=== PATIENT | male | born 1935 | race Caucasian/White ===

== ENCOUNTER → 2016-05-25 | Outpatient (CLI) | payer MEDICARE, BC ==
[2015-06-13 11:16] VITALS: BP 127/62
[~2016-05-25] MED LIST: ALBU2.5V13 NEB; AMLO10TA2 PO; AMLO1TAB13 PO; ASPI-482 PO; ASPI81TA9 PO; BYSTOLIC20 MG PO; CHOL10002 PO; CHOL20003 PO; CYAN10005 PO; EZET1TAB5 PO; FERR325T72 PO; FLUT16SP NS; FLUT1DIS3 INH; FURO-68 PO; GABA600T2 PO; LOSA100T6 PO; MULT-658 PO; MULT1TAB97 PO; NABU500T PO; NIAC1TBM PO; NITR0.4T SL; NITR1PAT9 TD; OMEG1CAP16 PO; OMEG1CAP43 PO; PANT40TA5 PO; SUCR1TAB29 PO
--- NOTE | 2016-05-25 15:18 | EKG ---
[facility] [address] [place] [address] Test Date: 2016-05-25 Test Time: 15:23:13 Pat Name: STEPHANY MCNEILL Department: Room: Gender: M Engineer Internship: ENRRIQUE : 1935 Requested By: SHAN JENKINS Order Number: [id number] Reading MD: Ra Domingo Measurements Intervals [place] Rate: 47 P: 90 NM: 174 QRS: -14 QRSD: 118 T: 6 QT: 508 QTc: 454 Interpretive Statements SINUS BRADYCARDIA RBBB NON-SPECIFIC ST/T CHANGES Electronically Signed On 05-26-2016 15:43:28 RUN LEAD by Ra Domingo
[2016-05-25 15:23] LABS: BASO # 0.1 x10^3/uL (0.0-0.2); BASO % 1 % (0-3); EOS % 3 % (0-3); HEMATOCRIT 42.3 % (39.0-53.0); LYMPH # 1.6 x10^3/uL (1.0-4.8); LYMPH % 26 % (24-48); MEAN CORPUSCULAR HEMOGLOBIN 30 pg (25-35); MEAN CORPUSCULAR HGB CONC 33 g/dL (31-37); MEAN CORPUSCULAR VOLUME 90 fL (79-100); MONO % 9 % (0-9); NEUT % 61 % (31-73); PLATELET COUNT 141 x10^3/uL (140-400); RED BLOOD COUNT 4.71 x10^6/uL (4.30-5.70); RED CELL DISTRIBUTION WIDTH 12.6 % (11.5-14.5)
[2016-05-25 15:45] LABS: ALBUMIN 3.6 g/dL (3.4-5.0); ALBUMIN/GLOBULIN RATIO 1.1 (1.0-1.7); CALCIUM 9.1 mg/dL (8.5-10.1); CREATININE 1.6 mg/dL (0.7-1.3); GFR 41.9; POTASSIUM 3.9 mmol/L (3.5-5.1); TOTAL BILIRUBIN 0.6 mg/dL (0.2-1.0); TOTAL PROTEIN 6.8 g/dL (6.4-8.2)
== END | disposition home or self-care (01) ==
LOC: SURGPAT 14:14
PROVIDERS: ATTEND Neurological Surgery
DX: I45.19 Other right bundle-branch block (principal)
CPT/HCPCS: 36415; 80053; 85027; 87641; 93005

== ENCOUNTER → 2016-10-16 | Outpatient (CLI) | payer MEDICARE, BC ==
[2016-05-28 13:56] VITALS: BP 120/55
[~2016-10-16] MED LIST changes: -ALBU2.5V13 NEB; +ALBU2.5V14 NEB; +BUPIVACAINE MPF 0.25% 10 ML VIAL. ONE; +HYDR-2762 PO; +methylPREDNISolone ACETATE 40 MG/ML VIAL. ONE
--- NOTE | 2016-10-16 23:43 | PAIN ---
DATE OF SERVICE: 10/16/2016 DIAGNOSES: 1. Lumbar spondylosis with post-lumbar laminectomy syndrome. 2. Myofascial pain. HISTORY OF PRESENT ILLNESS: The patient is a 81-year-old male who returns for followup status post previous lumbar facet injections as well as radiofrequency ablation; this was in 01/2016. The patient eventually had surgery for decompressive laminectomy at L4 and L5 levels with Dr. Lei Sheldon. The patient reports he did very well with this and back pain and most of the leg pain is gone. He reports that there is significant amount of pain now in the right side and points to the area just lateral to his posterior-superior iliac spine in the superior medial aspect of the gluteus on the right side and also similar in the same area on the left side, but less intense. The patient reports it awakens him from sleep occasionally, but not every night. He usually sleeps fairly well. It is better when he is sitting down or lying down and worse with changing positions only; going from sitting to standing position or vice versa is when he feels the pain most significantly and most significantly on the right side. The patient reports it is an 8 on a scale of 10 at all times unless he is lying down. The patient reports that it is much better. The patient reports no new motor or sensory deficits, no new bowel or bladder incontinence or other complaints and occasional radiation into the left lower extremity, but the pain is significantly exacerbated on the right side worse than the left and again with changing positions, most specifically with leaning backwards, but the pain is not in the spine itself, it is to the lateral aspect of the iliac posterior spine and into the gluteus. PHYSICAL EXAMINATION: VITAL SIGNS: Today, the patient's blood pressure is 126/74, pulse 47, respirations 20, temperature is 97.8 degrees Fahrenheit, height is 5 feet 7 inches, weight is 182 pounds. GENERAL: The patient is awake, alert, oriented, appropriate, very pleasant demeanor. HEENT: Shows normocephalic and atraumatic. Extraocular movements are intact and symmetrical. The patient is wearing eyeglasses. Oral cavity shows mucous membranes are moist and pink. Dentition is intact. NECK: Shows anterior throat supple without palpable lymphadenopathy noted. Swallow reflex is symmetrical. CHEST: Shows normal on inspection. Breath sounds are clear to auscultation bilaterally. HEART: Shows S1 and S2 clear. No murmurs auscultated. ABDOMEN: Soft, nontender, nondistended. No palpable organomegaly is noted. No rebound or guarding demonstrated. BACK: Shows spine grossly in the midline, well-healed surgical scarring is noted in the lumbar distribution, some minor flattening of lumbar paraspinous musculature, is symmetrical on palpation and inspection. No significant tenderness. The patient shows good rotational motion both laterally greater than 10 degrees right and left as well as extension greater than 10 degrees, forward flexion of 45 degrees without pain in the spine itself. With palpation, it shows significant tenderness in the lateral aspect just past the posterior superior iliac spine bilaterally, worse on the right than the left with significant very severe tenderness with palpation, but without significant radiation on either side. Very firm rope-like musculature in the superior medial gluteus and this is where the patient demonstrates with one finger pointing to the pain when he is changing positions and moving. EXTREMITIES: Lower extremities showed deep tendon reflexes 1+ in the patellar and tendo calcaneus tendons. Motor exam is strong with 5/5 dorsiflexion, extension, quadriceps and hamstring flexion. Options were discussed with the patient. The patient's old chart was reviewed as his current medication regimen and updated. Current review of systems is updated today as well, and we will proceed with trigger point injections of the gluteus musculature bilaterally as identified. Risks were again discussed including but not limited to bleeding, infection, possibility of intravascular injection sequelae, spread of local anesthetic and numbness, side effects of steroid medication as well as poor results regarding pain control. The patient understands and wishes to proceed. The patient will return to the clinic in approximately 2 weeks for followup, was counseled on his return appointment, activity level and side effects to be aware of. DIAGNOSES: 1. Myofascial pain. 2. Lumbar degenerative disk disease with spondylosis and post-lumbar laminectomy syndrome. PROCEDURE: Trigger point injection of bilateral superior medial gluteus using local anesthetic under sterile prep and drape. MEDICATIONS INJECTED: A total of 40 mg of Depo-Medrol; a total of 10 mL of 0.25% bupivacaine, 5 mL to right side and 5 mL to left side, with negative aspiration prior to injection on each side. CONDITION AT DISCHARGE: Stable. The patient tolerated the procedure well, had no complications. ARBEN BUNCH MD DR: Kaylyn JOB#: [id number] / [id number]
== END | disposition home or self-care (01) ==
LOC: PNCL 07:39
PROVIDERS: ATTEND Anesthesiology
DX: M79.1 Myalgia (principal); M51.36 Other intervertebral disc degeneration, lumbar region; M47.816 Spondylosis without myelopathy or radiculopathy, lumbar region; M96.1 Postlaminectomy syndrome, not elsewhere classified; I25.10 Atherosclerotic heart disease of native coronary artery without angina pectoris; E78.00 Pure hypercholesterolemia, unspecified; I10 Essential (primary) hypertension; J44.9 Chronic obstructive pulmonary disease, unspecified; M19.90 Unspecified osteoarthritis, unspecified site; I73.9 Peripheral vascular disease, unspecified; Z98.41 Cataract extraction status, right eye
CPT/HCPCS: 20552; J1030; J3490

== ENCOUNTER → 2016-12-31 | Outpatient (CLI) | payer MEDICARE, BC ==
[2016-05-28 13:56] VITALS: BP 120/55
[~2016-12-31] MED LIST changes: +ASPI-612 PO; -ASPI81TA9 PO; -CHOL20003 PO; +CHOL20009 PO; +EZET1TAB35 PO; -EZET1TAB5 PO; -OMEG1CAP16 PO; +OMEG1CAP27 PO; -SUCR1TAB29 PO; +SUCR1TAB35 PO
--- NOTE | 2016-12-31 15:29 | PAIN ---
DATE OF SERVICE: 12/31/2016 PROGRESS NOTE FOR PAIN CLINIC DIAGNOSES: 1. Lumbar spondylosis with post-lumbar laminectomy syndrome. 2. Myofascial pain. HISTORY OF PRESENT ILLNESS: The patient is a 81-year-old male who returns for followup status post trigger point injections on 10/16/2016. The patient reports he did very well for about a month. The pain was near 100% improved. After that time, the pain began to return in his low back, bilateral posterior gluteus and posterior hips only with walking, standing, changing positions or twisting of the spine. The patient reports the pain is at an 8 on a scale of 10 at its worst and it is at least at 5 and it is 5 today. The patient reports it is aching, dull, shooting, constant becoming more severe. The patient did have a lumbar laminectomy in 05/2016 and the pain was much reduced after that time, but after a few months, the pain began to return. He did very well after trigger point injections in 10/2016, but the pain is now returning again in the similar areas in the low back. The patient reports no new motor or sensory deficits, no new bowel or bladder incontinence. He is sleeping through the night, feels much better when he is off his feet, sitting or lying down, much worse with standing and walking. PHYSICAL EXAMINATION: VITAL SIGNS: The patient's blood pressure is 116/58, pulse 51, respirations 18, temperature 98.0 degrees Fahrenheit. Height is 5 feet 7 inches, weighs 182 pounds. GENERAL: The patient is awake, alert, oriented, appropriate, very pleasant demeanor. HEENT: Head shows normocephalic, atraumatic. Extraocular movements are intact and symmetrical. Oral cavity, mucous membranes are moist and pink. Dentition is intact. NECK: Shows anterior throat supple. Swallow reflex is symmetrical. CHEST: Normal on inspection. Breath sounds clear to auscultation bilaterally. HEART: Shows S1 and S2 clear. ABDOMEN: Soft, nontender, nondistended. No palpable organomegaly with no rebound or guarding demonstrated. BACK: Shows spine grossly in the midline. Well healed surgical scars noted in the lumbar distribution. Lumbar paraspinous muscle shows some moderate tenderness with palpation in the middle and upper aspects, in the lower aspects there is very severe tenderness with very firm rope-like musculature bilaterally, more tender on the right than the left in the paraspinous musculature. This is also true in to the superior medial gluteus, again worse on the right side than the left with very firm rope-like musculature, very tender and consistent with trigger point areas of musculature in the bilateral areas of the gluteus as on previous exam. No specific radiation is demonstrated. The patient shows good rotational motion of lumbar spine without significant increase in pain. EXTREMITIES: Lower extremities show deep tendon reflexes 1+ in the patellar and tendo calcaneus tendons. Motor exam is strong with 5/5 dorsiflexion, extension, quadriceps and hamstring flexion. Options were discussed with the patient and the patient's old chart was reviewed as his current medication regimen updated. Current review of systems updated today as well. We will proceed with trigger point injections of the bilateral lumbar paraspinous musculature as well as bilateral gluteus musculature. Risks were discussed including but not limited to bleeding, infection, possibility of intravascular injection sequelae, spread of local anesthetic and numbness, side effects of steroid medication and poor results regarding pain control. The patient understands and wishes to proceed. The patient will return to clinic in approximately 2 weeks for followup. He was counseled to return appointment, activity level and side effects to be aware of. DIAGNOSIS: Myofascial pain. PROCEDURE: Trigger point injections, bilateral lumbar paraspinous musculature and bilateral gluteus musculature using local anesthetic under sterile prep and drape. MEDICATIONS INJECTED: A 40 mg of Depo-Medrol plus 7 mL of 0.25% bupivacaine with negative aspiration at each injection. CONDITION AT DISCHARGE: Stable. The patient tolerated procedure well, had no complications. ARBEN BUNCH MD DR: DOLLY/lauren JOB#: [id number] / [id number]
== END | disposition home or self-care (01) ==
LOC: PNCL 10:25
PROVIDERS: ATTEND Anesthesiology
DX: M79.1 Myalgia (principal); M47.816 Spondylosis without myelopathy or radiculopathy, lumbar region; M96.1 Postlaminectomy syndrome, not elsewhere classified; I25.10 Atherosclerotic heart disease of native coronary artery without angina pectoris; E78.00 Pure hypercholesterolemia, unspecified; I10 Essential (primary) hypertension; J44.9 Chronic obstructive pulmonary disease, unspecified; M19.90 Unspecified osteoarthritis, unspecified site; F17.200 Nicotine dependence, unspecified, uncomplicated; I73.9 Peripheral vascular disease, unspecified; Z98.41 Cataract extraction status, right eye; Z86.69 Personal history of other diseases of the nervous system and sense organs; Z88.8 Allergy status to other drugs, medicaments and biological substances
CPT/HCPCS: 20553; J1030; J3490

== ENCOUNTER → 2017-03-09 | Outpatient (CLI) | payer MEDICARE, BC ==
[2017-02-09 11:04] VITALS: BP 142/47
[~2017-03-09] MED LIST changes: +CARV12.5 PO; +CRESTOR20 MG PO; +FERR-26 PO
--- NOTE | 2017-03-09 12:15 | PAIN ---
DATE OF SERVICE: 03/09/2017 DIAGNOSES: 1. Lumbar spondylosis with post-lumbar laminectomy syndrome. 2. Myofascial pain. HISTORY OF PRESENT ILLNESS: The patient is a 81-year-old male who returns for followup status post trigger point injections, last seen on 12/31/2016. The patient did very well with these with about 80-90% improvement after the last visit. The patient reports he is having increased pain now in the low back and into his right hip as well as the mid upper back on the right side greater than the left, but across the low back bilaterally. The patient reports it is aching, sharp and painful and rates as 9 on a scale of 10 at all times at worst, least and average. The patient reports it is worse with walking, standing, change in positions, better with lying down, but it does awaken him from sleep if he lays on his right side. No radiation to the lower extremities. No difficulty with any loss of function with the lower extremities. No bowel or bladder incontinence. PHYSICAL EXAMINATION: VITAL SIGNS: Today, the patient's blood pressure is 130/62, pulse 54, respirations are 18, temperature 97.8 degrees Fahrenheit, height is 5 feet 7 inches, weight is 173 pounds. GENERAL: The patient is awake, alert, oriented, appropriate, very pleasant demeanor. HEENT: Head shows normocephalic, atraumatic. The patient wears eyeglasses. Extraocular movements are intact and symmetrical. Oral cavity, mucous membranes are moist and pink. Dentition is intact. NECK: Shows anterior throat supple without palpable lymphadenopathy noted. Swallow reflex is symmetrical. CHEST: Shows normal on inspection. Breath sounds clear to auscultation bilaterally. HEART: Shows S1 and S2 clear. ABDOMEN: Soft, nontender, nondistended. No palpable organomegaly is noted. No rebound or guarding demonstrated. BACK: Shows spine grossly in the midline. Lumbar paraspinous muscle shows some moderate tenderness with palpation in the thoracic paraspinous musculature on the right and very firm rope-like musculature detected on the right side only. Left side is supple and nontender. Very firm, tender musculature consistent with trigger point musculature on the right side. This is true into the lumbar paraspinous musculature as well on the right, but not the left. A very firm, very tender rope-like musculature, very easily palpable and very tender with palpation, but without radiation in the right paraspinous musculature in the upper lumbar distribution. In the lower lumbar distribution, the patient has tenderness on both sides, right and left with very firm rope-like musculature as well in the lower lumbar distribution bilaterally only. The patient also has some significant tenderness and the most tender point over the right lateral and superior gluteus is a very firm rope-like musculature, which has a significant consistency, a very firm tenderness and is very tender with some radiation into the posterior thigh with deep palpation. EXTREMITIES: The patient's lower extremities showed deep tendon reflexes at 1+ in the patellar and tendo calcaneus tendons. Motor exam is strong with 5/5 dorsiflexion, extension, quadriceps and hamstrings and are equal. Options were discussed with the patient. The patient's old chart was reviewed as his current medication regimen updated. Current review of systems updated today as well. We will proceed with trigger point injections of the aforementioned musculature. Risks were again discussed including, but not limited to bleeding, infection, possibility of intravascular injection sequelae, spread of local anesthetic and numbness, side effects of steroid medication and poor results regarding pain control. The patient understands and wishes to proceed. The patient will return to clinic in approximately 2 weeks for followup, was counseled on return appointment, activity level and side effects to be aware of. DIAGNOSIS: Myofascial pain. PROCEDURE: Trigger point injections of bilateral lumbar inferior paraspinous musculature, right superior lumbar musculature, right thoracic paraspinous musculature and right gluteus musculature using a sterile prep and drape under local anesthetic. MEDICATIONS INJECTED: A total of 40 mg of Depo-Medrol plus total of 6 mL of 0.25% bupivacaine after negative aspiration at each injection. CONDITION AT DISCHARGE: Stable. The patient tolerated procedure well, had no complications. ARBEN BUNCH MD DR: DOLLY/lauren JOB#: [id number] / [id number]
== END | disposition home or self-care (01) ==
LOC: PNCL 10:09
PROVIDERS: ATTEND Anesthesiology
DX: M79.1 Myalgia (principal); M47.816 Spondylosis without myelopathy or radiculopathy, lumbar region; M96.1 Postlaminectomy syndrome, not elsewhere classified; I11.0 Hypertensive heart disease with heart failure; I50.9 Heart failure, unspecified; I25.10 Atherosclerotic heart disease of native coronary artery without angina pectoris; I73.9 Peripheral vascular disease, unspecified; E78.00 Pure hypercholesterolemia, unspecified; J44.9 Chronic obstructive pulmonary disease, unspecified; F17.200 Nicotine dependence, unspecified, uncomplicated; Z88.8 Allergy status to other drugs, medicaments and biological substances; Z98.41 Cataract extraction status, right eye; Z86.69 Personal history of other diseases of the nervous system and sense organs; Z86.39 Personal history of other endocrine, nutritional and metabolic disease
CPT/HCPCS: 20553; J1030; J3490

== ENCOUNTER → 2017-03-23 | Outpatient (CLI) | payer MEDICARE, BC ==
[2017-02-09 11:04] VITALS: BP 142/47
[~2017-03-23] MED LIST changes: +ALLO300T PO; -BUPIVACAINE MPF 0.25% 10 ML VIAL. ONE; +GADOBUTROL 7.5 MMOL/7.5 ML VIAL IV ONE; -methylPREDNISolone ACETATE 40 MG/ML VIAL. ONE
--- NOTE | 2017-03-23 14:33 | KCIC ---
EXAM: Lumbar spine MRI without and with contrast. HISTORY: Lower back pain and left lower extremity radiculopathy. TECHNIQUE: Multiplanar, multisequence magnetic resonance imaging of the lumbar spine was performed prior to and following the administration of 7 cc Gadavist intravenous contrast. COMPARISON: None. FINDINGS: There is minimal retrolisthesis of L5 on S1. There is straightening of lumbar lordosis. There is degenerative endplate remodeling with osteophytosis and Schmorl's node formation at all levels. There is disc desiccation at all levels. The conus terminates at L1. There are small renal cortical cysts. There are postoperative changes at L4-L5, described in detail below. At L1-L2, there is anterior predominant endplate remodeling. There is no stenosis. At L2-L3, there is a disc bulge and endplate remodeling. There is mild facet arthropathy. There is hypertrophy of the ligament of flavum. There is mild central canal stenosis. At L3-L4, there is a disc bulge and endplate line. There is mild facet arthropathy. There is hypertrophy of the ligamentum flavum. There is mild central canal stenosis. At L4-L5, there are partial laminectomy changes. There is enhancing scar/granulation tissue within the laminectomy decompression space and bilateral lateral recesses. There is a posterior central to right paracentral disc protrusion with right paracentral superior extrusion extending 12 mm superior to the disc space. There is also a peripheral enhancing 13 x 11 x 4 mm extruded or sequestered disc fragment along the left paracentral aspect of L4. These findings are superimposed on a diffuse disc bulge and endplate osteophytosis. There is moderate facet arthropathy. There is mild bilateral foraminal stenosis. There is severe central canal stenosis despite partial laminectomy changes at this level. At L5-S1, there is a disc bulge and endplate remodeling. There is mild bilateral facet arthropathy. There is mild central canal stenosis. IMPRESSION: 1. L4-L5: Posterior central to right paracentral disc protrusion with superior extrusion and left paracentral superior disc extrusion or sequestered disc fragment superimposed on a disc bulge, endplate osteophytosis and facet arthropathy, resulting in mild bilateral foraminal and severe central canal stenosis. There are partial laminectomy changes with associated suspected scar/granulation tissue within the laminectomy decompression space and lateral recesses at this level. 2. Degenerative change at the remainder of the lumbar levels, described in detail above. Electronically signed by: Karlie Smith MD (03/23/2017 2:29 PM) [id number]
== END | disposition home or self-care (01) ==
LOC: KCIC MRI 13:19
PROVIDERS: ATTEND Neurological Surgery
DX: M48.07 Spinal stenosis, lumbosacral region (principal); M48.061 Spinal stenosis, lumbar region without neurogenic claudication; M54.10 Radiculopathy, site unspecified; N28.1 Cyst of kidney, acquired; I10 Essential (primary) hypertension; J44.9 Chronic obstructive pulmonary disease, unspecified; Z79.01 Long term (current) use of anticoagulants
CPT/HCPCS: 72158; A9585

== ENCOUNTER → 2017-03-30 | Outpatient (CLI) | payer MEDICARE, BC ==
[2017-02-09 11:04] VITALS: BP 142/47
[~2017-03-30] MED LIST changes: +DOCU-109 PO; -GADOBUTROL 7.5 MMOL/7.5 ML VIAL IV ONE; +METH750T2 PO
[2017-03-30 14:58] LABS: BASO # 0.1 x10^3/uL (0.0-0.2); BASO % 1 % (0-3); EOS % 3 % (0-3); HEMATOCRIT 42.6 % (39.0-53.0); HEMOGLOBIN 14.3 g/dL (13.0-17.5); LYMPH # 1.9 x10^3/uL (1.0-4.8); LYMPH % 22 % (24-48); MEAN CORPUSCULAR HEMOGLOBIN 30 pg (25-35); MEAN CORPUSCULAR HGB CONC 34 g/dL (31-37); MEAN CORPUSCULAR VOLUME 88 fL (79-100); MONO % 7 % (0-9); NEUT % 67 % (31-73); PLATELET COUNT 146 x10^3/uL (140-400); RED BLOOD COUNT 4.82 x10^6/uL (4.30-5.70); RED CELL DISTRIBUTION WIDTH 14.9 % (11.5-14.5); WHITE BLOOD COUNT 8.4 x10^3/uL (4.0-11.0)
[2017-03-30 15:28] LABS: ALBUMIN 3.6 g/dL (3.4-5.0); ALBUMIN/GLOBULIN RATIO 1.1 (1.0-1.7); CALCIUM 9.4 mg/dL (8.5-10.1); CREATININE 1.5 mg/dL (0.7-1.3); GFR 45.1; POTASSIUM 3.6 mmol/L (3.5-5.1); TOTAL BILIRUBIN 0.8 mg/dL (0.2-1.0); TOTAL PROTEIN 6.9 g/dL (6.4-8.2)
--- NOTE | 2017-03-30 17:21 | RAD ---
Chest, 2 views, 03/30/2017: History: Preop evaluation for lumbar surgery Comparison is made to a study from 02/07/2017. The heart size and pulmonary vascularity are normal. A coronary artery stent is projected over the anterior aspect of the heart. There is calcific plaquing of the aorta. No pulmonary infiltrates are seen. There is no evidence of pleural fluid. Moderate spurring is present in the spine. A surgical plate and screws is evident in the lower cervical region. IMPRESSION: No acute cardiopulmonary abnormality is detected.
== END | disposition home or self-care (01) ==
LOC: SURGPAT 14:18
PROVIDERS: ATTEND Neurological Surgery
DX: Z01.818 Encounter for other preprocedural examination (principal); M51.26 Other intervertebral disc displacement, lumbar region; Z95.5 Presence of coronary angioplasty implant and graft
CPT/HCPCS: 36415; 71020; 80053; 85025; 87641

== ENCOUNTER 2017-04-01 06:48 | Observation (INO) | payer MEDICARE, BC ==
--- NOTE | 2017-03-31 15:06 | PREOP HP ---
DATE OF SERVICE: 04/01/2017 HISTORY OF PRESENT ILLNESS: The patient is a pleasant 81-year-old man who is having difficulty with low back pain along with pain which radiates into his left leg. That pain tends to radiate into the left anterior lateral thigh and to the knee. The problem started about one month ago and has been slowly worsening. He rates his pain as a 10/10. He says he is extremely sore in the mornings. He says that he fell this morning after his leg gave out. He is taking oxycodone for pain. He did undergo lumbar surgery at L4-L5 in 05/2016 and did very well until about a month ago. PAST MEDICAL HISTORY: Arthritis, hypertension, ulcer. PAST SURGICAL HISTORY: Cardiac stent 2009, lumbar laminectomy, L4-L5, 05/2016. FAMILY HISTORY: Hypertension. SOCIAL HISTORY: Retired. . Quit smoking greater than 10 years ago. Drinks alcohol one to two times per month. ALLERGIES: No known drug allergies. CURRENT MEDICATIONS: Amlodipine, gabapentin, fish oil, Centrum, vitamin D, vitamin B12, carvedilol, rosuvastatin, furosemide, allopurinol. REVIEW OF SYSTEMS: A 12-point review of systems was obtained and is noncontributory except for that mentioned above. NEUROSURGERY EXAMINATION: GENERAL APPEARANCE: Alert, pleasant, no acute distress. HEAD: Normocephalic and atraumatic. SKIN: Warm and dry. BACK: Lower lumbar spine tender to palpation, lumbar incision well healed. EXTREMITIES: No clubbing, cyanosis, or edema. NEUROLOGIC: Alert and oriented x 3. Strength 5/5 in bilateral lower extremities except 4/5 left hip flexor and 4+/5 left quadriceps. Sensory intact to light touch in bilateral lower extremities except for decreased in left anterior thigh and anterior leg to light touch. Reflexes trace and symmetric in lower extremities, negative straight leg raising, unsteady antalgic gait favoring his left leg. IMAGING: Reviewed. I reviewed his lumbar MRI scan. On that study at L4-L5 there are postoperative changes. On the right side, there is a right paracentral disk protrusion with superior extrusion. On the left side, there is an enhancing left sequestered disk fragment, which is extruded superiorly on the left behind the mid and upper body of L4. There is severe central canal stenosis associated with disk herniations. PLAN: The patient has severe lumbar spinal stenosis associated with large disk herniations. The disk herniation on the left side is not as large as the problem on the right, but is associated with significant symptomatology and leg weakness. He should undergo lumbar laminectomy and diskectomy. I did discuss this with the patient and his . They understand. They would like for me to go ahead. We will make the arrangements. SHAN JENKINS MD DR: YASH/lauren JOB#: [id number] / [id number]
[2017-04-01] VITALS (10 sets, daily range): BP systolic 114–132; BP diastolic 56–76
[~2017-04-01] VITALS: Ht 170.2 cm; Wt 78.0 kg
[~2017-04-01 06:48] MED LIST changes: +BACITRACIN 50,000 UNIT in IV NORMAL SALINE 1000ML BAG 1,000 ML IRR ONE; -DOCU-109 PO; -METH750T2 PO
[2017-04-01] MEDS ORDERED: MORPHINE SULFATE 2 MG/ML DISP.SYRIN. IV PRN (07:00)
[2017-04-01] MEDS ORDERED: ONDANSETRON PF 4 MG/2 ML VIAL. IV PRN ×2 (07:00→14:45)
[2017-04-01] MEDS ORDERED: fentaNYL PF VIAL 100 MCG/2 ML VIAL IV PRN ×3 (07:00→14:45)
[2017-04-01] MEDS ORDERED: PROCHLORPERAZINE 10 MG/2 ML VIAL. IV PRN (07:00)
[2017-04-01] MEDS ORDERED: LIDOCAINE 1% PF 2 ML VIAL. ID PRN (07:00)
[2017-04-01] MEDS ORDERED: HYDROmorphone 2 MG/ML VIAL IV PRN (07:00)
[2017-04-01] MEDS ORDERED: GELATIN SPONGE SIZE 100. ONE (07:28)
[2017-04-01] MEDS ORDERED: KETOROLAC 60 MG/2 ML INJ FOR OR. ONE (07:28)
[2017-04-01] MEDS ORDERED: BUPIVAC MPF-EPI 0.5%-1:200000 30 ML VIAL. ONE (07:28)
[2017-04-01] MEDS ORDERED: THROMBIN TOPICAL 20,000 UNIT SPRAY.SYRN KIT TP ONE (07:29)
[2017-04-01] MEDS: IV RINGERS,LACTATED 1000ML 1,000 ML IV SCH ×2 (07:30→15:10)
[2017-04-01] MEDS ORDERED: PROPOFOL 20 ML IV ONE (08:03)
[2017-04-01] MEDS ORDERED: DEXAMETHASONE SOD PHOS 20 MG/5 ML VIAL. ONE (08:03)
[2017-04-01] MEDS ORDERED: LIDOCAINE 2% PF Vial for OR 5 ML VIAL. ONE (08:03)
[2017-04-01] MEDS ORDERED: ONDANSETRON PF 4 MG/2 ML VIAL. ONE (08:03)
[2017-04-01] MEDS ORDERED: ROCURONIUM 50 MG/5 ML VIAL. ONE (08:04)
[2017-04-01] MEDS ORDERED: PHENYLEPHRINE 10 MG/ML VIAL. ONE (08:04)
[2017-04-01] MEDS ORDERED: fentaNYL PF VIAL 100 MCG/2 ML VIAL ONE (08:04)
[2017-04-01] MEDS ORDERED: REMIFENTANIL 2 MG VIAL. IV ONE (08:04)
[2017-04-01] MEDS ORDERED: DESFLURANE 61 TO 120 MINUTES IH ONE (10:12)
[2017-04-01] MEDS ORDERED: PROPOFOL 100 ML IV ONE (10:36)
[2017-04-01] MEDS ORDERED: GLYCOPYRROLATE 1 MG/5 ML VIAL. ONE (10:36)
[2017-04-01] MEDS ORDERED: NEOSTIGMINE METHYLSULFATE 5 MG/5 ML SYRINGE. ONE (10:37)
[2017-04-01] MEDS ORDERED: DESFLURANE > 120 MINUTES IH ONE (11:23)
[2017-04-01] MEDS ORDERED: PROPOFOL 50 ML IV ONE (12:12)
[2017-04-01] MEDS ORDERED: REMIFENTANIL 1 MG VIAL. IV ONE (12:47)
[2017-04-01] MEDS ORDERED: 0.9 % SODIUM CHLORIDE 50 ML VIAL. IJ ONE (12:47)
[2017-04-01] MEDS ORDERED: NITROGLYCERIN SUBLINGUAL 0.4 MG BOTTLE OF 25. SL PRN (14:30)
[2017-04-01] MEDS: POTASSIUM CL 20MEQ D5-0.45NACL 1,000 ML IV SCH (14:32)
[2017-04-01] MEDS ORDERED: 0.9 % SODIUM CHLORIDE 10 ML DISP.SYRIN. IV PRN (14:45)
[2017-04-01] MEDS ORDERED: MAGNESIUM HYDROXIDE 2,400 MG/30 ML ORAL.SUSP. PO PRN (14:45)
[2017-04-01] MEDS ORDERED: HYDROcodone/APAP 7.5/325MG 1 TAB TABLET PO PRN (14:45)
[2017-04-01] MEDS ORDERED: diphenhydrAMINE HCL 25 MG CAPSULE PO PRN (14:45)
[2017-04-01] MEDS ORDERED: MAG HYDROX/ALUMINUM HYD/SIMETH 30 ML ORAL.SUSP PO PRN (14:45)
[2017-04-01] MEDS ORDERED: diphenhydrAMINE 50 MG/ML VIAL IV PRN (14:45)
[2017-04-01] MEDS ORDERED: CALCIUM CARBONATE 500 MG TAB.CHEW PO PRN (14:45)
[2017-04-01] MEDS ORDERED: ACETAMINOPHEN 325 MG TABLET. PO PRN (14:45)
[2017-04-01] MEDS: ALLOPURINOL 300 MG TABLET. PO SCH (15:00)
[2017-04-01] MEDS: fentaNYL PF VIAL 100 MCG/2 ML VIAL IV PRN ×2 (15:12→15:29)
[2017-04-01] MEDS: CARVEDILOL 12.5 MG TABLET. PO SCH (19:36)
[2017-04-01] MEDS ORDERED: ATORVASTATIN CALCIUM 40 MG TABLET. PO SCH (21:00)
[2017-04-01] MEDS ORDERED: ASPIRIN ENTERIC COATED 81 MG TABLET.DR. PO SCH (21:00)
[2017-04-01] MEDS: GABAPENTIN 300 MG CAPSULE. PO SCH (21:44)
[2017-04-01] MEDS: DOCUSATE SODIUM 100 MG CAPSULE. PO SCH (21:45)
[2017-04-01] MEDS: METHOCARBAMOL 750 MG TABLET PO SCH (21:45)
[2017-04-01] MEDS: amLODIPine BESYLATE 10 MG TABLET PO SCH (21:46)
[2017-04-01] MEDS: HYDROcodone/APAP 7.5/325MG 1 TAB TABLET PO PRN (21:47)
[2017-04-02] MEDS: POTASSIUM CL 20MEQ D5-0.45NACL 1,000 ML IV SCH (03:52)
[2017-04-02] MEDS: HYDROcodone/APAP 7.5/325MG 1 TAB TABLET PO PRN (06:17)
[2017-04-02 06:20] VITALS: BP 110/60
[2017-04-02] MEDS: DOCUSATE SODIUM 100 MG CAPSULE. PO SCH (08:17)
[2017-04-02] MEDS: GABAPENTIN 300 MG CAPSULE. PO SCH (08:18)
[2017-04-02] MEDS: METHOCARBAMOL 750 MG TABLET PO SCH (08:18)
[2017-04-02] MEDS: ALLOPURINOL 300 MG TABLET. PO SCH (08:18)
[2017-04-02] MEDS: amLODIPine BESYLATE 10 MG TABLET PO SCH (08:21)
[2017-04-02] MEDS: CARVEDILOL 12.5 MG TABLET. PO SCH (08:23)
[2017-04-02] MEDS ORDERED: CYANOCOBALAMIN (VITAMIN B-12) 1,000 MCG TABLET. PO SCH (09:00)
[2017-04-02] MEDS ORDERED: FUROSEMIDE 40 MG TABLET. PO SCH (09:00)
[2017-04-02] MEDS ORDERED: OMEGA-3 FATTY ACIDS/FISH OIL 1,000 MG CAPSULE. PO SCH (09:00)
[2017-04-02] MEDS ORDERED: CHOLECALCIFEROL (VITAMIN D3) 1,000 UNIT TABLET PO SCH (09:00)
[2017-04-02 11:00] VITALS: BP 120/49
--- NOTE | 2017-04-02 11:27 | DISCH ---
DISCHARGE INSTRUCTIONS Condition on Discharge Condition on Discharge: Stable Activity After Discharge Activity Instructions for Disc: Activity as tolerated, Avoid exertion Other activity instructions: no driving for a week Bathing Instructions: Shower-keep dressing dry Lifting Instructions after Dis: No heavy lifting, No pulling or pushing, Do not lift >10 pounds Diet after Discharge Additional Diet Restrictions: resume home diet Wound Incision Care Wound/Incision Care: Ice to area for comfort Other wound/incision instructi: may remove dressing in 48 hrs if dry then may shower- no soaking Contacting the after DC Call your doctor for: Concerns you may have Follow-Up Follow up with: Dr. Jenkins's nurse in 2 weeks [phone] SHAN JENKINS MD Apr 02, 2017 11:27
[2017-04-02] MEDS ORDERED: METH750T2 PO (11:30)
[2017-04-02] MEDS ORDERED: HYDR-2762 PO (11:30)
[2017-04-02] MEDS ORDERED: DOCU-109 PO (11:30)
[2017-04-02 14:00] VITALS: BP 116/56
--- NOTE | 2017-04-02 18:17 | PATHOLOGY ---
PATHOLOGY REPORT * * * * * * * * FINAL DIAGNOSIS: Segments of fibrocartilaginous tissue and bone, lumbar decompression and disc: - Degenerative changes of fibrocartilaginous tissue. COMMENT: There is no evidence of an acute inflammatory process or malignancy. (JPM:preet; 04/02/2017) REPORT ELECTRONICALLY SIGNED BY: Delroy Quiroga M.D. DATE/TIME: 04/02/2017 18:17 * * * * * * * * GROSS PATHOLOGY: Received in formalin labeled "Rodriguez Teran, lumbar decompression and disc," are multiple segments of benavides-white rubbery and gritty tissue measuring 6.7 x 5.9 x 1.3 cm in aggregate dimensions, containing small fragments of bone. The tissue is submitted representatively in cassette A1. (TSD; 04/01/2017) INITIAL CPT CODE(S): A; 84171 Professional services performed [place] [facility] [place] [address] Technical services performed by [facility] at [address] [place] [address]. SPECIMEN(S) RECEIVED: A.Lumbar decompression and disc CLINICAL HISTORY: Severe stenosis, lumbar herniated disc PATIENT: RODRIGUEZ TERAN /AGE: 12 1935 (Age: 81) PATIENT #: [id number] ALT CASE #: SPECIMEN COLLECTION DATE: 04/01/2017 SPECIMEN RECEIVED DATE: 04/01/2017 [facility] - [address] [place] [address] - PHONE: [phone] * * * END OF REPORT * * *
--- NOTE | 2017-04-05 18:31 | OP ---
DATE OF SURGERY: 04/01/17 PREOPERATIVE DIAGNOSES: 1. Previously operated spine x 2, L4-L5. 2. Herniated lumbar disc, right L4-L5 and herniated lumbar disc, left L4-L5 with severe left lumbar radiculopathy. POSTOPERATIVE DIAGNOSES: 1. Previously operated spine x 2, L4-L5. 2. Herniated lumbar disc, right L4-L5 and herniated lumbar disc, left L4-L5 with severe left lumbar radiculopathy. OPERATION PERFORMED: Bilateral laminectomy, L4-L5 with dissection through scar, identifying the L4 roots and removal of herniated disc material, left L4-L5 and right L4-L5. SURGEON: Lei Jenkins M.D. TECHNICAL ARTIST: JAZMINE Sosa assisted with the surgery, assisted with the exposure, the microdecompression and discectomy as well as the closure. OPERATIVE INDICATIONS: The patient is a very pleasant 81-year-old who a number of years ago I performed surgery upon for a recurrent herniated disc and he did very well. He then presented with severe left leg pain along with weakness of his left quadriceps and on imaging studies, was found to have a very large right-sided herniated disc at L4-L5 which had migrated superiorly. A portion of this appeared to have crossed the midline and compressed the left L4 root at the region of the pedicle. Because of his weakness and severe pain, I recommended lumbar surgery. I discussed with him the fact that it has been a very difficult case based on the 2 previous surgeries, a large amount of bone removal, which had been performed in the past and the dense scarring that he had as related to this. He understood the surgery, the risks, technique and he wished for me to go ahead. DESCRIPTION OF PROCEDURE: Under general endotracheal anesthesia, the patient was positioned prone on the Suman table with lumbar regions prepped and draped in the standard fashion. TAWANDA hose and AV impulse boots were applied for DVT prophylaxis. A microscope was draped. Fluoroscopy was draped and brought into field. Monitoring was established. Ancef 2 grams was given less than 1 hour prior to the initiation of the surgery. Using fluoroscopic guidance, an incision was made reopening his previous incision and carrying the opening slightly superiorly and inferiorly over the L4-L5 interspace. He had a partial laminectomy in the past with removal of portions of the spinous process and I worked down through the scar and identified the residual spinous processes and reflected the paraspinal muscles and placed self-retaining retractors. I began to remove scar and exposed the edges of his previous laminotomies. However, they were very extensive and his foraminotomy inferiorly at L4-L5 was also extensive. I then worked superiorly on the right side and I exposed the residual lamina at the upper portion of the body of L4 and drilled through this to find dura and then worked laterally down to the pedicle and around the pedicle again dissecting scar away and I exposed the exiting L4 root. Then beginning at the axilla of the root working inferiorly, I began to develop a dissected path towards the L4-L5 disc and I was able to visualize then herniated disc material which had herniated superiorly. I began to remove this disc material and this markedly decompressed the entire region. After I completed my discectomy at L4-L5 on the right, then I went to the left side in a similar fashion. I drilled down along the residual lamina of L4 and then worked laterally to the pedicle, around the pedicle and visualized again the L4 root. This was at an earlier takeoff and as around to the pedicle, there was a large herniated disc, which was wedged into its axilla. I incised this region, I performed a discectomy and began to remove multiple disc fragments and as I worked, the L4 root became very well decompressed. I explored carefully. I felt that I had an excellent discectomy. The roots were very free. I irrigated copiously. I removed the retractors and obtained hemostasis in the muscle and I closed the wound in layers with absorbable suture. Skin was closed with a 4-0 subcuticular stitch. I felt the surgery went very well and the patient was taken to the recovery room with marked improvement in his radicular pain. I was quite pleased with the surgery. LEI JENKINS MD DR: YASH/lauren JOB#: [id number] / [id number] DENNIS
== END 2017-04-02 14:30 | disposition home or self-care (01) ==
LOC: SURG 06:48 → 4 SOUTHEST 14:30
PROVIDERS: ADMIT Neurological Surgery; ATTEND Neurological Surgery
DX: M48.061 Spinal stenosis, lumbar region without neurogenic claudication (principal); M51.16 Intervertebral disc disorders with radiculopathy, lumbar region; M19.90 Unspecified osteoarthritis, unspecified site; I10 Essential (primary) hypertension; Z82.49 Family history of ischemic heart disease and other diseases of the circulatory system; Z87.891 Personal history of nicotine dependence; F10.10 Alcohol abuse, uncomplicated; Z95.5 Presence of coronary angioplasty implant and graft
CPT/HCPCS: 63030; 76000; 88304; 97110; 97116; 97162; G0378; G0379; G8978; G8979; G8980; J0690; J1100; J1885; J2405; J2704; J2710; J3010; J3490; J7030; J7120; J2001

== ENCOUNTER → 2017-06-14 | Outpatient (CLI) | payer MEDICARE, BC ==
[~2017-06-14] MED LIST changes: -ALBU2.5V14 NEB; -ALLO300T PO; -AMLO10TA2 PO; -AMLO1TAB13 PO; -ASPI-482 PO; -ASPI-612 PO; -BACITRACIN 50,000 UNIT in IV NORMAL SALINE 1000ML BAG 1,000 ML IRR ONE; +BUPIVACAINE MPF 0.25% 10 ML VIAL.; -BYSTOLIC20 MG PO; -CARV12.5 PO; -CHOL10002 PO; -CHOL20009 PO; -CRESTOR20 MG PO; -CYAN10005 PO; -EZET1TAB35 PO; -FERR-26 PO; -FERR325T72 PO; -FLUT16SP NS; -FLUT1DIS3 INH; -FURO-68 PO; -GABA600T2 PO; -HYDR-2762 PO; -LOSA100T6 PO; -MULT-658 PO; -MULT1TAB97 PO; -NABU500T PO; -NIAC1TBM PO; -NITR0.4T SL; -NITR1PAT9 TD; -OMEG1CAP27 PO; -OMEG1CAP43 PO; -PANT40TA5 PO; -SUCR1TAB35 PO; +methylPREDNISolone ACETATE 40 MG/ML VIAL.
== END | disposition home or self-care (01) ==
LOC: PNCL 12:55
DX: M79.1 Myalgia (principal); E78.00 Pure hypercholesterolemia, unspecified; I11.0 Hypertensive heart disease with heart failure; I50.9 Heart failure, unspecified; J44.9 Chronic obstructive pulmonary disease, unspecified; Z87.39 Personal history of other diseases of the musculoskeletal system and connective tissue; Z86.69 Personal history of other diseases of the nervous system and sense organs; Z98.41 Cataract extraction status, right eye; Z88.6 Allergy status to analgesic agent; Z88.8 Allergy status to other drugs, medicaments and biological substances
CPT/HCPCS: 20553; J1030; J3490

== ENCOUNTER → 2017-06-29 | Outpatient (CLI) | payer MEDICARE, BC | END | disposition home or self-care (01) | LOC: PNCL 10:19 | DX: M79.1 Myalgia (principal); M47.816 Spondylosis without myelopathy or radiculopathy, lumbar region; M96.1 Postlaminectomy syndrome, not elsewhere classified; I11.0 Hypertensive heart disease with heart failure; I50.9 Heart failure, unspecified; I25.10 Atherosclerotic heart disease of native coronary artery without angina pectoris; E78.00 Pure hypercholesterolemia, unspecified; J44.9 Chronic obstructive pulmonary disease, unspecified; F17.200 Nicotine dependence, unspecified, uncomplicated; Z88.6 Allergy status to analgesic agent; Z87.39 Personal history of other diseases of the musculoskeletal system and connective tissue; Z98.41 Cataract extraction status, right eye; Z86.69 Personal history of other diseases of the nervous system and sense organs; Z88.8 Allergy status to other drugs, medicaments and biological substances | CPT/HCPCS: 20553; J1030; J3490 ==

== ENCOUNTER → 2017-07-05 | Outpatient (CLI) | payer MEDICARE, BC ==
[2017-07-05] MEDS: GADOBUTROL 7.5 MMOL/7.5 ML VIAL IV ×2 (15:31)
[2017-07-05 15:34] LABS: ISTAT CREATININE 1.8 mg/dL (0.7-1.3)
== END | disposition home or self-care (01) ==
LOC: KCIC MRI 14:46
DX: M54.16 Radiculopathy, lumbar region (principal); M48.061 Spinal stenosis, lumbar region without neurogenic claudication; Z98.890 Other specified postprocedural states
CPT/HCPCS: 72158; 82565; A9585

== ENCOUNTER → 2017-07-15 | Outpatient (CLI) | payer MEDICARE, BC ==
[2017-07-15 13:25] LABS: ADD MAN DIFF? NO
[2017-07-15 13:28] LABS: BASO % 1 % (0-3); EOS # 0.3 x10^3/uL (0.0-0.7); EOS % 4 % (0-3); HEMATOCRIT 42.3 % (39.0-53.0); HEMOGLOBIN 14.2 g/dL (13.0-17.5); LYMPH # 1.8 x10^3/uL (1.0-4.8); LYMPH % 29 % (24-48); MEAN CORPUSCULAR HEMOGLOBIN 29 pg (25-35); MEAN CORPUSCULAR HGB CONC 34 g/dL (31-37); MEAN CORPUSCULAR VOLUME 86 fL (79-100); MONO # 0.6 x10^3/uL (0.0-1.1); MONO % 10 % (0-9); NEUT # 3.6 x10^3uL (1.8-7.7); NEUT % 57 % (31-73); PLATELET COUNT 154 x10^3/uL (140-400); RED BLOOD COUNT 4.89 x10^6/uL (4.30-5.70); RED CELL DISTRIBUTION WIDTH 14.5 % (11.5-14.5); WHITE BLOOD COUNT 6.2 x10^3/uL (4.0-11.0)
[2017-07-15 13:44] LABS: ALBUMIN 3.5 g/dL (3.4-5.0); ALK PHOS 86 U/L (46-116); ALT (SGPT) 21 U/L (16-63); ANION GAP 10 (6-14); AST (SGOT) 16 U/L (15-37); BLOOD UREA NITROGEN 18 mg/dL (8-26); BUN/CREATININE RATIO 9 (6-20); CALCIUM 9.5 mg/dL (8.5-10.1); CARBON DIOXIDE 31 mmol/L (21-32); CHLORIDE 100 mmol/L (98-107); GFR 32.3; GLUCOSE 148 mg/dL (70-99); SODIUM 141 mmol/L (136-145); TOTAL BILIRUBIN 0.5 mg/dL (0.2-1.0); TOTAL PROTEIN 6.9 g/dL (6.4-8.2)
[2017-07-15 13:47] LABS: POTASSIUM 2.9 mmol/L (3.5-5.1)
[2017-07-15 20:14] LABS: MRSA BY PCR Negative (Negative)
== END | disposition home or self-care (01) ==
LOC: SURGPAT 12:16
DX: Z01.818 Encounter for other preprocedural examination (principal); M51.16 Intervertebral disc disorders with radiculopathy, lumbar region
CPT/HCPCS: 36415; 80053; 85025; 87641

== ENCOUNTER → 2018-01-10 | Outpatient (CLI) | payer MEDICARE, BC ==
[2017-07-23 11:32] VITALS: BP 126/65
[~2018-01-10] MED LIST changes: +ALBU2.5V14 NEB; +ALLO300T PO; +AMLO10TA2 PO; +AMLO1TAB13 PO; +ASPI-482 PO; +ASPI-612 PO; -BUPIVACAINE MPF 0.25% 10 ML VIAL.; +BYSTOLIC20 MG PO; +CARV12.5 PO; +CHOL10002 PO; +CHOL20009 PO; +CRESTOR20 MG PO; +CYAN10005 PO; +DOCU-109 PO; +EZET1TAB35 PO; +FERR325T14 PO; +FERR325T72 PO; +FLUT16SP NS; +FLUT1DIS3 INH; +FURO-68 PO; +GABA600T2 PO; +HYDR-2762 PO; +LOSA100T6 PO; +METH750T2 PO; +MULT-658 PO; +MULT1TAB97 PO; +NABU500T PO; +NIAC1TBM PO; +NITR0.4T SL; +NITR1PAT9 TD; +OMEG1CAP27 PO; +OMEG1CAP43 PO; +OXYC1TAB7 PO; +PANT40TA5 PO; +SUCR1TAB35 PO; -methylPREDNISolone ACETATE 40 MG/ML VIAL.
--- NOTE | 2018-01-10 14:29 | KCIC ---
MRI Lumbar Spine without contrast History: Back pain, neuropathy, previous surgeries Technique: Multiplanar, multi sequential noncontrast MR imaging was performed of the lumbar spine. Contrast: None Comparison: 07/05/2017 Findings: There is motion degradation. Vertebral body stature is unchanged, again multilevel Schmorl's nodes. There is again prominent L4-5 endplate edema, overall increased most notable of L5. There is also extent of edema into the bilateral L5 pedicles overall increased in interval. There is no significant new fluid in the L4-5 intervertebral disc space. Conus terminates at L1. AP alignment is similar. There is mild to moderate narrowing L4-5 intervertebral disc space somewhat greater the interval, other mild degenerative disc disease at other levels of the lumbar spine. L1-L2: Neural foramina and spinal canal are adequate. L2-L3: There is again minimal bulge and moderate to severe buckling of the ligamentum flavum as well as mild to moderate facet hypertrophic change. There is mild narrowing of the far lateral recesses bilaterally. Neural foramina are overall adequate. L3-L4: There is minimal disc osteophyte complex. There is mild facet hypertrophic change and buckling of the ligamentum flavum. There is minimal narrowing of the far left lateral recess from posteriorly. Neural foramina are overall adequate. L4-L5: There again has been posterior decompression. There is facet hypertrophic change. There is again extradural signal abnormality anteriorly, posterior to the L4 vertebral body which is internally hyperintense on the T2 and STIR sequence. This has overall decreased in size in interval, residual about 1.4 cm CC by 0.6 cm AP by 1.3 cm transverse. There is a lesser degree of indentation upon the ventral thecal sac in the right lateral recess. However there is residual [id number] narrowing of the thecal sac including of the lateral recesses. There is disc osteophyte complex and bulge contributing to fairly severe left and moderate right neural foramina compromise. L5-S1: There is again minimal bulge/protrusion. There is mild buckling of the ligamentum flavum and facet degenerative change. There is minimal narrowing of the far left lateral recess from posteriorly as seen previously. Disc osteophyte complex in combination with facet degenerative change contributes to moderate neural foramina compromise bilaterally somewhat greater on the left. Impression: 1. There is residual, increased L4-5 endplate edema, nonspecific findings which may be reactive/degenerative in etiology given the persistence over long period of time without new significant fluid in the intervertebral disc space, presuming no suspicion for underlying infection. Previously seen anterior extradural signal abnormality posterior to the L4 vertebral body is less prominent with decreased right lateral recess stenosis although residual mild to moderate spinal stenosis at L4-5, other mild lateral recess stenosis as described. 2. There is multilevel lumbar neural foramina compromise as described with more significant narrowing on the left at L4-5 and moderate narrowing on the right at L4-5 and bilaterally at L5-S1. 3. There is multilevel lumbar degenerative disc disease greatest at L4-5. Electronically signed by: Guru Florez MD (01/10/2018 2:26 PM) [id number]
== END | disposition home or self-care (01) ==
LOC: KCIC MRI 13:28
PROVIDERS: ATTEND Internal Medicine Cardiovascular Disease
DX: M51.36 Other intervertebral disc degeneration, lumbar region (principal); M48.07 Spinal stenosis, lumbosacral region; M48.061 Spinal stenosis, lumbar region without neurogenic claudication; M25.78 Osteophyte, vertebrae; M51.46 Schmorl's nodes, lumbar region; M51.27 Other intervertebral disc displacement, lumbosacral region; I13.0 Hypertensive heart and chronic kidney disease with heart failure and stage 1 through stage 4 chronic kidney disease, or unspecified chronic kidney disease; I50.33 Acute on chronic diastolic (congestive) heart failure; N18.3 Chronic kidney disease, stage 3 (moderate); I25.10 Atherosclerotic heart disease of native coronary artery without angina pectoris; R60.0 Localized edema; Z86.718 Personal history of other venous thrombosis and embolism; Z86.79 Personal history of other diseases of the circulatory system; Z87.891 Personal history of nicotine dependence; Z86.39 Personal history of other endocrine, nutritional and metabolic disease; Z87.39 Personal history of other diseases of the musculoskeletal system and connective tissue; Z86.69 Personal history of other diseases of the nervous system and sense organs; Z90.49 Acquired absence of other specified parts of digestive tract; Z68.30 Body mass index [BMI] 30.0-30.9, adult; Z82.49 Family history of ischemic heart disease and other diseases of the circulatory system
CPT/HCPCS: 72148

== ENCOUNTER → 2018-02-02 | Outpatient (CLI) | payer MEDICARE, BC ==
[2017-07-23 11:32] VITALS: BP 126/65
[~2018-02-02] MED LIST changes: -AMLO10TA2 PO; +AMLO10TA6 PO; +IOHEXOL 180 MG/ML 10 ML VIAL. ONE; +LIDOCAINE 2% PF 2ML VIAL. ONE; -LOSA100T6 PO; +LOSA100T7 PO; +methylPREDNISolone ACETATE 40 MG/ML VIAL. ONE; +methylPREDNISolone ACETATE 80 MG/ML VIAL. ONE
--- NOTE | 2018-02-02 10:39 | PAIN ---
DATE OF SERVICE: 02/02/2018 PROGRESS NOTE FOR PAIN CLINIC DIAGNOSES: 1. 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 2. Myofascial pain. HISTORY OF PRESENT ILLNESS: The patient is an 82-year-old male who returns for followup, last seen on 06/29/2017. The patient has since had surgery in his lumbar spine for removal of herniation disk and a reoperation in July of this year, 07/22/2017. The patient did very well initially but has some significant pain still in the low back and radiating into the bilateral lower extremity, slightly more on the right than the left but mostly in the low back. The patient has seen his neurosurgeon who is recommending any further surgery and would like to try some conservative measures as well. The patient reports his pain is a 9 on a scale of 10 at its worst, 9 on average, 5 at its least and is a 9 today in the low back aching, dull, shooting into the right leg, mostly in the lateral anterior thigh, posterior gluteus, posterior thigh but again only intermittently, mostly in the low back. The patient reports it awakens him from sleep but only very rarely. He was initially doing better with walking and changing in positions, now having difficulty with walking and changing positions or getting around. The patient reports no loss of motor function but significant fatigability specially with the right leg and he reports "can't do any activities." PHYSICAL EXAMINATION: VITAL SIGNS: Today, the patient's blood pressure 119/55, pulse is 48, respirations are 18, temperature is 98.3 degrees Fahrenheit, height is 5 feet 7 inches and weight is 161 pounds. GENERAL: The patient is awake, alert, oriented, appropriate and very pleasant demeanor. HEENT: Head is normocephalic and atraumatic. Extraocular movements are intact and symmetrical. Oral cavity: Mucous membranes moist and pink. Dentition is intact. NECK: Shows anterior throat supple without palpable lymphadenopathy noted. Swallow reflex symmetrical. CHEST: Shows normal with inspection. Breath sounds clear to auscultation bilaterally. HEART: Shows S1 and S2 clear. No murmurs auscultated. ABDOMEN: Soft, nontender and nondistended. No palpable organomegaly is noted. No rebound or guarding demonstrated. BACK: Shows spine grossly in the midline. Normal appearing thoracic kyphosis and lumbar lordotic curvature flattening with well-healed surgical scarring noted in the lumbar distribution. EXTREMITIES: The patient's lower extremities show deep tendon reflexes at 1+ in the patellar and tendo-calcaneus tendons. Motor exam is strong with 5/5 dorsiflexion and extension and equal bilaterally. Peripheral pulses are 1+ posterior tibia. No peripheral edema is noted. The patient's straight leg raising noted to be negative for reproduction of any radicular symptoms bilaterally. The patient is able to stand, has difficulty walking, favoring his right lower extremity using a cane in his left hand. Options were discussed with the patient. The patient's old chart was reviewed as well as his current medication regimen updated. Current review of systems updated today as well and we will proceed with lumbar epidural steroid injections today at the L4-L5 level using fluoroscopy. Risks were again discussed including, but not limited to bleeding, infection, possibility of epidural hematoma and subsequent neurological compromise, dural puncture, headaches, spinal cord and/or nerve damage, side effects of steroid medication and poor results regarding pain control. The patient understands and wished to proceed. The patient will return to the clinic in approximately 2 weeks for followup, was counseled as to return appointment, activity level and side effects to be aware of. DIAGNOSES: Lumbar radiculopathy with post-lumbar laminectomy syndrome and lumbar spondylosis. PROCEDURE: Lumbar epidural steroid injection, translaminar approach, L4-L5 level using C-arm fluoroscopic guidance under sterile prep and drape using local anesthetic. MEDICATIONS INJECTED: A total of 120 mg Depo-Medrol plus 10 mL of preservative-free normal saline and 2 mL of Isovue for contrast. CONDITION AT DISCHARGE: Stable. The patient tolerated the procedure well and had no complications. ARBEN BUNCH MD DR: DOLLY/lauren JOB#: [id number] / [id number]
== END | disposition home or self-care (01) ==
LOC: PNCL 07:38
PROVIDERS: ATTEND Anesthesiology
DX: M47.26 Other spondylosis with radiculopathy, lumbar region (principal); M96.1 Postlaminectomy syndrome, not elsewhere classified; Z88.5 Allergy status to narcotic agent; M79.1 Myalgia
CPT/HCPCS: 62323; J1030; J1040; J2001; Q9965

== ENCOUNTER → 2018-02-17 | Outpatient (CLI) | payer MEDICARE, BC ==
[2017-07-23 11:32] VITALS: BP 126/65
--- NOTE | 2018-02-18 00:23 | PAIN ---
DATE OF SERVICE: 02/17/2018 PROGRESS NOTE FOR PAIN CLINIC DIAGNOSES: Lumbar radiculopathy with post-lumbar laminectomy syndrome and lumbar spondylosis. HISTORY OF PRESENT ILLNESS: The patient is an 82-year-old male who returns for followup status post lumbar epidural steroid injection x 1. The patient reports good results about 75%-80% improvement for about 3 weeks and pain being returning now over the past few days in the low back, more on the right than the left and into the lower extremity, mostly in the lateral aspect of the thigh and anterior thigh. The patient reports it as a 9 on a scale of 10 at its worst, 8 on average and 8 at its least and is an 8 today; worse with standing and walking; better with sitting or lying down or leaning forward. It does not awaken him from sleep at night. The patient reports it is aching and sharp, shooting and again sometimes dull and radiating; worse with extension of the spine; better with forward flexion and better with sitting or lying down and worse with walking. No new motor or sensory deficits. No bowel or bladder incontinence or other complaints. PHYSICAL EXAMINATION: VITAL SIGNS: The patient's blood pressure 121/92, pulse 84, respirations 18, temperature 98.1 degrees Fahrenheit, height is 5 feet 7 inches and weight is 162 pounds. GENERAL: The patient is awake, alert, oriented, appropriate and very pleasant demeanor. HEENT: Head shows normocephalic and atraumatic. Extraocular movements are intact and symmetrical. Oral cavity, mucous membranes are moist and pink. Dentition is intact. NECK: Shows anterior throat supple without palpable lymphadenopathy noted. Swallow reflex symmetrical. CHEST: Shows normal on inspection. Breath sounds clear to auscultation bilaterally. HEART: Shows S1 and S2 clear. No murmurs auscultated. ABDOMEN: Soft, nontender and nondistended. No palpable organomegaly is noted. No rebound or guarding demonstrated. BACK: Shows spine grossly in the midline. Normal-appearing thoracic kyphosis. Some flattening of the lumbar lordotic curvature with well-healed surgical scarring noted. Lumbar paraspinous muscle shows symmetrical on inspection, on palpation shows some moderate tenderness but only diffusely in the low lumbar distribution, again without radiation. No tenderness over the sacrum or sacroiliac regions. The patient has good rotational motion of the lumbar spine, both laterally greater than 10 degrees right and left as well as extension greater than 10 degrees, forward flexion 45 degrees without pain with extension at 10 degrees and significant pain across the low back, worse on the right than the left. EXTREMITIES: Lower extremities show deep tendon reflexes at 1+ in the patellar and tendo-calcaneus tendons. Motor exam is strong with 5/5 dorsiflexion, extension, quadriceps and hamstring flexion. Peripheral pulses are 1+ posterior tibia. No peripheral edema is noted bilaterally. Options were discussed with the patient. The patient's old chart was reviewed as well as his current medication regimen updated. Current review of systems updated today as well. We will proceed with a second in the series of the lumbar epidural steroid injection today with fluoroscopic guidance. Risks were again discussed including, but not limited to bleeding, infection, possibility of epidural hematoma, subsequent neurologic compromise, dural puncture, headaches, spinal cord and/or nerve damage, side effects of steroid medication and poor results regarding pain control. The patient understands and wished to proceed. The patient will return to the clinic in approximately 2 weeks for followup, was counseled as to return appointment, activity level and side effects to be aware of. DIAGNOSES: Lumbar radiculopathy with lumbar spondylosis and lumbar post-laminectomy syndrome. PROCEDURE: Lumbar epidural steroid injection, translaminar approach, L4-L5 level using C-arm fluoroscopic guidance under sterile prep and drape using local anesthetic. MEDICATION INJECTED: A total of 120 mg Depo-Medrol plus 10 mL of preservative-free normal saline and 2 mL of Isovue for contrast. CONDITION AT DISCHARGE: Stable. The patient tolerated the procedure well and had no complications. ARBEN BUNCH MD DR: DOLLY/lauren JOB#: [id number] / [id number]
== END | disposition home or self-care (01) ==
LOC: PNCL 08:41
PROVIDERS: ATTEND Anesthesiology
DX: M96.1 Postlaminectomy syndrome, not elsewhere classified (principal); M51.16 Intervertebral disc disorders with radiculopathy, lumbar region; M48.061 Spinal stenosis, lumbar region without neurogenic claudication; I25.10 Atherosclerotic heart disease of native coronary artery without angina pectoris; E66.9 Obesity, unspecified; I13.0 Hypertensive heart and chronic kidney disease with heart failure and stage 1 through stage 4 chronic kidney disease, or unspecified chronic kidney disease; N18.3 Chronic kidney disease, stage 3 (moderate); I50.40 Unspecified combined systolic (congestive) and diastolic (congestive) heart failure; Z87.891 Personal history of nicotine dependence; Z68.30 Body mass index [BMI] 30.0-30.9, adult; Z86.718 Personal history of other venous thrombosis and embolism; Z79.899 Other long term (current) drug therapy; Z88.5 Allergy status to narcotic agent; Z90.49 Acquired absence of other specified parts of digestive tract
CPT/HCPCS: 62323; J1030; J1040; J2001; Q9965

== ENCOUNTER → 2018-03-03 | Outpatient (CLI) | payer MEDICARE, BC ==
[2017-07-23 11:32] VITALS: BP 126/65
[~2018-03-03] MED LIST changes: +BUPIVACAINE MPF 0.25% 10 ML VIAL. ONE; -HYDR-2762 PO; +HYDR-2765 PO; +LIDOCAINE 1% PF 2 ML VIAL. ONE; -LIDOCAINE 2% PF 2ML VIAL. ONE; +LOSA100T14 PO; -LOSA100T7 PO; +NITR1PAT73 TD; -NITR1PAT9 TD
--- NOTE | 2018-03-03 22:16 | PAIN ---
DATE OF SERVICE: 03/03/2018 PROGRESS NOTE FOR PAIN CLINIC DIAGNOSES: Lumbar radiculopathy with lumbar post-laminectomy syndrome and lumbar and lumbosacral spondylosis. HISTORY OF PRESENT ILLNESS: The patient is an 82-year-old male who returns for followup status post lumbar epidural steroid injection x 2. The patient reports about 75% improvement for the first 2 weeks or so. The pains has been returning in the low back and bilateral lower extremities, rated the posterior gluteus, posterior thighs, slightly worse on the left than the right but present bilaterally and the last time was worse on the right side. The patient reports now the left side is more painful, radiated to the posterior gluteus, posterior lateral thigh, lateral anterior thigh; aching, dull, cramping in quality; rated at 8 on a scale of 10 at its worst, 8 on average and 5 at its least. The patient reports it is worse with walking, standing, change in positions. For the first 2 weeks, he was increasing his distance walking, able to do household activities with much greater ease and comfort, was traveling without as much discomfort. Now, the pain is returning. The patient reports no new motor or sensory deficits and no new bowel or bladder incontinence or other complaints. PHYSICAL EXAMINATION: VITAL SIGNS: The patient's blood pressure 124/61, pulse 53, respirations 18, temperature is 97.9 degrees Fahrenheit, height is 5 feet 7 inches and weighs 160 pounds. GENERAL: The patient is awake, alert, oriented, appropriate and very pleasant demeanor. HEENT: Head shows normocephalic and atraumatic. Extraocular movements are intact and symmetrical. Oral cavity, mucous membranes are moist and pink. Dentition is intact. NECK: Shows anterior throat supple without palpable lymphadenopathy noted. Swallow reflex symmetrical. CHEST: Shows normal on inspection. Breath sounds clear to auscultation bilaterally. HEART: Shows S1 and S2 clear. No murmurs auscultated. ABDOMEN: Soft, nontender and nondistended. No palpable organomegaly is noted. No rebound or guarding demonstrated. BACK: Shows spine grossly in the midline. Normal appearing thoracic kyphosis and lumbar lordotic curvature is slightly flattened, well-healed surgical scarring of the lumbar distribution. Lumbar paraspinous muscle shows symmetrical on inspection, on palpation shows some moderate tenderness diffusely throughout the upper, middle and lower distribution of paraspinous muscles but without radiation, without trigger points. The patient shows some good rotational motion of the lumbar spine, both laterally greater than 10 degrees right and left as well as extension greater than 10 degrees with some moderate tenderness and forward flexion at 45 degrees without significant tenderness. EXTREMITIES: Lower extremities show deep tendon reflexes 1+ in the patellar and tendo-calcaneus tendons. Motor exam is strong with 5/5 dorsiflexion, extension, quadriceps and hamstring flexion and symmetrical. Peripheral pulses are 1+ posterior tibia. No peripheral edema is noted bilaterally. Options were discussed with the patient. The patient's old chart was reviewed as well as his current medication regimen updated. Current review of systems updated today as well. We will proceed with a third in the series of lumbar epidural steroid injection today with fluoroscopic guidance. Risks were again discussed including, but not limited to bleeding, infection, possibility of epidural hematoma, subsequent neurological compromise, dural puncture, headaches, spinal cord and/or nerve damage, side effects of steroid medication and poor results regarding pain control. The patient understands and wished to proceed. The patient will return to the clinic in approximately 2 weeks for followup, was counseled as to return appointment, activity level and side effects to be aware of. DIAGNOSES: Lumbar radiculopathy with lumbar post-laminectomy syndrome and lumbar spondylosis. PROCEDURE: Lumbar epidural steroid injection, translaminar approach, L4-L5 level using C-arm fluoroscopic guidance under sterile prep and drape using local anesthetic. MEDICATION INJECTED: A total of 120 mg Depo-Medrol plus 10 mL of preservative-free normal saline and 2 mL of Isovue for contrast. CONDITION AT DISCHARGE: Stable. The patient tolerated the procedure well and had no complications. ARBEN BUNCH MD DR: DOLLY/lauren JOB#: [id number] / [id number]
== END | disposition home or self-care (01) ==
LOC: PNCL 09:34
PROVIDERS: ATTEND Anesthesiology
DX: M47.26 Other spondylosis with radiculopathy, lumbar region (principal); M54.5 Low back pain; M96.1 Postlaminectomy syndrome, not elsewhere classified; Z88.5 Allergy status to narcotic agent
CPT/HCPCS: 62323; J1030; J1040; J3490; Q9965

== ENCOUNTER → 2018-05-27 | Outpatient (CLI) | payer MEDICARE, BC ==
[2017-07-23 11:32] VITALS: BP 126/65
[~2018-05-27] MED LIST changes: -AMLO10TA6 PO; +AMLO10TA8 PO; -BUPIVACAINE MPF 0.25% 10 ML VIAL. ONE; +CYAN-25 PO; -CYAN10005 PO; +CYCL10TA2 PO; -GABA600T2 PO; +GABA600T7 PO; -IOHEXOL 180 MG/ML 10 ML VIAL. ONE; -LIDOCAINE 1% PF 2 ML VIAL. ONE; -PANT40TA5 PO; +PANT40TA77 PO; -methylPREDNISolone ACETATE 40 MG/ML VIAL. ONE; -methylPREDNISolone ACETATE 80 MG/ML VIAL. ONE
--- NOTE | 2018-05-27 15:29 | RAD ---
EXAM: Chest, 2 views. HISTORY: Viral infection. COMPARISON: 03/30/2017 FINDINGS: 2 views of the chest are obtained. There is no consolidation, pleural effusion or pneumothorax. There are chronic interstitial markings. There are symmetric circumscribed nodules overlying the lower lungs due to nipple shadows. The cardiac silhouette is prominent in size. There is cervical spinal fusion instrumentation. There are few calcified granulomas. IMPRESSION: No acute pulmonary finding. Electronically signed by: Karlie Smith MD (05/27/2018 3:25 PM) [place] [id number]
== END | disposition home or self-care (01) ==
LOC: RAD 12:24
PROVIDERS: ATTEND Family Medicine
DX: J84.10 Pulmonary fibrosis, unspecified (principal)
CPT/HCPCS: 71046

== ENCOUNTER → 2018-08-08 | Outpatient (CLI) | payer MEDICARE, BC ==
[2017-07-23 11:32] VITALS: BP 126/65
[~2018-08-08] MED LIST changes: -CYAN-25 PO; +CYAN10005 PO; +GADOBUTROL 7.5 MMOL/7.5 ML VIAL IV ONE; +IOHEXOL 240 MG/ML 50ML VIAL. PO ONE; +IOHEXOL 300 MG/ML 100ML VIAL. IV ONE; +PANT40TA5 PO; -PANT40TA77 PO
--- NOTE | 2018-08-08 14:07 | KCIC ---
EXAMINATION: Magnetic resonance imaging (MRI) of the lumbar spine with and without contrast 08/08/2018 1:15 PM HISTORY: Spondylosis with prior L4-L5 laminectomy. TECHNIQUE: Multiplanar multi-weighted MRI of the lumbar spine was performed with and without intravenous contrast using the standard lumbar spine protocol. Contrast information: 7.5 cc gadolinium-based contrast. COMPARISON: MRI lumbar spine July 05, 2017 FINDINGS: Alignment of the lumbar spine is normal. Vertebral body heights are maintained. Modic type I endplate degenerative changes are identified at L4-L5, increased since the prior examination from July 05, 2017. There is mild disc height loss at L4-L5. There is disc desiccation at all levels of the lumbar spine. Conus medullaris terminates at L1. Distal spinal cord signal intensity is normal in all sequences. Schmorl's nodes are identified involving the inferior endplate of L1, superior plate of L2 and superior endplate of L3. There is congenital narrowing of the spinal canal secondary to shortened pedicles. Laminectomy changes are identified at L4-L5. Abdominal aorta is normal in caliber. No suspicious intraperitoneal abnormality is identified. Visualized portions of the sacrum appear intact. L2-L3: There is a mild circumferential disc bulge. There is mild to moderate facet arthropathy. There is moderate bilateral neuroforaminal stenosis. 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 Findings are not significantly changed. L3-L4: There is a moderate circumferential disc bulge. There is mild facet arthropathy with ligamentum flavum infolding. There is mild bilateral neuroforaminal stenosis. Mild spinal canal stenosis. Findings are not significantly changed. L4-L5: There is an apparent right central disc protrusion which is replaced predominantly by enhancement postcontrast administration suggestive of epidural scar tissue. Previously seen disc extrusion is nearly completely resolved. There is decompression by laminectomy. No residual spinal canal stenosis. There is moderate bilateral neuroforaminal stenosis mostly secondary to epidural scar tissue. L5-S1: Disc is normal in configuration. There is moderate facet arthropathy with partial laminectomy changes. No residual spinal canal stenosis. IMPRESSION: Epidural scar tissue is identified within the ventral and right lateral epidural space at L4-L5. No evidence for recurrent disc herniation. Increased Modic type I degenerative changes at L4-L5. No residual spinal canal stenosis status post laminectomy at L4-L5. Mild degenerative changes of lumbar spine are present as described in detail above. 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 Electronically signed by: Latrice Hudson MD (08/08/2018 2:03 PM) [facility]
--- NOTE | 2018-08-08 14:40 | KCIC ---
EXAM: Abdomen and pelvis CT with intravenous contrast. HISTORY: Pain. TECHNIQUE: Computed tomographic images of the abdomen and pelvis were obtained following the administration of 100 cc Omnipaque 300 intravenous contrast. Multiplanar reformatting was performed. *One or more of the following individualized dose reduction techniques were utilized for this examination: 1. Automated exposure control. 2. Adjustment of the mA and/or kV according to patient size. 3. Use of iterative reconstruction technique. COMPARISON: Lumbar spine CT dated 07/22/2017. Note is made that a study performed 08/03/2010 is not available for comparison at the time of dictation. FINDINGS: Evaluation of the lower thorax demonstrates no infiltrate or pleural effusion. The heart is mildly enlarged to upper normal in size. There is a 9 mm cyst within the superior left hepatic lobe. There is no suspicious hepatic lesion. The gallbladder, pancreas, spleen and right adrenal gland are unremarkable. There is slight nodularity of the lateral limb of the left adrenal gland. There is renal cortical lobulation, developmental or due to scarring. No suspicious renal lesion is seen. There is no obstructive uropathy. 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 There is a tiny fat-containing right inguinal hernia. There is no appendicitis. There is no bowel obstruction. There is colonic diverticulosis without diverticulitis. There is no pathologically enlarged lymph node. There is aortic and aortic branch vessel atherosclerosis with partially calcified plaque. There is an aorto biiliac bypass. There are degenerative changes throughout the lumbar spine and both hips. This is most significant at L4-L5. There are laminectomy changes at this level. There are few benign bone islands. IMPRESSION: 1. Colonic diverticulosis without diverticulitis. 2. Mild urinary bladder wall thickening. This may be due to chronic outlet obstruction given slight deformation of the bladder base from the prostate. 3. Slight nodularity of the lateral limb of the left adrenal gland. This may be due to nodular thickening or an indeterminate 1.3 cm nodule. 4. Degenerative and postoperative changes involving the lumbar spine at L4-L5. 5. Aortobiiliac bypass. 6. Small hepatic cyst. Electronically signed by: Karlie Smith MD (08/08/2018 2:37 PM) [facility]
== END | disposition home or self-care (01) ==
LOC: KCIC MRI 12:57
PROVIDERS: ATTEND Family Medicine
DX: M47.26 Other spondylosis with radiculopathy, lumbar region (principal); M48.061 Spinal stenosis, lumbar region without neurogenic claudication; M51.16 Intervertebral disc disorders with radiculopathy, lumbar region; M12.88 Other specific arthropathies, not elsewhere classified, other specified site; K57.30 Diverticulosis of large intestine without perforation or abscess without bleeding; K76.89 Other specified diseases of liver; R00.2 Palpitations
CPT/HCPCS: 72158; 74177; A9585; Q9966; Q9967

== ENCOUNTER → 2018-08-15 | Outpatient (CLI) | payer MEDICARE, BC ==
[2017-07-23 11:32] VITALS: BP 126/65
[~2018-08-15] MED LIST changes: -GADOBUTROL 7.5 MMOL/7.5 ML VIAL IV ONE; -IOHEXOL 240 MG/ML 50ML VIAL. PO ONE; -IOHEXOL 300 MG/ML 100ML VIAL. IV ONE; +REGADENOSON 0.4 MG/5 ML DISP.SYRIN. IV ONE
--- NOTE | 2018-08-15 10:00 | RAD ---
MR#: [id number] Date of Study: 08/15/2018 Ordering Physician: LIA YARBROUGH, Referring Physician: LIA YARBROUGH, Tech: Mukul Walters MBA, RDMS, RVT, RDCS, RTR APPROVED REPORT Patient Location: OUT-PATIENT Laterality:Bilateral Indications Dizziness and Vertigo pad Doppler Spectral Velocity Analysis Right Left pCCA 72/9 cm/spCCA 86/14 cm/s mCCA 74/10 cm/smCCA 86/15 cm/s dCCA 65/11 cm/sdCCA 88/15 cm/s Bulb 90/8 cm/sBulb 95/ cm/s ECA 278/ cm/sECA 151/ cm/s pICA 200/34 cm/spICA 94/13 cm/s Caleb 186/23 cm/smICA 104/23 cm/s dICA 90/16 cm/sdICA 97/25 cm/s Vert. 67/ cm/sVert. 24/ cm/s Subcl. 140/ cm/sSubcl. 197/ cm/s ICA/CCA 2.70ICA/CCA 1.21 Findings Grayscale images the bilateral common carotid, external and internal carotid vessels reveals mild dif fuse intimal hyperplasia with 50% obstructive plaque noted on the right side. Less than 50% noted on the left side. Spectral waveforms and color Doppler of the proximal and mid internal carotid vessels demonstrate a 5 0-69% stenosis based on velocity criteria. The right vertebral velocities antegrade. ICA to CCA ratio s are elevated to 2.7 on the right side. On the left side the common carotid, internal and external carotid velocities are grossly within norm al limits suggestive 0 to less than 50% stenosis. Normal ICA to CCA ratio noted. The vertebral veloci ty is blunted but appears to be antegrade. Bilateral subclavian velocities are within normal limits without any high-grade obstructive lesions n oted. Critical Notification Critical Value: No Signed by : Lia Yarbrough, Electronically Approved : 08/15/2018 09:59:48
--- NOTE | 2018-08-15 11:34 | CARD ---
MR#: [id number] Date of Study: 08/15/2018 Ordering Physician: LIA YARBROUGH, Referring Physician: LAI YARBROUGH, Tech: Tosha Wang KATI APPROVED REPORT EXAM: Two-dimensional and M-mode echocardiogram with Doppler and color Doppler. INDICATION Cardiac Disease: CAD 2D DIMENSIONS RVDd2.2 (2.9-3.5cm)Left Atrium(2D)4.4 (1.6-4.0cm) IVSd1.0 (0.7-1.1cm)Aortic Root(2D)2.3 (2.0-3.7cm) LVDd4.9 (3.9-5.9cm)LVOT Diameter2.1 (1.8-2.4cm) PWd1.1 (0.7-1.1cm)LVDs3.1 (2.5-4.0cm) FS (%) 30.0 %SV77.5 ml LVEF(%)60.0 (>50%) Aortic Valve AoV Peak John.124.3cm/sAoV VTI29.9cm AO Peak GR.6.2mmHgLVOT Peak John.96.5cm/s AO Mean GR.3mmHgAVA (VMAX)2.58cm2 MARÍA (VTI)2.80cm2 Mitral Valve MV E Mbiiuadm36.7cm/sMV DECEL UGBT065ib MV A Zngnhmri50.9cm/sE/A Ratio1.2 Tricuspid Valve TR P. Toixiejw123dz/sRAP JCTTMLLK1iqFp TR Peak Gr.96vuDeSWBX25ufGh Pulmonary Vein S1 Pvkidlkg59.3cm/sD2 Cdmrfkvq72.5cm/s LEFT VENTRICLE The left ventricle is normal size. There is normal left ventricular wall thickness. The left ventricu lar systolic function is normal and the ejection fraction is within normal range. The Ejection Fracti on is 55-60%. There is normal LV segmental wall motion. Transmitral Doppler flow pattern is Grade II- pseudonormal filling dynamics. RIGHT VENTRICLE The right ventricle is normal size. The right ventricular systolic function is normal. ATRIA The left atrium is mildly dilated. The right atrium size is normal. The interatrial septum is intact with no evidence for an atrial septal defect or patent foramen ovale as noted on 2-D or Doppler imagi ng. AORTIC VALVE The aortic valve is normal in structure and function. Doppler and Color Flow revealed no significant aortic regurgitation. There is no significant aortic valvular stenosis. MITRAL VALVE The mitral valve is calcified but opens well. There is no evidence of mitral valve prolapse. There is no mitral valve stenosis. Doppler and Color-flow revealed trace mitral regurgitation. TRICUSPID VALVE The tricuspid valve is normal in structure and function. Doppler and Color Flow revealed trace tricus pid regurgitation. The PA pressure was estimated at 37 mmHg. There is no tricuspid valve stenosis. PULMONIC VALVE The pulmonic valve is not well visualized. Doppler and Color Flow revealed no pulmonic valvular regur gitation. There is no pulmonic valvular stenosis. GREAT VESSELS The aortic root is normal in size. The ascending aorta is not well seen. The IVC is normal in size an d collapses >50% with inspiration. PERICARDIAL EFFUSION There is no evidence of significant pericardial effusion. Critical Notification Critical Value: No <Conclusion> The left ventricular systolic function is normal and the ejection fraction is within normal range. Th e Ejection Fraction is 55-60%. There is normal LV segmental wall motion. Doppler and Color Flow revealed trace tricuspid regurgitation. The PA pressure was estimated at 37 mm Hg. Signed by : Lia Yarbrough, Electronically Approved : 08/15/2018 11:33:32
--- NOTE | 2018-08-15 12:36 | RAD ---
MR#: [id number] Date of Study: 08/15/2018 Ordering Physician: LIA YARBROUGH, Referring Physician: JABIER WRIGHT Tech: KRIS Jovel, ARRT (R) (N) APPROVED REPORT Test Type: Pharmacological Stress Nurse/Tech: Norma Alvarado RN Test Indications: CAD, Dizziness Cardiac History: Hypertension,history of a-fib Medications: See Electronic Medical Record Medical History: See Electronic Medical Record Resting ECG: SR Resting Heart Rate: 60 bpm Resting Blood Pressure: 118/53mmHg Pretest Chest Pain: No chest pain Nurse/Tech Notes Irregular rate and rhythm, lungs clear to auscultation. Consent: The procedure was explained to the patient in lay terms. Informed consent was witnessed. Jorge eout was entered into [employer]. History and Stress Test performed by RT Jaspal (Argenis) (N) Pharm. Details Pharmacologic stress testing was performed using 0.4mg per 5ml of regadenoson given intravenously ove r 7-10 seconds. Stress Symptoms No chest pain or symptoms. POST EXERCISE Reason for Termination: Infusion complete Target HR: No Max HR: 82 bpm Max Blood Pressure: 121/42mmHg Blood Pressure response to exercise: Normal blood pressure response during stress. Heart Rate response to exercise: WNL Chest Pain: No. Arrhythmia: Yes. occasional PVC ST Change: No. INTERPRETATION Stress EKG Conclusion: Baseline EKG showed sinus rhythm. No ischemic changes at peak stress. No arr hythmias. Imaging Protocol IMAGE PROTOCOL: Rest Tc-99m/stress Tc-99m 1 day Rest: Stress: Viability: Radiopharm.Tc99m EfcpullpvXg99u Sestamibi Wmkf26kIs 32mCi Img Date 08/15/2018 08/15/2018 Inj-Img Xaxm93ltn. 60min. Rest Admin Site:IV - Left HandAdministrator:RT Jaspal (Argenis)(N) Stress Admin Site: IV - Left HandAdministrator: RT Mitchell Shay)(N) STRESS DATA End Diast. Vol.105.0mlLVEDV index BSA55.0ml End Syst. Vol.30.0mlLVESV index BSA15.0ml Myocardial Zoiv237.0gEject. Lfpopupt90.0% Stress Scores Regional WT0.00Summed WT1.00 Regional WM0.00Summed WM0.00 Study quality was good. Left Ventricular size was Normal at Rest and Stress. Lung uptake was . Left Ventricular ejection fraction is 74%. The rest and stress images show normal perfusion, normal contraction and thickening. LV Perf. Quant 17 Seg. SSS0.00 17 Seg. SRS7.00 17 Seg. SDS0.00 Stress Defect Extent (% LAD)0.00Rest Defect Extent (% LAD)21.30Rev. Defect Extent (% LAD)0.00 Stress Defect Extent (% LCX) 0.00Rest Defect Extent (% LCX)10.00Rev. Defect Extent (% LCX)0.00 Stress Defect Extent (% RCA)0.00Rest Defect Extent (% RCA)8.90Rev. Defect Extent (% RCA)0.00 Stress Defect Extent (% JEANA)0.00Rest Defect Extent (% JEANA)17.20Rev. Defect Extent (% JEANA)0.00 Conclusion 1. Regadenoson cardioisotope stress test did not show any evidence of ischemia or infarct. 2. Normal left ventricular systolic function with ejection fraction calculated at 74%. 3. Low risk for cardiac events. Signed by : Werner Osman, Electronically Approved : 08/15/2018 12:35:08
== END | disposition home or self-care (01) ==
LOC: NM 07:34
PROVIDERS: ATTEND Internal Medicine Cardiovascular Disease
DX: I65.23 Occlusion and stenosis of bilateral carotid arteries (principal); I25.10 Atherosclerotic heart disease of native coronary artery without angina pectoris; I73.9 Peripheral vascular disease, unspecified; R42 Dizziness and giddiness; I10 Essential (primary) hypertension; I48.91 Unspecified atrial fibrillation
CPT/HCPCS: 78452; 93017; 93306; 93880; 96374; A9500; J2785

== ENCOUNTER → 2018-09-20 | Outpatient (CLI) | payer MEDICARE, BC ==
[2017-07-23 11:32] VITALS: BP 126/65
[~2018-09-20] MED LIST changes: +BUPIVACAINE MPF 0.25% 10 ML VIAL. ONE; +IOHEXOL 180 MG/ML 10 ML VIAL. ONE; -REGADENOSON 0.4 MG/5 ML DISP.SYRIN. IV ONE; +methylPREDNISolone ACETATE 40 MG/ML VIAL. ONE; +methylPREDNISolone ACETATE 80 MG/ML VIAL. ONE
--- NOTE | 2018-09-21 00:42 | PAIN ---
DATE OF SERVICE: 09/20/2018 PROGRESS NOTE FOR PAIN CLINIC DIAGNOSES: Lumbar radiculopathy with lumbar post-laminectomy syndrome and lumbar and lumbosacral spondylosis. HISTORY OF PRESENT ILLNESS: The patient is an 83-year-old male who returns for followup status post lumbar epidural steroid injection as well as bilateral facet joint injections, last seen 02/2018. The patient did very well, with about 75% improvement after the last lumbar epidural steroid injection. The patient reports the pain began to return, more on the left side than the right, in the low back and into the lower extremities. It now is fairly localized in his back. The patient reports he had seen his neurosurgeon. A new MRI scan was performed, which he has the results with him today, showing epidural scar tissue in the ventral and right lateral epidural space at L4-L5, with no evidence for recurrent disk herniation, no residual spinal canal stenosis, status post laminectomy at L4-L5 and mild degenerative changes of the lumbar spine present as well. The patient reports his surgeon is not recommending any further surgery. There has been increase in his pain for about the past 2-3 weeks. The patient reports the pain is stabbing, aching and sharp across the low back, becoming more constant, worse with standing, sitting or changing positions from seated to a standing position. The patient reports the pain is an 8 on a scale of 10 at its worst, average and at its least and is an 8 currently. The patient reports no new motor or sensory deficits. It has not been awakening him from sleep at night. Originally, he had been walking better, doing activities around the home and travelling easier, but over the past 2-3 weeks, it is becoming much more noticeable and painful in the low back and has stabbing quality as well. PHYSICAL EXAMINATION: VITAL SIGNS: The patient's blood pressure is 117/61, pulse 50, respirations 18 and temperature is 97.8 degrees Fahrenheit. Height is 5 feet 7 inches and weight is 180 pounds. GENERAL: The patient is awake, alert, oriented, appropriate, very pleasant demeanor. HEENT EXAMINATION: Shows normocephalic, atraumatic. Extraocular movements are intact and symmetrical. Oral cavity, mucous membranes are moist and pink. Dentition is intact. NECK: Shows anterior throat supple, without palpable lymphadenopathy noted. Swallow reflex is symmetrical. CHEST: Shows normal on inspection. Breath sounds are clear to auscultation bilaterally. HEART: Shows S1, S2 clear. No murmurs auscultated. ABDOMEN: Soft, nontender and nondistended. No palpable organomegaly is noted. No rebound or guarding demonstrated. BACK: Shows spine grossly in the midline. Normal-appearing thoracic kyphosis and lumbar lordotic curvature. Lumbar paraspinous muscle shows flattening with a well-healed surgical scar. Paraspinous muscles are moderately tender with palpation throughout the upper, middle and lower distribution of the paraspinous muscles. The patient has increased pain with left and lateral rotation, mostly to the left, greater than 10 degrees, but with extension as well as significant pain on the left side, but also significant on the right as well. EXTREMITIES: The patient's lower extremities show deep tendon reflexes 1+ in the patellar and tendo calcaneus tendons. Motor exam is strong with 5/5 dorsiflexion, extension, quadriceps and hamstring flexion and equal. Peripheral pulses are 1+ posterior tibia. No peripheral edema is noted bilaterally. Options were discussed with the patient. The patient's old chart was reviewed as was his current medication regimen updated. Current review of systems was updated today as well. We will proceed with bilateral L4-L5 and L5-S1 facet joint injections today with fluoroscopic guidance. Risks were again discussed including, but not limited to bleeding, infection, possibility of epidural hematoma and subsequent neurological compromise, dural puncture, headaches, spinal cord and/or nerve damage, side effects of steroid medication and poor results regarding pain control. The patient understands and wishes to proceed. The patient will return to the clinic in approximately 2 weeks for followup. He was counseled on his return appointment, activity level and side effects to be aware of. DIAGNOSIS: Lumbar and lumbosacral spondylosis. PROCEDURE: Bilateral L4-L5 and L5-S1 facet joint injections using C-arm fluoroscopic guidance under sterile prep and drape using local anesthetic. MEDICATION INJECTED: A total of 120 mg Depo-Medrol plus 4 mL of 0.25% bupivacaine and 2 mL total of contrast. CONDITION AT DISCHARGE: Stable. The patient tolerated the procedure well, had no complications. ARBEN BUNCH MD DR: DOLLY/lauren JOB#: [id number] / [id number]
== END | disposition home or self-care (01) ==
LOC: PNCL 13:08
PROVIDERS: ATTEND Anesthesiology
DX: M47.817 Spondylosis without myelopathy or radiculopathy, lumbosacral region (principal); M96.1 Postlaminectomy syndrome, not elsewhere classified; Z88.5 Allergy status to narcotic agent
CPT/HCPCS: 64493; 64494; J1030; J1040; J3490; Q9965

== ENCOUNTER → 2018-09-28 | Outpatient (CLI) | payer MEDICARE, BC ==
[2017-07-23 11:32] VITALS: BP 126/65
[~2018-09-28] MED LIST changes: -BUPIVACAINE MPF 0.25% 10 ML VIAL. ONE
--- NOTE | 2018-09-28 21:59 | PAIN ---
DATE OF SERVICE: 09/28/2018 PROGRESS NOTE FOR PAIN CLINIC DIAGNOSES: Lumbar radiculopathy with lumbar degenerative disk disease, lumbar post-laminectomy syndrome, spondylosis. HISTORY OF PRESENT ILLNESS: The patient is an 83-year-old male who returns to follow status post bilateral lumbar facet joint injections on 09/20/2018. The patient reports he did well for about 1 day, the pain was near 100% improved, but the pain returned very quickly by the next day where he could hardly straighten his back. The patient reports the pain is insignificant, has been very severe, has been radiating to the lower extremities, more on the right than the left. The patient reports it is worse with walking, standing and changing positions; better with sitting or lying down; does not awaken him from sleep very frequently, but occasionally will. The patient reports it is constant, aching, sharp across the low back into the bilateral lower extremities, again worse on the right side than the left, but present bilaterally. The patient reports it is 8 it is scale of 10 at its worst, average and at least over the past week and is 8 today. The patient reports no new motor or sensory deficits. No new bowel or bladder incontinence. PHYSICAL EXAMINATION: VITAL SIGNS: Blood pressure 119/59, pulse 54, respirations 18, temperature 98.1 degrees Fahrenheit. Height is 5 feet 7 inches, weighs 179 pounds. GENERAL: The patient is awake, alert, oriented, appropriate, very pleasant demeanor. HEENT: Head is normocephalic, atraumatic. Extraocular movements are intact and symmetrical. Oral cavity: Mucous membranes moist and pink. Dentition is intact. NECK: Anterior throat supple, without palpable lymphadenopathy noted. Swallow reflux is symmetrical. CHEST: Shows normal on inspection. Breath sounds are clear to auscultation bilaterally. HEART: S1, S2, clear. No murmurs auscultated. ABDOMEN: Soft, nontender, nondistended. No palpable organomegaly is noted. No rebound or guarding demonstrated. BACK: Shows spine grossly in the midline, flattening lumbar lordotic curvature. Lumbar paraspinous muscle shows symmetrical on inspection; with palpation has some moderate tenderness diffusely in the middle and lower distribution of paraspinous muscles, but good rotation with some moderate tenderness with extension, but not forward flexion. Right and left lateral rotation is performed without significant tenderness as well. EXTREMITIES: Lower extremity showed deep tendon reflexes 1+ in the patella and tendo-calcaneus tendons. Motor exam is strong with 5/5 dorsiflexion, extension, quadriceps and hamstring flexion. Peripheral pulses are 1+ posterior tibial. No peripheral edema is noted bilaterally. Options were discussed with the patient. The patient's old chart was reviewed as was his current medication regimen updated. Current review of systems updated today as well. We will proceed with lumbar epidural steroid injection today with fluoroscopic guidance. Risks were again discussed including, but not limited to bleeding, infection, possibility of epidural hematoma and subsequent neurological compromise, dural puncture, headaches, spinal cord and/or nerve damage, side effects of sterile medication, poor results regarding pain control. The patient understands and wished to proceed. The patient will return to the clinic in approximately 2 weeks for followup, was counseled as to return appointment, activity level and side effects to be aware of. DIAGNOSES: Lumbar radiculopathy with lumbar post-laminectomy syndrome and lumbar spondylosis. PROCEDURE: Lumbar epidural steroid injection, translaminar approach at L4-L5 level using C-arm fluoroscopic guidance under sterile prep and drape using local anesthetic. MEDICATION INJECTED: A total of 120 mg Depo-Medrol plus 10 mL of preservative-free normal saline and 2 mL of Isovue for contrast. CONDITION ON DISCHARGE: Stable. The patient tolerated the procedure well, had no complications. ARBEN BUNCH MD DR: DOLLY/lauren JOB#: [id number] / [id number]
== END | disposition home or self-care (01) ==
LOC: PNCL 07:56
PROVIDERS: ATTEND Anesthesiology
DX: M51.16 Intervertebral disc disorders with radiculopathy, lumbar region (principal); M96.1 Postlaminectomy syndrome, not elsewhere classified; M47.26 Other spondylosis with radiculopathy, lumbar region; Z88.5 Allergy status to narcotic agent
CPT/HCPCS: 62323; J1030; J1040; Q9965

== ENCOUNTER → 2018-11-09 | Outpatient (CLI) | payer MEDICARE, BC ==
[2017-07-23 11:32] VITALS: BP 126/65
--- NOTE | 2018-11-09 22:56 | PAIN ---
DATE OF SERVICE: 11/09/2018 DIAGNOSES: Lumbar radiculopathy with lumbar post-laminectomy syndrome and lumbar spondylosis. HISTORY OF PRESENT ILLNESS: The patient is a 83-year-old male who returns for followup status post lumbar epidural steroid injection x 1 on 09/28/2018. The patient did very well with this with about a 75% improvement initially, but the pain returned after about 1-2 weeks. The patient reports the pain returned, still significant with walking, standing, changing positions, bending, stooping, better with sitting or lying down, does not awaken him from sleep at night. The patient reports it is across the low back into the bilateral lower extremities, mostly in the lateral and anterior thighs, lateral anterior medial thighs, posterior gluteus, posterior thighs as well. The patient reports it is a 10 on a scale of 10 at all times, average, worst at least over the past week. It is aching, constant in the low back with shooting into the legs. The patient reports no new motor or sensory deficits, no new bowel or bladder incontinence. PHYSICAL EXAMINATION: VITAL SIGNS: The patient's blood pressure 90/61, pulse 53, respirations 18, temperature 97.4 degrees Fahrenheit. Height is 5 feet 7 inches, weighs 174 pounds. GENERAL: The patient is awake, alert, oriented, appropriate, very pleasant demeanor. HEENT: Head shows normocephalic, atraumatic. Extraocular movements are intact and symmetrical. NECK: Shows anterior throat supple without palpable lymphadenopathy noted. CHEST: Shows normal on inspection. Breath sounds are clear bilaterally. HEART: Shows S1, S2 clear. ABDOMEN: Obese, soft, nontender, nondistended. BACK: Shows spine grossly in the midline. Well-healed surgical scar in the lumbar distribution. Lumbar paraspinous muscle shows symmetrical on inspection and palpation, some moderate tenderness diffusely throughout the middle and lower distribution of paraspinous muscles without radiation. The patient has good rotational motion with some moderate tenderness with right and left lateral rotation as well as extension and forward flexion. EXTREMITIES: The patient's lower extremities show deep tendon reflexes at 1+ in the patellar and tendo calcaneus tendons are equal. Motor exam is approximately 5 on a scale of 5 with dorsiflexion, extension, quadriceps and hamstring flexion and symmetrical and equal as well. Peripheral pulses are 1+. No pretibial edema. No peripheral edema is noted. Options were discussed with the patient. The patient's old chart was reviewed as his current medication regimen updated. Current review of systems updated today as well. We will proceed with a second in the series of lumbar epidural steroid injection today with fluoroscopic guidance. Risks were again discussed including, but not limited to bleeding, infection, possibility of epidural hematoma, subsequent neurologic compromise, dural puncture, headaches, spinal cord and/or nerve damage, side effects of steroid medication and poor results regarding pain control. The patient understands and wished to proceed. The patient will return to clinic in approximately 2 weeks for followup, was counseled as to return appointment, activity level and side effects to be aware of. DIAGNOSIS: Lumbar radiculopathy with lumbar post-laminectomy syndrome and lumbar spondylosis. PROCEDURE: Lumbar epidural steroid injection, translaminar approach L4-L5 level using C-arm fluoroscopic guidance under sterile prep and drape using local anesthetic. MEDICATIONS INJECTED: A total of 120 mg Depo-Medrol plus 10 mL of preservative-free normal saline and 2 mL of Isovue for contrast. CONDITION AT DISCHARGE: Stable. The patient tolerated the procedure well, had no complications. ARBEN BUNCH MD DR: DOLLY/lauren JOB#: [id number] / [id number]
== END ==
LOC: PNCL 12:55
PROVIDERS: ATTEND Anesthesiology
DX: M54.16 Radiculopathy, lumbar region (principal); M96.1 Postlaminectomy syndrome, not elsewhere classified; M47.816 Spondylosis without myelopathy or radiculopathy, lumbar region; M54.5 Low back pain
CPT/HCPCS: 62323; J1030; J1040; Q9965

== ENCOUNTER → 2018-11-16 | Outpatient (CLI) | payer MEDICARE, BC ==
[2017-07-23 11:32] VITALS: BP 126/65
[~2018-11-16] MED LIST changes: -IOHEXOL 180 MG/ML 10 ML VIAL. ONE; +LIDOCAINE 1% PF 2 ML VIAL. ONE; -PANT40TA5 PO; +PANT40TA77 PO; -methylPREDNISolone ACETATE 40 MG/ML VIAL. ONE; -methylPREDNISolone ACETATE 80 MG/ML VIAL. ONE
--- NOTE | 2018-11-17 02:00 | PAIN ---
DATE OF SERVICE: 11/16/2018 PROGRESS NOTE FOR PAIN CLINIC DIAGNOSES: Lumbar radiculopathy with lumbar post-laminectomy syndrome and lumbar spondylosis. HISTORY OF PRESENT ILLNESS: The patient is 83-year-old male who returns for followup status post lumbar epidural steroid injection 1 week ago. We have scheduled for spinal cord stimulator temporary lead placement today and he has returned today wishing to proceed with that, but reports that the injection did help him temporarily and is good for about the first 5 or 6 days, the pain began to return in the low back, mainly in the left lower extremity, posterior gluteus, posterior thigh and posterior calf. The patient reports it is a 10 on scale of 10 at its worst in the past week, 8 on average, 7 at its least and is 8 today. The patient reports it is aching and dull, shooting and sometimes sharp. The patient reports no new motor or sensory deficits, no new bowel or bladder incontinence. He has been sleeping better at night after the epidural injection but again in the past this appointment help for about 1-2 weeks and the pain has returned. ARBEN BUNCH MD DR: DOLLY/lauren JOB#: [id number] / [id number]
--- NOTE | 2018-11-17 02:30 | PAIN ---
DATE OF SERVICE: 11/16/2018 PROGRESS NOTE FOR PAIN CLINIC DIAGNOSES: Lumbar radiculopathy with post-lumbar laminectomy syndrome and lumbar spondylosis. HISTORY OF PRESENT ILLNESS: This is an 83-year-old male who returns for followup status post lumbar epidural steroid injection 1 week ago. The patient reports he did quite well with this. It decreased his pain but it has been returning. It has been better for about 5 or 6 days but is now returning in the low back and left lower extremity, mostly in the posterior gluteus, posterior thigh and posterior calf. The patient was scheduled for a spinal cord stimulator temporary lead placement and would like to proceed with that. The patient did get some good results and relief with the pain from his lumbar epidural steroid injections but traditionally has had only about 1-2 weeks of relief from these recently. The patient describes the pain as aching and dull, shooting in the low back and left leg, rates it a 10 on a scale of 10 at its worst, 8 on average and a 7 at its least and is an 8 today. The patient reports no new motor or sensory deficits, no new bowel or bladder incontinence or other complaints at this time. PHYSICAL EXAMINATION: VITAL SIGNS: The patient's blood pressure is 119/57, pulse 56, respirations are 16, temperature 98.0 degrees Fahrenheit, height is 5 feet 7 inches and weight is 179 pounds. GENERAL: The patient is awake, alert, oriented, appropriate, very pleasant demeanor. HEENT: Head shows normocephalic, atraumatic. Extraocular movements are intact and symmetrical. Oral cavity shows mucous membranes moist and pink. Dentition intact. NECK: Shows anterior throat supple without palpable lymphadenopathy noted. Swallow reflex symmetrical. CHEST: Shows normal with inspection. Breath sounds clear to auscultation bilaterally. HEART: Shows S1, S2 clear. No murmurs auscultated. ABDOMEN: Soft, nontender and nondistended. BACK: Shows spine grossly in the midline. Slight exaggeration of thoracic kyphosis, some minor flattening of lumbar lordotic curvature with well-healed surgical scar noted in the lumbar distribution. Lumbar paraspinous muscle shows symmetrical on inspection, with palpation shows some moderate tenderness diffusely bilaterally, but only diffusely without radiation. The patient shows good rotational motion of the lumbar spine, both laterally as well as extension and flexion without significant increase in pain. EXTREMITIES: The patient's lower extremities show deep tendon reflexes plus 1+ in the patellar and tendo-calcaneus tendons are equal. Motor exam is approximately 5/5 in dorsiflexion, extension, quadriceps and hamstring flexion and symmetrical. Peripheral pulses are 1+ in posterior tibia. No peripheral edema is noted. Options were discussed with the patient. The patient's old chart was reviewed as his current medication regimen updated. Current review of systems updated today as well. We will proceed with spinal cord stimulator temporary lead placement x 2 today with fluoroscopic guidance. Risks were again discussed including, but not limited to bleeding, infection, possibility of epidural hematoma and subsequent neurologic compromise, dural puncture, headaches, spinal cord and/or nerve damage as well as poor results regarding pain control. The patient understands and wished to proceed. The patient will return to the clinic in approximately 1 week for removal of the stimulator leads and reassessment at that time. DIAGNOSES: Lumbar radiculopathy with post-lumbar laminectomy syndrome and lumbar spondylosis. PROCEDURE: Spinal cord stimulator temporary leads placement x 2. Under sterile prep and drape using local anesthetic and C-arm fluoroscopic guidance, after sterile prep and drape in usual fashion using C-arm fluoroscopic guidance, the T8 vertebral body was then marked externally with an external marker and tape and using C-arm fluoroscopic guidance to identify the 3-4 interspace, 1% lidocaine was used to anesthetize the area of the skin for each of the insertion site using a 14-gauge [employer] needle with stylet. His epidural space was entered without difficulty using preservative-free normal saline ydqu-[id number] technique with negative aspiration. Spinal cord stimulator leads were then threaded through the needle under direct fluoroscopic guidance to lie in the midline and posteriorly with lateral fluoroscopic view to confirm this with the first wire of the tip of the electrode superiorly at the superior endplate of T8 and the 2nd with superior endplate of T9 with the electrode to the superior tip. These were confirmed posterior in the epidural space with lateral fluoroscopic view and in the midline with AP view. [place] and stylets were removed and suture was used to secure the spinal cord stimulator leads and then sterile bandage was applied. The patient was transferred under his own power to the recovery area where Mr. Silver Ryan of [employer] carried out programming of the stimulator. The patient was discharged in good stable condition under his own power. No immediate complications identified. ARBEN BUNCH MD DR: DOLLY/lauren JOB#: [id number] / [id number]
== END ==
LOC: PNCL 12:40
PROVIDERS: ATTEND Anesthesiology
DX: M51.16 Intervertebral disc disorders with radiculopathy, lumbar region (principal); M47.816 Spondylosis without myelopathy or radiculopathy, lumbar region
CPT/HCPCS: 63650; C1897

== ENCOUNTER → 2018-11-23 | Outpatient (CLI) | payer MEDICARE, BC ==
[2017-07-23 11:32] VITALS: BP 126/65
[~2018-11-23] MED LIST changes: -LIDOCAINE 1% PF 2 ML VIAL. ONE
--- NOTE | 2018-11-23 20:05 | PAIN ---
DATE OF SERVICE: 11/23/2018 PROGRESS NOTE FOR PAIN CLINIC DIAGNOSES: Lumbar radiculopathy with lumbar post-laminectomy syndrome and lumbar spondylosis. HISTORY OF PRESENT ILLNESS: The patient is an 83-year-old male who returns for followup status post spinal cord stimulator, now temporary leads placement 1 week ago. The patient returns today reporting about 80% improvement with his low back and bilateral lower extremity pain. The patient is very pleased with his improvement. He has been increasing his activities and walking great distances around the park and in house, he has been increasing his activity at home, greater distance walking significantly, also doing household activities, sleeping better at night. The patient is very pleased with his progress. He reports his pain is a 4 on a scale of 10 in the past week at its worst, 4 on average, 3 at its least and is a 3 today. The patient reports it is aching in the low back and that is all. Again, he had increased his activity with much greater ease and comfort. The patient reports no new motor or sensory deficits, no new changes. PHYSICAL EXAMINATION: VITAL SIGNS: The patient's blood pressure 120/61, pulse is 53, respirations are 18, temperature 98.2 degrees Fahrenheit, height 5 feet 7 inches. GENERAL: The patient is awake, alert, oriented, appropriate, very pleasant demeanor. The patient is accompanied by his spouse. HEENT: Shows normocephalic, atraumatic. Extraocular movements are intact and symmetrical. The patient is wearing eyeglasses. NECK: Shows anterior throat supple. CHEST: Shows normal with inspection. Breath sounds are clear. HEART: Shows S1, S2 clear. BACK: Shows spine grossly in the midline. The patient's bandages were removed and showing a spinal cord stimulator leads, which are clean and dry, no erythema, no tenderness, no discharge. Under sterile prep and drape, the sutures were removed and the wires were removed with tips intact x 2. Again, site clean and dry. No erythema, no discharge, no significant tenderness. EXTREMITIES: The patient's lower extremities show deep tendon reflexes 1+ in the patellar and tendo-calcaneus tendons. Motor exam remain strong with 5/5 dorsiflexion and extension. PLAN: Options were discussed with the patient. The patient's old chart was reviewed as his current medication regimen updated. Current review of systems updated today as well. We will make arrangements for permanent spinal cord stimulator system placement. The patient did very well, again with about 80% improvement overall with the temporary leads and we will scheduled at upcoming. ARBEN BUNCH MD DR: DOLLY/lauren JOB#: [id number] / [id number]
== END | disposition home or self-care (01) ==
LOC: PNCL 11:51
PROVIDERS: ATTEND Anesthesiology
DX: M47.26 Other spondylosis with radiculopathy, lumbar region (principal); M96.1 Postlaminectomy syndrome, not elsewhere classified
CPT/HCPCS: G0463

== ENCOUNTER 2018-12-21 22:07 | Emergency (ER) | payer MEDICARE, BC ==
[~2018-12-21] VITALS: Ht 170.2 cm; Wt 77.1 kg
[~2018-12-21 22:07] MED LIST changes: +CYAN-25 PO; -CYAN10005 PO
--- NOTE | 2018-12-21 22:32 | PHYS DOC ---
Past Medical History Past Medical History: Asthma, Hypertension Additional Past Medical Histor: CPAP USE AT HOME, HEART DISEASE Past Surgical History: Other Additional Past Surgical Histo: STENT, BACK SURGERY, PLATE IN NECK, NERVE STIMULATOR Alcohol Use: None Drug Use: None Adult General Chief Complaint Chief Complaint: POST-OP PROBLEM HPI HPI Patient is a 83 year old male that presents with urinary retention and constipation. The patient states he had nerve stimulator placed yesterday and has not pooped or urinated since that time. The patient states he does not have feeling in the penis area. Patient rates pain as 7 out of 10 in severity and sharp in states is from the procedure. Has home pain medicine that he's been taking. Review of Systems Review of Systems Constitutional: Denies fever or chills [] Eyes: Denies change in visual acuity, redness, or eye pain [] HENT: Denies nasal congestion or sore throat [] Respiratory: Denies cough or shortness of breath [] Cardiovascular: No additional information not addressed in HPI [] GI: Denies abdominal pain, nausea, vomiting, bloody stools or diarrhea [] : Reports being unable to pee since last night. Musculoskeletal: Denies back pain or joint pain [] Integument: Denies rash or skin lesions [] Neurologic: Denies headache, focal weakness or sensory changes [] Endocrine: Denies polyuria or polydipsia [] Complete systems were reviewed and found to be within normal limits, except as documented in this note. Allergies Allergies Allergies Coded Allergies Type Severity Reaction Last Updated Verified No Known Drug Allergies 12/21/18 No Physical Exam Physical Exam Constitutional: Well developed, well nourished, no acute distress, non-toxic appearance. [] HENT: Normocephalic, atraumatic, bilateral external ears normal, oropharynx moist, no oral exudates, nose normal. [] Eyes: PERRLA, EOMI, conjunctiva normal, no discharge. [] Neck: Normal range of motion, no tenderness, supple, no stridor. [] Cardiovascular:Heart rate regular rhythm, no murmur [] Lungs & Thorax: Bilateral breath sounds clear to auscultation [] Abdomen: Bowel sounds normal, soft, no tenderness, no masses, no pulsatile masses. [] Skin: Warm, dry, no erythema, no rash. [] Back: No tenderness, no CVA tenderness. [] Extremities: No tenderness, no cyanosis, no clubbing, ROM intact, no edema. [] Neurologic: Alert and oriented X 3, normal motor function, normal sensory function, no focal deficits noted. [] Psychologic: Affect normal, judgement normal, mood normal. [] Rectal Exam: Rectal Tone was within normal limits. Current Patient Data Vital Signs Vital Signs Date Time Temp Pulse Resp B/P (MAP) Pulse Ox O2 Delivery O2 Flow Rate FiO2 12/21/18 22:15 98.6 62 18 132/60 (84) 95 Room Air 98.6 Lab Values Laboratory Tests Test 12/21/18 22:40 White Blood Count 6.9 x10^3/uL (4.0-11.0) Red Blood Count 3.93 x10^6/uL (4.30-5.70) L Hemoglobin 11.9 g/dL (13.0-17.5) L Hematocrit 34.7 % (39.0-53.0) L Mean Corpuscular Volume 88 fL (79-100) Mean Corpuscular Hemoglobin 30 pg (25-35) Mean Corpuscular Hemoglobin Concent 34 g/dL (31-37) Red Cell Distribution Width 15.0 % (11.5-14.5) H Platelet Count 153 x10^3/uL (140-400) Neutrophils (%) (Auto) 61 % (31-73) Lymphocytes (%) (Auto) 24 % (24-48) Monocytes (%) (Auto) 12 % (0-9) H Eosinophils (%) (Auto) 2 % (0-3) Basophils (%) (Auto) 1 % (0-3) Neutrophils # (Auto) 4.2 x10^3/uL (1.8-7.7) Lymphocytes # (Auto) 1.7 x10^3/uL (1.0-4.8) Monocytes # (Auto) 0.8 x10^3/uL (0.0-1.1) Eosinophils # (Auto) 0.1 x10^3/uL (0.0-0.7) Basophils # (Auto) 0.1 x10^3/uL (0.0-0.2) Sodium Level 138 mmol/L (136-145) Potassium Level 3.9 mmol/L (3.5-5.1) Chloride Level 102 mmol/L (98-107) Carbon Dioxide Level 24 mmol/L (21-32) Anion Gap 12 (6-14) Blood Urea Nitrogen 18 mg/dL (8-26) Creatinine 1.7 mg/dL (0.7-1.3) H Estimated GFR (Cockcroft-Gault) 38.9 BUN/Creatinine Ratio 11 (6-20) Glucose Level 133 mg/dL (70-99) H Calcium Level 8.9 mg/dL (8.5-10.1) Total Bilirubin 0.6 mg/dL (0.2-1.0) Aspartate Amino Transferase (AST) 27 U/L (15-37) Alanine Aminotransferase (ALT) 16 U/L (16-63) Alkaline Phosphatase 72 U/L (46-116) Total Protein 6.1 g/dL (6.4-8.2) L Albumin 3.1 g/dL (3.4-5.0) L Albumin/Globulin Ratio 1.0 (1.0-1.7) Laboratory Tests 12/21/18 22:40 Laboratory Tests 12/21/18 22:40 EKG EKG [] Radiology/Procedures Radiology/Procedures [] Course & Med Decision Making Course & Med Decision Making Pertinent Labs and Imaging studies reviewed. (See chart for details) Will get basic labs, and will get bladder scan. Bladder scan shows 361 of urine. Will have Freeman placed. Freeman placed with output of 1500. Labs are unremarkable. Creatinine is elevated at 1.7 but is at baseline. Will d/c home and have follow up with urology and the surgeon who placed neurostimulator. Dragon Disclaimer Dragon Disclaimer This electronic medical record was generated, in whole or in part, using a voice recognition dictation system. Departure Departure Impression: Primary Impression: Acute urinary retention Disposition: HOME, SELF-CARE Condition: STABLE Referrals: Pretty SULLIVAN MD (PCP) NAVA PEDROZA MD Patient Instructions: Urinary Retention, Acute, Male Additional Instructions: Thank you for visiting [facility]. We appreciate you trusting us with your care. If any additional problems come up don't hesitate to return to visit us. Please follow up with your primary care provider so they can plan additional care if needed and know about the problem that you had. If symptoms worsen come back to the Emergency Department. Any concerning symptoms that start such as chest pain, shortness of air, weakness or numbness on one side of the body, running high fevers or any other concerning symptoms return to the ER. Please leave leg bag in and see urology and your primary care. Please also talk to the surgeon who did your surgery and let him know what is going on. KATHIE VAZ APRN Dec 21, 2018 22:32
[2018-12-21 22:50] LABS: BASO # 0.1 x10^3/uL (0.0-0.2); BASO % 1 % (0-3); EOS # 0.1 x10^3/uL (0.0-0.7); EOS % 2 % (0-3); HEMATOCRIT 34.7 % (39.0-53.0); HEMOGLOBIN 11.9 g/dL (13.0-17.5); LYMPH # 1.7 x10^3/uL (1.0-4.8); LYMPH % 24 % (24-48); MEAN CORPUSCULAR HEMOGLOBIN 30 pg (25-35); MEAN CORPUSCULAR HGB CONC 34 g/dL (31-37); MEAN CORPUSCULAR VOLUME 88 fL (79-100); MONO # 0.8 x10^3/uL (0.0-1.1); MONO % 12 % (0-9); NEUT # 4.2 x10^3/uL (1.8-7.7); NEUT % 61 % (31-73); PLATELET COUNT 153 x10^3/uL (140-400); RED BLOOD COUNT 3.93 x10^6/uL (4.30-5.70); WHITE BLOOD COUNT 6.9 x10^3/uL (4.0-11.0)
[2018-12-21 22:58] LABS: CALCIUM 8.9 mg/dL (8.5-10.1); CREATININE 1.7 mg/dL (0.7-1.3); GFR 38.9; POTASSIUM 3.9 mmol/L (3.5-5.1)
[2018-12-21 23:05] LABS: ALBUMIN 3.1 g/dL (3.4-5.0); TOTAL BILIRUBIN 0.6 mg/dL (0.2-1.0); TOTAL PROTEIN 6.1 g/dL (6.4-8.2)
[2018-12-21 23:47] VITALS: BP 118/55
== END 2018-12-22 00:30 | disposition home or self-care (01) ==
LOC: ER 22:07
DX: R33.9 Retention of urine, unspecified (principal); K59.00 Constipation, unspecified; I11.9 Hypertensive heart disease without heart failure; J45.909 Unspecified asthma, uncomplicated; Z95.5 Presence of coronary angioplasty implant and graft
CPT/HCPCS: 36415; 51702; 80053; 85025; 99285-25

== ENCOUNTER → 2019-04-05 | Outpatient (CLI) | payer MEDICARE, BC ==
[~2019-04-05] MED LIST changes: +BUPIVACAINE MPF 0.25% 10 ML VIAL. ONE; -NITR0.4T SL; +NITR0.4T24 SL; +methylPREDNISolone ACETATE 40 MG/ML VIAL. ONE
--- NOTE | 2019-04-06 03:18 | PAIN ---
DATE OF SERVICE: 04/05/2019 PROGRESS NOTE FOR PAIN CLINIC DIAGNOSES: 1. Lumbar radiculopathy with lumbar spondylosis, post-lumbar laminectomy syndrome. 2. Myofascial pain. HISTORY OF PRESENT ILLNESS: The patient is an 83-year-old male who returns for followup status post spinal cord stimulator placement in November of this year. The patient reports he has been doing very well, but the pain has been increasing in his low back and his left leg. We had him meet with his [employer] data entry representative today, Silver Ryan, to reprogram the stimulator. Also, the patient has had some increased stiffness, especially in the mornings in the left low back since the stimulator was placed. The patient reports it is much worse in the morning. About 40-50 minutes after he gets up, it starts to ease up, but it is very tight and spastic throughout the day with pain radiating to the left leg, posterior gluteus, and lateral thigh. The patient reports it is 7 on a scale of 10 at its worst over the past week, 7 on average, 7 at its least and is a 7 today. The patient reports it is on and off in intensity, but aching and dull, more with activity and again especially in the morning. The patient reports once he is up and around, it gets better after 40-50 minutes, but is not. Keeping him up from sleep at night, is better with sitting or lying down during the day. The patient reports no new motor or sensory deficits, no new bowel or bladder incontinence or other complaints. Stimulator has been working well otherwise except for reprogramming with better coverage of his left lower extremity today. PHYSICAL EXAMINATION: VITAL SIGNS: The patient's blood pressure is 163/70, pulse 87, respirations are 18, temperature is 98.2 degrees Fahrenheit, height is 5 feet 7 inches, weight is 182 pounds. GENERAL: The patient is awake, alert, oriented, appropriate, very pleasant demeanor. The patient is accompanied by his spouse. HEENT: Shows normocephalic, atraumatic. Extraocular movements intact and symmetrical. Oral cavity: Mucous membranes are moist and pink. Dentition is intact. NECK: Shows anterior throat supple without palpable lymphadenopathy noted. Swallow reflex symmetrical. CHEST: Shows normal on inspection. Breath sounds clear to auscultation bilaterally. HEART: Shows S1, S2 clear. No murmurs auscultated. ABDOMEN: Soft, nontender, nondistended. BACK: Shows spine grossly in the midline, slight exaggeration of thoracic kyphosis and flattening of lumbar lordotic curvature with well-healed surgical scarring noted. Easily palpable battery stimulator generator on the left lower lumbar distribution around the area of the thoracic paraspinous musculature inferiorly on the left side only and in the upper, middle and lower distribution of paraspinous muscles in the lumbar distribution, very firm rope-like musculature, very tender without specific radiation consistent with trigger point areas of musculature, very firm, very tender, especially in the low lumbar distribution. This is also true into the superior medial and lateral aspect of the gluteus, very firm rope-like musculature as well, very tender with palpation with the patient withdrawing quickly from the examining hand. Again, no specific radiation is noted. Mild tenderness over the posterior superior iliac spine and sacroiliac region on the left side, but only mildly so. Right side is nontender throughout the paraspinous musculature in the thoracic, lumbar distribution as well as the gluteus and the sacroiliac region. EXTREMITIES: Lower extremities show deep tendon reflexes 1+ in the patellar and tendo-calcaneus tendons. Motor exam is strong with 5/5 dorsiflexion, extension, quadriceps and hamstring flexion equal and symmetrical. Options were discussed with the patient. The patient's old chart was reviewed as his current medication regimen updated. Current review of systems updated today as well and we will proceed with trigger point injections of the aforementioned musculature. Risks were again discussed including, but not limited to bleeding, infection, possibility of intravascular injection sequelae, spread of local anesthetic and numbness, side effects of steroid medication and poor results regarding pain control. The patient understands and wished to proceed. The patient will return to clinic in approximately 2 weeks for followup. He was counseled on return appointment, activity level and side effects to be aware of. DIAGNOSIS: Myofascial pain. PROCEDURE: Trigger point injections, left thoracic paraspinous musculature, left lumbar paraspinous musculature and left gluteus musculature under sterile prep and drape using local anesthetic. MEDICATION INJECTED: A total of 40 mg Depo-Medrol and 6 mL total of 0.25% bupivacaine after negative aspiration at each injection site. CONDITION AT DISCHARGE: Stable. The patient tolerated procedure well, had no complications. ARBEN BUNCH MD DR: DOLLY/lauren JOB#: [id number] / [id number]
== END ==
LOC: PNCL 10:04
PROVIDERS: ATTEND Anesthesiology
DX: M79.18 Myalgia, other site (principal); M51.16 Intervertebral disc disorders with radiculopathy, lumbar region
CPT/HCPCS: 20553; J1030; J3490

== ENCOUNTER → 2019-10-06 | Outpatient (CLI) | payer MEDICARE, BC ==
[2019-07-07 14:56] VITALS: BP 139/64
[~2019-10-06] MED LIST changes: +AMOX1TAB61 PO; +FLUT10.6 IH; +FLUT1DIS IH; +GUAI5SYR PO; +IPRA3AMP29 NEB; +IPRA4AER IH; +LACT1CAP19 PO; +POTA20TA4 PO
--- NOTE | 2019-10-06 10:40 | PAIN ---
DATE OF SERVICE: 10/06/2019 PROGRESS NOTE FOR PAIN CLINIC DIAGNOSES: 1. Lumbar radiculopathy with lumbar spondylosis and lumbar post-laminectomy syndrome. 2. Myofascial pain. HISTORY OF PRESENT ILLNESS: The patient is an 84-year-old male, who returns for followup status post spinal cord stimulator placement last November. The patient was seen in 03/2019 with reprogramming performed at that time with Adeline mohamud also, trigger point injections to the left mid back, low back and left gluteus. The patient reports he did very well for several weeks after the injection about 5 weeks, the pain was decreased by about 80%. The patient reports still some pain returning in the left side of low back with radiating pain in the left posterior gluteus, posterior thigh and calf, here today for reevaluation. The patient reports it is an 8 on a scale of 10 at its worst in the past week, 8 on an average, 5 at its least and is a 5 today. The patient reports it is aching and dull, shooting, cramping at times and stabbing around the area of the spinal cord stimulator battery placement on the left lumbar spine. The patient reports it is worse in the morning when he first gets up, but he is sleeping well at night, does not awaken him from sleep generally, but has over the past few weeks, but not more than every 8 hours. The patient reports after his injections in March, he is able to walk further, sit better and again the stimulator working fairly well, but with some increased pain in the left leg and that will be reprogrammed today with Adeline mohamud as well. PHYSICAL EXAMINATION: VITAL SIGNS: The patient's blood pressure 118/50, pulse 60, respirations 18, temperature 97.9 degrees Fahrenheit, height is 5 feet 7 inches, weighs is 170 pounds. GENERAL: The patient is awake, alert, oriented, appropriate, very pleasant demeanor. HEENT: Shows normocephalic, atraumatic. Extraocular movements are intact and symmetrical. Oral cavity: Mucous membranes are moist and pink. Dentition is intact. NECK: Shows anterior throat supple without palpable lymphadenopathy noted. Swallow reflex symmetrical. CHEST: Shows normal on inspection. Breath sounds are clear bilaterally. HEART: Shows S1, S2 clear. No murmurs auscultated. ABDOMEN: Soft, nontender and nondistended. No palpable organomegaly is noted. No rebound or guarding demonstrated. BACK: Shows spine grossly in midline, normal-appearing thoracic kyphosis and some minor flattening of lumbar lordotic curvature with well-healed surgical scarring noted. Lumbar paraspinous muscle shows symmetrical with inspection. Easily palpable spinal cord stimulator generators in the left low to mid lumbar spine, which is nontender with palpation. Thoracic paraspinous musculature, however, on the left as well as the lumbar paraspinous musculature is very firm, very rope-like musculature consistent with trigger point areas in the paraspinous musculature, very, very tender with palpation, but without specific radiation. This is true into the superior and even into the mediolateral aspect of the gluteus and gluteus on the left side, very firm rope-like musculature, very tender with palpation as well. Right side is nontender, but slightly firm, but without rope-like trigger point musculature. EXTREMITIES: The patient's lower extremities show deep tendon reflexes at 1+ in the patellar and tendo-calcaneus tendons. Motor exam is strong with 5/5 dorsiflexion, extension, quadriceps and hamstring flexion, equal. Peripheral pulses are 1+ posterior tibial. No peripheral edema is noted bilaterally. Options were discussed with the patient. The patient's old chart was reviewed as his current medication regimen updated. Current review of systems updated today as well. We will proceed with trigger point injections of the identified musculature. Risks were discussed including but not limited to bleeding, infection, possibility of intravascular injection sequelae, spread of local anesthetic and numbness, side effects of steroid medication and poor results regarding pain control. The patient understands and wished to proceed. The patient will return to clinic in approximately 4 weeks for followup or as necessary. The patient would like to call for his next appointment. Again, stimulator program will be carried out today with [employer] business office representative and we will have him follow up as scheduled. DIAGNOSIS: Myofascial pain. PROCEDURE: Trigger point injection, left sided thoracic paraspinous musculature, left lumbar paraspinous musculature and left gluteus musculature under sterile prep and drape using local anesthetic. MEDICATIONS INJECTED: A total of 40 mg of Depo-Medrol plus a total of 8 mL of 0.25% bupivacaine after negative aspiration at each injection site. CONDITION AT DISCHARGE: Stable. The patient tolerated the procedure well, had no complications. ARBEN BUNCH MD DR: DOLLY/lauren JOB#: [id number] / [id number]
== END ==
LOC: PNCL 08:09
PROVIDERS: ATTEND Anesthesiology
DX: M79.18 Myalgia, other site (principal); M54.16 Radiculopathy, lumbar region; M47.816 Spondylosis without myelopathy or radiculopathy, lumbar region; M96.1 Postlaminectomy syndrome, not elsewhere classified
CPT/HCPCS: 20553; J1030; J3490

== ENCOUNTER → 2019-11-08 | Outpatient (CLI) | payer MEDICARE, BC ==
[2019-07-07 14:56] VITALS: BP 139/64
[~2019-11-08] MED LIST changes: -BUPIVACAINE MPF 0.25% 10 ML VIAL. ONE; +BUPIVACAINE MPF 0.5% 30 ML VIAL. ONE
--- NOTE | 2019-11-08 15:31 | PAIN ---
DATE OF SERVICE: 11/08/2019 PROGRESS NOTE FOR PAIN CLINIC DIAGNOSES: Lumbar radiculopathy with lumbar spondylosis, lumbar post-laminectomy syndrome and myofascial pain. HISTORY OF PRESENT ILLNESS: The patient is an 84-year-old male who returns for followup status post trigger point injections and also has spinal cord stimulator implanted in 12/2018. The patient is doing fairly well with this, reports about 80% improvement after his trigger point injections for about 5 weeks; however, with the last set of injections with about 50% improved, that was on 10/05 of this year. The patient reports still significant pain in the low back on the left side into the left lower extremity, posterior gluteus, posterior thigh, lateral thigh and posterior calf. The patient reports it is becoming more noticeable with time and he has a spinal cord stimulator tax compliance representative here to readjust it today as well. The patient rates his pain as a 10 on a scale of 10 at its worst over the past week, 10 on average, 7 at its least and is a 10 today. The patient reports it is aching, dull in the low back on the left side near the spinal cord stimulator battery generator. The patient reports no new motor or sensory deficits, no new changes, no weakness, no bowel or bladder incontinence or other complaints. PHYSICAL EXAMINATION: VITAL SIGNS: The patient's blood pressure is 92/40, pulse 43, respirations 18, temperature 98.2 degrees Fahrenheit, height is 5 feet 7 inches and weight is 170 pounds. GENERAL: The patient is awake, alert, oriented, appropriate, very pleasant demeanor. HEENT: Shows normocephalic, atraumatic. Extraocular movements are intact and symmetrical. Oral cavity shows mucous membranes moist and pink. Dentition is intact. NECK: Shows anterior throat supple without palpable lymphadenopathy noted. Swallow reflex symmetrical. CHEST: Shows normal on inspection. Breath sounds are clear without rales, rhonchi or wheezes auscultated. HEART: Shows S1, S2 clear. No murmurs auscultated. ABDOMEN: Soft, obese, nontender, nondistended. BACK: Shows spine grossly in the midline. Normal appearing thoracic kyphosis and minor flattening of lumbar lordotic curvature. Well-healed surgical scarring noted. Easily palpable spinal cord stimulator generator in the left low lumbar paraspinous musculature, which is mobile, but nontender itself, with palpation of the paraspinous muscles shows a very firm rope-like musculature in the lower thoracic paraspinous musculature on the left, but not the right consistent with trigger point areas of musculature as in the bilateral lumbar paraspinous musculature and into the left gluteus musculature just inferior to the implanted stimulator battery generator as well as into the superior medial gluteus just inferior to this, also lumbar paraspinous musculature is very firm, very tender bilaterally. In the middle and lower distribution of paraspinous muscles, very firm rope-like musculature consistent with trigger point areas of muscle. EXTREMITIES: The patient's lower extremities show deep tendon reflexes at 1+ in the patella and tendo-calcaneus tendons. Motor exam is strong with 5/5 dorsiflexion, extension, quadriceps and hamstring flexion symmetrical. Peripheral pulses are 1+ posterior tibia. No peripheral edema is noted bilaterally. Options were discussed with the patient. The patient's old chart was reviewed as his current medication regimen updated. Current review of systems updated today as well. We will proceed with trigger point injections of the identified musculature in the thoracic, lumbar paraspinous musculature and the left gluteus. Risks were discussed including but not limited to bleeding, infection, possibility of intravascular injection sequelae, spread of local anesthetic and numbness, side effects of steroid medication and poor results regarding pain control. The patient understands and wished to proceed. The patient will return to clinic in approximately 4 weeks for followup. He was counseled on return appointment, activity level and side effects to be aware of. DIAGNOSIS: Myofascial pain. PROCEDURE: Trigger point injection, left thoracic paraspinous musculature, bilateral lumbar paraspinous musculature and left gluteus musculature under sterile prep and drape using local anesthetic. MEDICATION INJECTED: A total of 40 mg Depo-Medrol plus a total of 8 mL of 0.5% bupivacaine after negative aspiration at each injection site. CONDITION AT DISCHARGE: Stable. The patient tolerated the procedure well, had no complications. ARBEN BUNCH MD DR: DOLLY/lauren JOB#: [id number] / [id number]
== END ==
LOC: PNCL 12:58
PROVIDERS: ATTEND Anesthesiology
DX: M79.18 Myalgia, other site (principal); M47.816 Spondylosis without myelopathy or radiculopathy, lumbar region; M96.1 Postlaminectomy syndrome, not elsewhere classified
CPT/HCPCS: 20553; J1030; J3490

== ENCOUNTER → 2020-05-30 | Outpatient (CLI) | payer MEDICARE, BC ==
[2020-03-20 14:36] VITALS: BP 135/62
[~2020-05-30] MED LIST changes: +AMLO-187 PO; -AMLO10TA8 PO; -ASPI-612 PO; +ASPI-886 PO; +BUPIVACAINE MPF 0.25% 10 ML VIAL. ONE; -BUPIVACAINE MPF 0.5% 30 ML VIAL. ONE; +METH-562 PO; -METH750T2 PO; -NABU500T PO; +NABU500T11 PO; +PRED-220 PO; +PRED20TA PO
--- NOTE | 2020-05-30 11:29 | PDOC ---
Progress Note - Pain Clinic Date of Service: DOS: DATE: 05/30/20 TIME: 11:21 Diagnosis: Dx: Lumbar radiculopathy with lumbar spondylosis and lumbar postlaminectomy syndrome Myofascial pain History or Present Illness: HPI: 85-year-old male returns follow-up status post spinal cord stimulator placement and trigger point injections most recently seen 08/08/2019. Patient ports he did very well after the injections with pain returning now over the past month or so in the low back and left lower extremity posterior gluteus and thigh especially in the low back itself in the mid back to the low back on the left side only and just above and below the area of the stimulator generator placement as well as into the gluteus laterally on the left side into the superior lateral aspect of the hamstring muscles on the left. Patient reports is worse with walking and standing change positions gently better with sitting or laying down does not awaken her from sleep at night patient reports is a 9 on scale 10 is worse over the past week 7 on average 5 its least is a 5 today. Describes pain as aching and stabbing and shooting and tight in the left low back and hip and thigh. Patient reports no loss of motor function with significant difficulty and pain with walking standing specially changing positions standing up from a seated position. Reports no motor or sensory deficits no bowel or bladder incontinence. Patient ports his stimulator is working well and is recently had reprogrammed with the [facility] representatives. Physical Exam: VS: Blood pressure is 114/59 pulse 50 respirations 18 temperature 98.1 F height is 5 feet 7 inches weight is 173 pounds PE: PHYSICAL EXAMINATION: GENERAL: The patient is awake, alert, oriented, appropriate, very pleasant demeanor HEENT: Shows normocephalic, atraumatic. Extraocular movements are intact and symmetrical. Oral cavity: Mucous membranes moist and pink. NECK: Shows anterior throat supple without palpable lymphadenopathy noted. Swallow reflex symmetrical. CHEST: Shows normal on inspection. Breath sounds are clear bilaterally, no rales or rhonchi. HEART: Shows S1, S2 clear. No murmurs are auscultated. ABDOMEN: Soft, nontender, nondistended, obese. No palpable organomegaly is noted. BACK: Shows spine grossly in the midline. Normal-appearing cervical lordotic curvature. There is slightly increased thoracic kyphosis, some minor flattening of the lumbar lordotic curvature. Lumbar paraspinous muscles show symmetrical on inspection, on palpation shows some moderate tenderness diffusely throughout the upper, middle and lower distribution of the paraspinous muscles on the left with significant firm ropelike musculature consistent with areas of trigger point musculature in the thoracic paraspinous posterior lumbar paraspinous muscles are only on the left above and below the patient's well-healed surgical scar and easily palpable left-sided stimulator generator. Patient shows significant tenderness in the lateral gluteus as well as in the superior lateral aspect of the hip extensors, but without radiation of pain. The patient has good rotational motion of the lumbar spine, both laterally as well as extension and flexion without significant difficulty. No tenderness over the spinous processes, sacrum or sacroiliac regions. EXTREMITIES: Lower extremities show deep tendon reflexes 1+ in the patellar and tendo calcaneus tendons. Motor exam is 5 on a scale of 5 with right dorsiflexion, extension, quadriceps and hamstring flexion and 5/5 on the left. Peripheral pulses are 1+ posterior tibial. No peripheral edema is noted bilaterally. Lower extremities are warm and dry to touch, equal in color and appearance. SKIN: Shows warm and dry, good turgor. No edema. No sores, rashes or bruising throughout. Procedure: Procedure: Options were discussed with the patient. Patient's old chart was reviewed his his current medication regimen updated current review of systems updated today as well. We will proceed with trigger point injections of the identified musculature in the left thoracic paraspinous muscles or left lumbar paraspinous posterior and left gluteus musculature. Risks discussed including but not limited to bleeding infection possibility of intravascular injection sequelae spread to local anesthetic and numbness side effects steroid medication exposure fluoroscopy and portals regarding pain control. Patient understands wished to proceed. Patient return to clinic in approximately 3 weeks for follow-up was counseled as to return appointment activity level and side effects to be aware of. Medication Injected: Med Injected: Under sterile prep and drape patient in the right lateral decubitus position patient's mid back low back and left posterior gluteus and thigh were sterilely prepped and draped in usual fashion and trigger point areas of musculature were identified in the thoracic paraspinous posterior lumbar paraspinous posterior gluteus musculature and injected using a 25-gauge needle 1/2 inch with 1 cc of injectate at each trigger point after negative aspiration. Total of 10 cc 0.25% bupivacaine and total of 40 mg Depo-Medrol. Patient tolerated the procedure well and had no complications. Condition at Discharge: Condition at Discharge: Condition at discharge stable, patient tolerated the procedure well and had no complications. ARBEN BUNCH MD May 30, 2020 11:28
== END | disposition home or self-care (01) ==
LOC: PNCL 10:22
PROVIDERS: ATTEND Anesthesiology
DX: M47.26 Other spondylosis with radiculopathy, lumbar region (principal); M96.1 Postlaminectomy syndrome, not elsewhere classified; M79.10 Myalgia, unspecified site; I11.0 Hypertensive heart disease with heart failure; I50.9 Heart failure, unspecified; E78.00 Pure hypercholesterolemia, unspecified; I25.10 Atherosclerotic heart disease of native coronary artery without angina pectoris; J44.9 Chronic obstructive pulmonary disease, unspecified; M19.90 Unspecified osteoarthritis, unspecified site; M10.9 Gout, unspecified; G47.30 Sleep apnea, unspecified; M79.18 Myalgia, other site; Z87.891 Personal history of nicotine dependence; Z79.82 Long term (current) use of aspirin; Z79.899 Other long term (current) drug therapy; Z98.890 Other specified postprocedural states; Z82.49 Family history of ischemic heart disease and other diseases of the circulatory system; Z83.3 Family history of diabetes mellitus; Z80.3 Family history of malignant neoplasm of breast
CPT/HCPCS: 20552; J1030; J3490; 20553

== ENCOUNTER → 2020-08-12 | Outpatient (CLI) | payer MEDICARE, BC ==
[2020-03-20 14:36] VITALS: BP 135/62
[~2020-08-12] MED LIST changes: -NABU500T11 PO; +NABU500T7 PO
--- NOTE | 2020-08-12 12:29 | PDOC ---
Progress Note - Pain Clinic Date of Service: DOS: DATE: 08/12/20 TIME: 12:24 Diagnosis: Dx: Lumbar radiculopathy with lumbar spondylosis and lumbar postlaminectomy syndrome Myofascial pain History or Present Illness: HPI: 85-year-old male returns to follow-up status post bladder stimulator placement and trigger point injections most recently seen May 30 2020. Patient reports he did very well with increased pain after the injections by about 80%. Patient reports the pain is increasing now in the low back but also traveling into his left lower extremity posterior gluteus posterior thigh posterior calf on the left leg. Patient has increased pain with walking standing changing positions and admitted can awaken him from sleep at night as well on the left side in the low back. Patient reports pain radiates up into the mid back as well especially when he is turning and twisting or bending or standing. Patient describes as aching sometimes sharp sometimes dull alternating, in the mid and low back left lower extremity. Patient describes the pain is 8 on scale 10 is worst 8 on average 8 its least is an 8 today. Patient reports no new motor or sensory deficits no new bowel or bladder incontinence. Patient has been keeping his stimulator charged and charges it daily. Physical Exam: VS: Blood pressure 107/48 pulse 48 respirations 17 temperature 97.5 F height is 5 foot 7 inches weight is 182 pounds PE: PHYSICAL EXAMINATION: GENERAL: The patient is awake, alert, oriented, appropriate, very pleasant demeanor HEENT: Shows normocephalic, atraumatic. Extraocular movements are intact and symmetrical. Oral cavity: Mucous membranes moist and pink. NECK: Shows anterior throat supple without palpable lymphadenopathy noted. Sw allow reflex symmetrical. CHEST: Shows normal on inspection. Breath sounds are clear bilaterally, distant but no rales or rhonchi. HEART: Shows S1, S2 clear. No murmurs auscultated. ABDOMEN: Soft, nontender, nondistended, obese with well-healed surgical scarring. No palpable organomegaly is noted. No rebound or guarding demonstrated. BACK: Shows spine grossly in the midline. Normal-appearing cervical lordotic curvature. There is slightly increased thoracic kyphosis, some minor flattening of the lumbar lordotic curvature. Well-healed surgical scarring is noted. Patient has easily palpable spinal cord stimulator generator in the left paraspinous region. Lumbar paraspinous muscles show symmetrical on inspection, on palpation shows some moderate tenderness diffusely throughout the upper, middle and lower distribution of the paraspinous muscles bilaterally and also into the lower thoracic paraspinous musculature, firm and tender, with very firm ropelike musculature in the lower thoracic as well as the lumbar paraspinous muscles are near the spinal cord stimulator generator, without radiation of pain. No tenderness over the spinous processes, sacrum or sacroiliac regions. EXTREMITIES: Lower extremities show deep tendon reflexes 1+ in the patellar and tendo calcaneus tendons. Motor exam is 5 on a scale of 5 with right dorsiflexion, extension, quadriceps and hamstring flexion and 5/5 on the left. Peripheral pulses are 1+ posterior tibial. No peripheral edema is noted bilaterally. Lower extremities are warm and dry to touch, equal in color and appearance. SKIN: Shows warm and dry, good turgor. No edema. No sores, rashes or bruising throughout. Procedure: Procedure: Options were discussed with the patient. Patient will chart reviews his current medication regimen updated current review of systems updated today as well. We will proceed with trigger point injections of the aforementioned musculature in the thoracic paraspinous posture as well as the lumbar paraspinous musculature and the left gluteus musculature. Risks discussed including but not limited to bleeding, infection, spread of local anesthetic and numbness, side effects steroid medication and poor results regarding pain control. Patient understands wished to proceed. Patient return to clinic in approximately 4 weeks for follow-up. Patient also will meet with spinal cord stimulator rep from [facility] for reprogramming today. Medication Injected: Med Injected: Under sterile prep and drape patient sitting position patient's thoracic and lumbar spine and left gluteus was identified and sterilely prepped in usual fashion. Trigger point identified in the thoracic paraspinous musculature on the left lumbar paraspinous posture on the left as well as the left gluteus and injected using 25-gauge 1/2 inch needle after negative aspiration each injection site total of 8 cc 0.25% Vivacaine and total of 40 mg Depo-Medrol. Patient tolerated procedure well and had no complications. Condition at Discharge: Condition at Discharge: Condition at discharge stable, placed tolerated procedure well and had no complications. ARBEN BUNCH MD Aug 12, 2020 12:29
--- NOTE | 2020-08-12 12:30 | PDOC4 ---
PROCEDURE Procedure Patient was consented for trigger point injections right-sided thoracic para spinous posterior right-sided lumbar paraspinous muscle right-sided gluteus musculature. Risk were discussed including but not limited to bleeding infection possibility of intravascular injection sequelae spread of local anesthetic numbness side effects steroid medication and poor results regarding pain control. Patient understands wished to proceed. Under sterile prep and drape patient sitting position patient's thoracic and lumbar spine and left gluteus was identified and sterilely prepped in usual [facility] ion. Trigger point identified in the thoracic paraspinous musculature on the left lumbar paraspinous posture on the left as well as the left gluteus and injected using 25-gauge 1/2 inch needle after negative aspiration each injection site total of 8 cc 0.25% Vivacaine and total of 40 mg Depo-Medrol. Patient tolerated procedure well and had no complications. ARBEN BUNCH MD Aug 12, 2020 12:30
== END | disposition home or self-care (01) ==
LOC: PNCL 11:25
PROVIDERS: ATTEND Anesthesiology
DX: M47.26 Other spondylosis with radiculopathy, lumbar region (principal); M96.1 Postlaminectomy syndrome, not elsewhere classified; M79.18 Myalgia, other site; I11.0 Hypertensive heart disease with heart failure; I50.9 Heart failure, unspecified; E78.00 Pure hypercholesterolemia, unspecified; E03.9 Hypothyroidism, unspecified; M19.90 Unspecified osteoarthritis, unspecified site; J44.9 Chronic obstructive pulmonary disease, unspecified; I25.10 Atherosclerotic heart disease of native coronary artery without angina pectoris; M10.9 Gout, unspecified; Z87.891 Personal history of nicotine dependence; Z79.82 Long term (current) use of aspirin; Z79.899 Other long term (current) drug therapy; Z98.890 Other specified postprocedural states; Z82.49 Family history of ischemic heart disease and other diseases of the circulatory system; Z83.3 Family history of diabetes mellitus
CPT/HCPCS: 20553; J1030; J3490; 77002

== ENCOUNTER → 2020-09-30 | Outpatient (CLI) | payer MEDICARE, BC ==
[2020-03-20 14:36] VITALS: BP 135/62
[~2020-09-30] MED LIST changes: +NABU500T11 PO; -NABU500T7 PO
--- NOTE | 2020-09-30 11:01 | PDOC ---
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 Patient reports he did very well with the trigger point injections with only lasting about 3 to 4 weeks. Patient reports during that time however has been 80% improvement in the low back pain. Patient reports now getting some pain to the left lower extremity posterior gluteus posterior lateral thigh and lateral anterior thigh patient reports it is worse in the morning but the back pain is more significant and again returning after about 3 weeks from his injections patient reports pain to 8 on scale 10 is worse with the past week 8 on average 5 its least is a 5 today patient reported aching on and off in intensity worse with activity walking especially worse in the morning. Patient reports is better with laying down does not generally awaken him from sleep at night. Patient reports no new motor or sensory deficits he did have stimulator reprogrammed after his last visit with some improvement in pain control but still pain in the back and left leg as noted. Physical Exam: VS: Blood pressure is 119/51 pulse 46 respirations 20 temperature 97.3 F height is 5 feet 7 inches weight is 187 pounds PE: PHYSICAL EXAMINATION: GENERAL: The patient is awake, alert, oriented, appropriate, very pleasant demeanor HEENT: Shows normocephalic, atraumatic. Extraocular movements are intact and symmetrical. NECK: Shows anterior throat supple without palpable lymphadenopathy noted. Swallow reflex symmetrical. CHEST: Shows normal on inspection. Breath sounds are clear bilaterally, distant but no rales or rhonchi. HEART: Shows S1, S2 clear. No murmurs auscultated. ABDOMEN: Soft, nontender, nondistended, obese. No palpable organomegaly is noted. No rebound or guarding demonstrated. BACK: Shows spine grossly in the midline. Normal-appearing cervical lordotic curvature. There is slightly increased thoracic kyphosis, some flattening of the lumbar lordotic curvature. Well-healed surgical scarring is noted as well as easily palpable spinal cord stimulator generator left of midline lumbar distribution. Lumbar paraspinous muscles show symmetrical on inspection, on palpation shows some moderate tenderness diffusely throughout the upper, middle and lower distribution of the paraspinous muscles with very firm ropelike musculature in the inferior aspect of the thoracic paraspinous muscles on the left very firm consistent with trigger point areas, also of the lumbar pa raspinous posterior on the left superior middle and inferior aspect very firm ropelike musculature consistent with trigger point areas of musculature also into the left superior gluteus with very firm ropelike musculature as well without radiation. The patient has good rotational motion of the lumbar spine, both laterally as well as extension and flexion without significant difficulty. No tenderness over the spinous processes, sacrum or sacroiliac regions. EXTREMITIES: Lower extremities show deep tendon reflexes 1+ in the patellar and tendo calcaneus tendons. Motor exam is 5 on a scale of 5 with right dorsiflexion, extension, quadriceps and hamstring flexion and 5/5 on the left. Peripheral pulses are 1+ posterior tibial. No peripheral edema is noted sundar aterally. Lower extremities are warm and dry to touch, equal in color and appearance. SKIN: Shows warm and dry, good turgor. No edema. No sores, rashes or bruising throughout. Procedure: Procedure: Options were discussed with the patient. Patient's old chart was reviewed his current medication regimen updated current review of systems updated today as well. We will proceed with trigger point injections of the identified musculature in the thoracic paraspinous muscular lumbar paraspinous posterior and gluteus musculature. Risks are discussed including but not limited to bleeding infection possibility of intravascular injection sequelae spread local anesthetic numbness side effects steroid medication portals regarding pain control. Patient understands wished to proceed. Patient will return to clinic in approximately 3 weeks for follow-up, was counseled as to return appointment activity level and side effects to be aware of. Medication Injected: Med Injected: Patient sitting position under sterile prep and drape trigger point muscles were identified in the left thoracic paraspinous posterior left lumbar paraspinous posterior and left gluteus musculature injected with 25-gauge needle after n egative aspiration each injection site total of 10 cc of 0.25% Vivacaine and total of 40 mg Depo-Medrol. Patient tolerated procedure well and had no complications. Condition at Discharge: Condition at Discharge: Condition at discharge stable, patient already procedure well and had no complications. ARBEN BUNCH MD September 30, 2020 11:01
--- NOTE | 2020-09-30 11:02 | PDOC4 ---
PROCEDURE Procedure Patient was consented for trigger point injections. Risk were discussed inc luding but not limited to bleeding infection possibility of intravascular injection sequelae spread local anesthetic numbness side effects steroid medication, and portals rating pain control. Patient understands wished to proceed. Patient sitting position under sterile prep and drape trigger point muscles were identified in the left thoracic paraspinous posterior left lumbar paraspinous posterior and left gluteus musculature injected with 25-gauge needle after negative aspiration each injection site total of 10 cc of 0.25% Vivacaine and total of 40 mg Depo-Medrol. Patient tolerated procedure well and had no complications. ARBEN BUNCH MD September 30, 2020 11:02
== END | disposition home or self-care (01) ==
LOC: PNCL 10:05
PROVIDERS: ATTEND Anesthesiology
DX: M96.1 Postlaminectomy syndrome, not elsewhere classified (principal); M47.26 Other spondylosis with radiculopathy, lumbar region; I25.10 Atherosclerotic heart disease of native coronary artery without angina pectoris; I11.0 Hypertensive heart disease with heart failure; I50.9 Heart failure, unspecified; E78.00 Pure hypercholesterolemia, unspecified; G47.30 Sleep apnea, unspecified; E66.9 Obesity, unspecified; M19.90 Unspecified osteoarthritis, unspecified site; M10.9 Gout, unspecified; J44.9 Chronic obstructive pulmonary disease, unspecified; Z87.891 Personal history of nicotine dependence; Z79.82 Long term (current) use of aspirin; Z79.899 Other long term (current) drug therapy; Z98.890 Other specified postprocedural states; Z88.8 Allergy status to other drugs, medicaments and biological substances
CPT/HCPCS: 20553; J1030; J3490

== ENCOUNTER → 2020-10-21 | Outpatient (CLI) | payer MEDICARE, BC ==
[2020-03-20 14:36] VITALS: BP 135/62
[~2020-10-21] MED LIST changes: -BUPIVACAINE MPF 0.25% 10 ML VIAL. ONE; +BUPIVACAINE MPF 0.25% 30 ML VIAL. ONE
--- NOTE | 2020-10-21 13:49 | PDOC ---
Progress Note - Pain Clinic Date of Service: DOS: DATE: 10/21/20 TIME: 13:44 Diagnosis: Dx: Lumbar radiculopathy with lumbar spondylosis and lumbar postlaminectomy syndrome Myofascial pain History or Present Illness: HPI: 85-year-old male returns for follow-up status post trigger point injections last seen the 2020. Patient reports he did very well about 80% improvement but only lasting about 3 weeks or so. Patient reports that the pain returned after that time during the time but is feeling better he is increase his activity is walking with greater ease and distance doing household activities greater ease and traveling with greater ease patient reports that the pain returns in the low back left side near the spinal cord stimulator generator pocket. Patient reports occasional radiation to the left lower extremity but he is having that addressed with 3 calibration of the spinal cord stimulator later today. Patient reports his pain is an 8 on scale 10 is worst average in 5 its least is an 8 today patient was aching and dull in the low back itself with occasional radiation to the left lower extremity but only occasionally. Patient reports the radiation was gone after the trigger point injections on September 30. Physical Exam: VS: Blood pressure is 122/57 pulse 56 respirations 16 temperature 98.0 F height is 5 feet 7 inches weight 184 pounds PE: PHYSICAL EXAMINATION: GENERAL: The patient is awake, alert, oriented, appropriate, very pleasant in demeanor. HEENT: Shows normocephalic, atraumatic. Extraocular movements are intact and symmetrical. Oral cavity: Mucous membranes moist and pink. Dentition is intact. NECK: Shows anterior throat supple without palpable lymphadenopathy noted. CHEST: Shows normal on inspection. Breath sounds are clear bilaterally. HEART: Shows S1, S2 clear. No murmurs auscultated. ABDOMEN: Soft, nontender, nondistended. No palpable organomegaly is noted. No rebound or guarding demonstrated. BACK: Shows spine grossly in the midline. Normal-appearing cervical lordotic curvature. There is slightly increased thoracic kyphosis, some minor flattening of the lumbar lordotic curvature. Lumbar paraspinous muscles show symmetrical on inspection, on palpation shows some moderate tenderness diffusely throughout the upper, middle and lower distribution of the paraspinous muscles with very firm ropelike musculature consistent with trigger point areas of musculature in the lower thoracic and lumbar paraspinous musculature on the left side only and near the spinal cord stimulator generator pocket above medially and laterally as well as inferiorly to the pocket itself with very firm ropelike musculature very tender with palpation but without specific radiation. The patient has good rotational motion of the lumbar spine, both laterally as well as extension and flexion without significant difficulty. No tenderness over the spinous pro cesses, sacrum or sacroiliac regions. EXTREMITIES: Lower extremities show deep tendon reflexes 1 in the patellar and tendo calcaneus tendons. Motor exam is 5 on a scale of 5 with right dorsiflexion, extension, quadriceps and hamstring flexion and 5/5 on the left. Peripheral pulses are 1+ posterior tibial. No peripheral edema is noted bilaterally. Lower extremities are warm and dry. SKIN: Shows warm and dry, good turgor. No edema. No sores, rashes or bruising throughout. Procedure: Procedure: Options were discussed with the patient. Patient chart was reviewed his current medication regimen updated current review of systems updated today as well. We will proceed with trigger point injections of the identified musculature in the left thoracic paraspinous musculature left lumbar paraspinous posterior and left gluteus musculature. Risk were discussed including but not limited to bleeding infection possibility of intravascular injection and sequelae spread of local anesthetic numbness side effects of steroid medication and portal scarring pain control. Patient understands wished to proceed. Patient will return to clinic in approximate 4 weeks for follow-up, was counseled as to return appointment, activity level, and side effects to be aware of. Medication Injected: Med Injected: Patient sitting position under sterile prep and drape patient's left thoracic paraspinous region, left lumbar paraspinous region and left gluteus was sterilely prepped and draped. Identifying trigger point areas of musculature were then injected using 25-gauge needle for a total of 9 cc 0.25% bupivacaine and total of 40 mg Depo-Medrol after negative aspiration each injection site. Patient tolerated procedure well and had no complications. Condition at Discharge: Condition at Discharge: Condition at discharge stable, patient already procedure well and had no complications. ARBEN BUNCH MD Oct 21, 2020 13:49
--- NOTE | 2020-10-21 13:50 | PDOC4 ---
PROCEDURE Procedure Patient was consented for trigger point injections. Risk were discussed inc luding but not limited to bleeding infection possibility of intravascular injection and sequelae spread of local anesthetic and numbness, side effects steroid medication and poor results regarding pain control. Patient understands wished to proceed. Patient sitting position under sterile prep and drape patient's left thoracic paraspinous region, left lumbar paraspinous region and left gluteus was sterilely prepped and draped. Identifying trigger point areas of musculature were then injected using 25-gauge needle for a total of 9 cc 0.25% bupivacaine and total of 40 mg Depo-Medrol after negative aspiration each injection site. Patient tolerated procedure well and had no complications. ARBEN BUNCH MD Oct 21, 2020 13:50
== END | disposition home or self-care (01) ==
LOC: PNCL 13:01
PROVIDERS: ATTEND Anesthesiology
DX: M47.26 Other spondylosis with radiculopathy, lumbar region (principal); M96.1 Postlaminectomy syndrome, not elsewhere classified; M79.18 Myalgia, other site; I11.0 Hypertensive heart disease with heart failure; I50.9 Heart failure, unspecified; I25.10 Atherosclerotic heart disease of native coronary artery without angina pectoris; I10 Essential (primary) hypertension; E78.00 Pure hypercholesterolemia, unspecified; J44.9 Chronic obstructive pulmonary disease, unspecified; G47.30 Sleep apnea, unspecified; M19.90 Unspecified osteoarthritis, unspecified site; M10.9 Gout, unspecified; Z79.82 Long term (current) use of aspirin; Z79.899 Other long term (current) drug therapy; Z87.891 Personal history of nicotine dependence; Z98.890 Other specified postprocedural states
CPT/HCPCS: 20553; J1030; J3490

== ENCOUNTER → 2021-01-10 | Outpatient (CLI) | payer MEDICARE, BC ==
[2020-03-20 14:36] VITALS: BP 135/62
[~2021-01-10] MED LIST changes: -BUPIVACAINE MPF 0.25% 30 ML VIAL. ONE; +IOHEXOL 180 MG/ML 10 ML VIAL. ONE; -methylPREDNISolone ACETATE 40 MG/ML VIAL. ONE; +methylPREDNISolone ACETATE 80 MG/ML VIAL. ONE
--- NOTE | 2021-01-10 11:13 | PDOC ---
Progress Note - Pain Clinic Date of Service: DOS: DATE: 01/10/21 TIME: 11:09 Diagnosis: Dx: Lumbar radiculopathy with lumbar postlaminectomy syndrome lumbar spondylosis with spinal cord stimulator Myofascial pain History or Present Illness: HPI: 85-year-old male returns in follow-up status post trigger point injections to left thoracic and lumbar paraspinous muscles as well as left gluteus which he did well with but only for about 3 weeks patient reports pain returned and now has new pain that is radiating to the left lower extremity much more significant in the left posterior gluteus posterior thigh into the calf at times mostly in the hip and thigh however patient reports that it is getting worse with walking and standing rated as 8 on scale 10 is worse over the past week 8 on average 5 its least described as dull cramping stabbing shooting and severe with radiating pain in the left leg is worse with walking standing better with sitting or laying down. Patient reports is waking from sleep at least 2-3 times a night after the trigger point injections wore off the pain began to get much worse and is different now as it is in his leg more than just in the back and the hip patient reports no bowel or bladder incontinence no loss of motor function. Spinal cord stimulator will be reprogrammed today as scheduled as well. Physical Exam: VS: Blood pressure is 100/54 pulse 50 respirations 18 temperature 90.0 F is 5 foot 7 inches weight is 185 pounds PE: PHYSICAL EXAMINATION: GENERAL: The patient is awake, alert, oriented, appropriate, very pleasant demeanor HEENT: Shows normocephalic, atraumatic. Extraocular movements are intact and symmetrical. Oral cavity: Mucous membranes moist and pink. NECK: Shows anterior throat supple without palpable lymphadenopathy noted. Swallow reflex symmetrical. CHEST: Shows normal on inspection. Breath sounds are clear bilaterally. HEART: Shows S1, S2 clear. No murmurs auscultated. ABDOMEN: Soft, nontender, nondistended, obese. No palpable organomegaly is noted. BACK: Shows spine grossly in the midline. Normal-appearing cervical lordotic curvature. There is slightly increased thoracic kyphosis, some minor flattening of the lumbar lordotic curvature. Well-healed surgical scarring is noted and easily palpable stimulator generator in the left paraspinous distribution. Lumbar paraspinous muscles show symmetrical on inspection, on palpation shows some moderate tenderness diffusely throughout the upper, middle and lower distribution of the paraspinous muscles without specific trigger points, without radiation of pain. The patient has good rotational motion of the lumbar spine, both laterally as well as extension and flexion without significant difficulty. EXTREMITIES: Lower extremities show deep tendon reflexes 1+ in the patellar and tendo calcaneus tendons. Motor exam is 5 on a scale of 5 with right dorsiflexion, extension, quadriceps and hamstring flexion and 5/5 on the left. Peripheral pulses are 1+ posterior tibial. No peripheral edema is noted bilaterally. Lower extremities are warm and dry. SKIN: Shows warm and dry, good turgor. No edema. No sores, rashes or bruising throughout. Procedure: Procedure: Options were discussed with the patient. Patient's old chart was reviewed his current medication regimen updated current review of systems updated today as well. Spinal cord stimulator reprogramming will be carried out as scheduled with [employer] access services representative. Also will proceed with lumbar epidural steroid injection today with fluoroscopic guidance. Risks were discussed including but not limited to: Bleeding, infection, possibility of epidural hematoma and subsequent neurological compromise, dural puncture, headaches, spinal cord and/or nerve damage, side effects of steroid medication, and poor results regarding pain control. Patient understands and wished to proceed. Patient wi ll return to the clinic in approximate 2 weeks for follow-up, was counseled as to return appointment, activity level, and side effects to be aware of. Medication Injected: Med Injected: Procedure is lumbar epidural steroid injection under local anesthetic using sterile prep and drape at the L5-S1 level using C-arm fluoroscopic guidance in both AP and lateral views medications injected is 120 mg Depo-Medrol +10mL preservative-free normal saline and 2 mL contrast- condition at discharge is stable patient tolerated procedure well had no complications. Condition at Discharge: Condition at Discharge: Condition at discharge stable, patient tolerated the procedure well and had no complications. ARBEN BUNCH MD Jan 10, 2021 11:13
--- NOTE | 2021-01-10 11:14 | PDOC4 ---
Procedure Note: ICD 10 Code: ICD 10 Code: M54.16 M 96.1 M 47.816 Procedure Note: Patient was consented for lumbar epidural steroid injection with fluoroscopic guidance. Risks were discussed including but not limited to: Bleeding, infection, possibility of epidural hematoma and subsequent neurological compromise, dural puncture, headaches, spinal cord and/or nerve damage, side effects of steroid medication, and poor results regarding pain control. Patient understands and wished to proceed. Procedure is lumbar epidural steroid injection under local anesthetic using st erile prep and drape at the L5-S1 level using C-arm fluoroscopic guidance in both AP and lateral views medications injected is 120 mg Depo-Medrol +10mL preservative-free normal saline and 2 mL contrast- condition at discharge is stable patient tolerated procedure well had no complications. ARBEN BUNCH MD Jan 10, 2021 11:14
== END | disposition home or self-care (01) ==
LOC: PNCL 09:56
PROVIDERS: ATTEND Anesthesiology
DX: M47.26 Other spondylosis with radiculopathy, lumbar region (principal); M96.1 Postlaminectomy syndrome, not elsewhere classified; M79.18 Myalgia, other site; M54.5 Low back pain; I11.0 Hypertensive heart disease with heart failure; I50.9 Heart failure, unspecified; I25.10 Atherosclerotic heart disease of native coronary artery without angina pectoris; J44.9 Chronic obstructive pulmonary disease, unspecified; M19.90 Unspecified osteoarthritis, unspecified site; G47.30 Sleep apnea, unspecified; M10.9 Gout, unspecified; Z79.82 Long term (current) use of aspirin; Z87.891 Personal history of nicotine dependence; Z79.899 Other long term (current) drug therapy; Z98.890 Other specified postprocedural states
CPT/HCPCS: 62323; J1040; Q9965

== ENCOUNTER → 2021-01-24 | Outpatient (CLI) | payer MEDICARE, BC ==
[2020-03-20 14:36] VITALS: BP 135/62
[~2021-01-24] MED LIST changes: +ATOR40TA59 PO; +AZEL137S3 NS; +POTA-121 PO; -POTA20TA4 PO; +PREG150C PO; +TAMS0.4C97 PO
--- NOTE | 2021-01-24 13:21 | PDOC ---
Progress Note - Pain Clinic Date of Service: DOS: DATE: 01/24/21 TIME: 13:17 Diagnosis: Dx: Lumbar radiculopathy with lumbar spondylosis and lumbar postlaminectomy syndrome with spinal cord stimulator Myofascial pain History or Present Illness: HPI: 85-year-old male returns for follow-up status post lumbar epidural steroid injection x1 on January 10, 2021. Patient reports he did very well about 90% improvement for the first 2 weeks and the pain began to return in the low back and left lower extremity patient reports he is very pleased with his progress increase his activity with distance walking doing household activities work activities travel with greater ease and comfort and doing much better. Patient had his stimulator reprogrammed as well after his last visit reports he feels that this is made some difference as well still pain low back left lower extremity returning now but not to the level it was patient reports is better with sitting or laying down does not awaken from sleep at night worse with walking and standing patient reports aching and dull in the back shooting and sharp in the left lower extremity posteriorly patient rates as 8 on scale 10 is worst 8 on average 5 its least is a 6 today. She reports no bowel or bladder incontinence. Physical Exam: VS: Blood pressure is 113/55 pulse 54 respirations 18.1 F weight is 188 pounds PE: PHYSICAL EXAMINATION: GENERAL: The patient is awake, alert, oriented, appropriate, very pleasant in demeanor HEENT: Shows normocephalic, atraumatic. Extraocular movements are intact and symmetrical. Oral cavity: Mucous membranes moist and pink. Dentition is intact. NECK: Shows anterior throat supple without palpable lymphadenopathy noted. Swallow reflex symmetrical. CHEST: Shows normal on inspection. Breath sounds are clear bilaterally, no rales rhonchi or wheezes auscultated. HEART: Shows S1, S2 clear. No murmurs auscultated. ABDOMEN: Soft, nontender, nondistended, obese. No palpable organomegaly is noted. BACK: Shows spine grossly in the midline. Normal-appearing cervical lordotic curvature. There is increased thoracic kyphosis, some flattening of the lumbar lordotic curvature with well-healed surgical scarring noted, and easily palpable spinal cord stimulator generator. Lumbar paraspinous muscles show symmetrical on inspection, on palpation shows some moderate tenderness diffusely throughout the upper, middle and lower distribution of the paraspinous muscles without specific trigger points, without radiation of pain. The patient has good rotational motion of the lumbar spine, both laterally as well as extension and flexion without significant difficulty. No tenderness over the spinous processes, sacrum or sacroiliac regions. EXTREMITIES: Lower extremities show deep tendon reflexes 1 in the patellar and tendo calcaneus tendons. Motor exam is 5 on a scale of 5 with right dorsiflexion, extension, quadriceps and hamstring flexion and 5/5 on the left. Peripheral pulses are 1+ posterior tibial. No peripheral edema is noted bilaterally. Lower extremities are warm and dry. SKIN: Shows warm and dry, good turgor. No edema. No sores, rashes or bruising throughout. Procedure: Procedure: Options discussed with patient. Patient chart was reviewed his his current medication regimen updated current view of systems updated today as well. We will proceed with a lumbar epidural steroid injection stable fluoroscopic guidance. Risks were discussed including but not limited to: Bleeding, infection, possibility of epidural hematoma and subsequent neurological compromise, dural puncture, headaches, spinal cord and/or nerve damage, side effects of steroid medication, and poor results regarding pain control. Patient understands and wished to proceed. Patient return to clinic in approximate 2 weeks for follow-up, was counseled as return appointment, activity level, and side effects beware of. Medication Injected: Med Injected: Procedure is lumbar epidural steroid injection under local anesthetic using sterile prep and drape at the L5-S1 level using C-arm fluoroscopic guidance in both AP and lateral views medications injected is 120 mg Depo-Medrol +10mL preservative-free normal saline and 2 mL contrast- condition at discharge is stable patient tolerated procedure well had no complications. Condition at Discharge: Condition at Discharge: Condition at discharge stable, patient tolerated the procedure well and had no complications. ARBEN BUNCH MD Jan 24, 2021 13:21
--- NOTE | 2021-01-24 13:21 | PDOC4 ---
Procedure Note: ICD 10 Code: ICD 10 Code: M54.17 M96.1 M 47.816 Procedure Note: Patient was consented for lumbar epidural steroid injection with fluoroscopic guidance. Risks were discussed including but not limited to: Bleeding, infection, possibility of epidural hematoma and subsequent neurological compromise, dural puncture, headaches, spinal cord and/or nerve damage, side effects of steroid medication, and poor results regarding pain control. Patient understands and wished to proceed. Procedure is lumbar epidural steroid injection under local anesthetic using addison rile prep and drape at the L5-S1 level using C-arm fluoroscopic guidance in both AP and lateral views medications injected is 120 mg Depo-Medrol +10mL preservative-free normal saline and 2 mL contrast- condition at discharge is stable patient tolerated procedure well had no complications. ARBEN BUNCH MD Jan 24, 2021 13:21
== END | disposition home or self-care (01) ==
LOC: PNCL 11:54
PROVIDERS: ATTEND Anesthesiology
DX: M47.26 Other spondylosis with radiculopathy, lumbar region (principal); M54.17 Radiculopathy, lumbosacral region; M96.1 Postlaminectomy syndrome, not elsewhere classified; M79.18 Myalgia, other site; I11.0 Hypertensive heart disease with heart failure; I50.9 Heart failure, unspecified; E78.00 Pure hypercholesterolemia, unspecified; J44.9 Chronic obstructive pulmonary disease, unspecified; G47.30 Sleep apnea, unspecified; M19.90 Unspecified osteoarthritis, unspecified site; M10.9 Gout, unspecified; Z79.899 Other long term (current) drug therapy; Z79.82 Long term (current) use of aspirin; Z87.891 Personal history of nicotine dependence; Z98.890 Other specified postprocedural states; Z82.49 Family history of ischemic heart disease and other diseases of the circulatory system
CPT/HCPCS: 62323; J1040; Q9965

== ENCOUNTER → 2021-04-16 | Outpatient (CLI) | payer MEDICARE, BC ==
[2021-02-09 10:23] VITALS: BP 121/59
[~2021-04-16] MED LIST changes: +CYCL10TA19 PO; -CYCL10TA2 PO; +methylPREDNISolone ACETATE 40 MG/ML VIAL. ONE
--- NOTE | 2021-04-16 14:52 | PDOC ---
Progress Note - Pain Clinic Date of Service: DOS: DATE: 04/16/21 TIME: 14:47 Diagnosis: Dx: Lumbar radiculopathy with lumbar postlaminectomy syndrome and lumbar and lumbosacral spondylosis Myofascial pain History or Present Illness: HPI: 85-year-old male returns for follow-up post lumbar epidural steroid injection last seen January 24, 2021 also patient with spinal cord stimulator and has having a reprogramming today with his stimulator policy services representative as well. Patient reports he did very well after the last injection percent of provement for about 2 months now the pain is returning in the low back and left lower extremity posterior gluteus posterior thigh posterior calf to the knee patient reports more pain on the right side which is new for him this is usually just on the left patient reports his low back on the right side is hurting as well again hoping that the stimulator reprogramming today may decrease this as well. Patient rates his pain a 7 on scale 10 is worse over the past week 7 on average 5 its least is a 7 today. Patient reports it is better with sitting or laying down generally does not awaken him from sleep at night patient reports no bowel or bladder incontinence. Physical Exam: VS: Blood pressure is 105/49 pulse 58 respirations 18 temperature is 98.1 F is 5 feet 7 inches weight is 195 pounds PE: PHYSICAL EXAMINATION: GENERAL: The patient is awake, alert, oriented, appropriate, very pleasant in demeanor HEENT: Shows normocephalic, atraumatic. Extraocular movements are intact and symmetrical. NECK: Shows anterior throat supple without palpable lymphadenopathy noted. Swallow reflex symmetrical. CHEST: Shows normal on inspection. Breath sounds are clear bilaterally, coarse but no rales or rhonchi. HEART: Shows S1, S2 clear. No murmurs auscultated. ABDOMEN: Soft, nontender, nondistended, obese. No palpable organomegaly is n oted. BACK: Shows spine grossly in the midline. Normal-appearing cervical lordotic curvature. There is increased thoracic kyphosis, some flattening of the lumbar lordotic curvature with well-healed surgical scarring noted. Lumbar paraspinous muscles show symmetrical on inspection, on palpation shows some moderate tenderness diffusely throughout the upper, middle and lower distribution of the paraspinous muscles without specific trigger points, without radiation of pain. The patient has good rotational motion of the lumbar spine, both laterally as well as extension and flexion without significant difficulty. Easily palpable spinal cord stimulator in the left low lumbar distribution with well-healed surgical scarring. No tenderness over the spinous processes, sacrum or sacroiliac regions. EXTREMITIES: Lower extremities show deep tendon reflexes are 1+ to in the patellar and tendo calcaneus tendons. Motor exam is 5 on a scale of 5 with right dorsiflexion, extension, quadriceps and hamstring flexion and 5/5 on the left. Peripheral pulses are 1+ posterior tibial. No peripheral edema is noted bilaterally. Lower extremities are warm and dry to touch, equal in color and appearance. SKIN: Shows warm and dry, good turgor. No edema. No sores, rashes or bruising throughout. Procedure: Procedure: Options were discussed with patient. Patient's old chart was reviewed as her current medication regimen updated current view of systems updated today as well. We will proceed with a lumbar epidural steroid injection today with fluoroscopic guidance. Risks were discussed including but not limited to: Bleeding, infection, possibility of epidural hematoma and subsequent neurological compromise, dural puncture, headaches, spinal cord and/or nerve damage, side effects of steroid medication, and poor results regarding pain control. Patient understands and wished to proceed. Patient return to clinic in approximately 4 weeks for follow-up, was counseled as to return appointment, typical, and side effects aware of. Medication Injected: Med Injected: Procedure is lumbar epidural steroid injection under local anesthetic using sterile prep and drape at the L5-S1 level using C-arm fluoroscopic guidance in both AP and lateral views medications injected is 120 mg Depo-Medrol +10mL preservative-free normal saline and 2 mL contrast- condition at discharge is stable patient tolerated procedure well had no complications. Condition at Discharge: Condition at Discharge: Condition at discharge stable, pain tolerated procedure well and had no complications. ARBEN BUNCH MD Apr 16, 2021 14:52
--- NOTE | 2021-04-16 14:53 | PDOC4 ---
Procedure Note: ICD 10 Code: ICD 10 Code: M54.17 M4 7.16 M4 7.817 M 96.1 Procedure Note: Patient was consented for lumbar epidural steroid injection with fluoroscopic guidance risks were discussed including but not limited to: Bleeding, infection, possibility of epidural hematoma and subsequent neurological compromise, dural puncture, headaches, spinal cord and/or nerve damage, side effects of steroid medication, and poor results regarding pain control. Patient understands and wished to proceed. Procedure is lumbar epidural steroid injection under local anesthetic using sterile prep and drape at the L5-S1 level using C-arm fluoroscopic guidance in both AP and lateral views medications injected is 120 mg Depo-Medrol +10mL preservative-free normal saline and 2 mL contrast- condition at discharge is stable patient tolerated procedure well had no complications. ARBEN BUNCH MD Apr 16, 2021 14:53
== END | disposition home or self-care (01) ==
LOC: PNCL 14:08
PROVIDERS: ATTEND Anesthesiology
DX: M47.27 Other spondylosis with radiculopathy, lumbosacral region (principal); M96.1 Postlaminectomy syndrome, not elsewhere classified; M79.18 Myalgia, other site; M47.26 Other spondylosis with radiculopathy, lumbar region; M51.16 Intervertebral disc disorders with radiculopathy, lumbar region; I11.0 Hypertensive heart disease with heart failure; I50.9 Heart failure, unspecified; E78.00 Pure hypercholesterolemia, unspecified; I25.10 Atherosclerotic heart disease of native coronary artery without angina pectoris; M19.90 Unspecified osteoarthritis, unspecified site; M10.9 Gout, unspecified; J44.9 Chronic obstructive pulmonary disease, unspecified; G47.30 Sleep apnea, unspecified; I73.9 Peripheral vascular disease, unspecified; Z87.891 Personal history of nicotine dependence; Z79.82 Long term (current) use of aspirin; Z79.899 Other long term (current) drug therapy; Z98.890 Other specified postprocedural states
CPT/HCPCS: 62323; J1030; J1040; Q9965

== ENCOUNTER → 2021-05-01 | Outpatient (CLI) | payer MEDICARE, BC ==
[2021-02-09 10:23] VITALS: BP 121/59
[~2021-05-01] MED LIST changes: +BUPIVACAINE MPF 0.25% 10 ML VIAL. ONE; -IOHEXOL 180 MG/ML 10 ML VIAL. ONE; -methylPREDNISolone ACETATE 80 MG/ML VIAL. ONE
--- NOTE | 2021-05-01 14:48 | PDOC ---
Progress Note - Pain Clinic Date of Service: DOS: DATE: 05/01/21 TIME: 14:43 Diagnosis: Dx: Lumbar radiculopathy with lumbar spondylosis and lumbar postlaminectomy syndrome Myofascial pain History or Present Illness: HPI: 86-year-old male returns status post lumbar epidural steroid injection x3. Patient reports he did very well about 90% improvement only for a few weeks patient reports pain is returning now in the low back itself it is only infrequently radiating to the left lower extremity patient reports most of his pain is stiff and tight in the low back and as well as the mid back patient reports also into the gluteus more the left than the right but present bilaterally patient rates as a 7 on scale 10 at all times average worst and least is a 7 today. Patient reports his stimulator still doing very well is keeping it charged and reports that it does decrease the pain fairly significantly by about 50% at least patient reports that the stiffness is worse with changing positions getting up from seated position is awakened from sleep at night about once a night but he can use repositioning it back to sleep patient reports is worse with walking standing sitting for prolonged periods and has not significantly radiating to the left lower extremity as it was prior to his last visit. Patient reports no bowel or bladder incontinence currently. Physical Exam: VS: Blood pressure is 109/52 pulse 60 respirations 18 temperature 98.9 F height 5 feet 7 inches weight 193 pounds PE: PHYSICAL EXAMINATION: GENERAL: The patient is awake, alert, oriented, appropriate, very pleasant in demeanor HEENT: Shows normocephalic, atraumatic. Extraocular movements are intact and symmetrical. NECK: Shows anterior throat supple without palpable lymphadenopathy noted. Swallow reflex symmetrical. CHEST: Shows normal on inspection. Breath sounds are clear bilaterally, no rales rhonchi. HEART: Shows S1, S2 clear. No murmurs auscultated. ABDOMEN: Soft, nontender, nondistended, obese. No palpable organomegaly is noted. BACK: Shows spine grossly in the midline. Normal-appearing cervical lordotic curvature. There is increased thoracic kyphosis, some flattening of the lumbar lordotic curvature. Lumbar paraspinous muscles show symmetrical on inspection, on palpation shows some moderate tenderness diffusely throughout the upper, middle and lower distribution of the paraspinous muscles bilaterally and also into the lower thoracic paraspinous musculature, with tenderness with palpation in the lumbar distribution upper middle lower distribution also in the lower thoracic paraspinous muscle very firm ropelike musculature with trigger point quality bilaterally worse on the left the right is present throughout the lumbar paraspinous musculature is noted also in the superior gluteus on the left side shows significant tenderness with very firm ropelike musculature as well consistent with areas of trigger point musculature. Patient has well-healed surgical scar noted also easily palpable spinal cord stimulator generator in the left low back as well. The patient has good rotational motion of the lumbar spine, both laterally as well as extension and flexion without significant difficulty. No tenderness over the spinous processes, sacrum or sacroiliac regions. EXTREMITIES: Lower extremities show deep tendon reflexes 1+ in the patellar and tendo calcaneus tendons. Motor exam is 5 on a scale of 5 with right dorsiflexion, extension, quadriceps and hamstring flexion and 5/5 on the left. Peripheral pulses are 1+ posterior tibial. No peripheral edema is noted bilaterally. Lower extremities are warm and dry. SKIN: Shows warm and dry, good turgor. No edema. No sores, rashes or bruising throughout. Procedure: Procedure: Options were discussed with patient. Patient chart reviews his current medication regimen updated current view of systems updated today as well. We will proceed with trigger point areas identified musculature in the bilateral thoracic paraspinous posterior bilateral lumbar paraspinous muscles and left gluteus musculature. Risk discussed including but not limited to bleeding infection possibility of intravascular injection sequelae spread of local anesthetic numbness side effects steroid medication portals regarding pain control. Patient understands wished to proceed. Patient will return to clinic in approximate 4 weeks for follow-up, was counseled as to return appointment, activity level, and side effect to be aware of. Medication Injected: Med Injected: Patient sitting position under sterile prep and drape patient is thoracic paraspinous muscular lumbar paraspinous posterior and gluteus musculature was sterilely prepped and draped in usual fashion. Using 25-gauge needle after negative aspiration each injection site identified trigger points were injected with using a total of 10 cc 0.25% bupivacaine a total of 40 mg Depo-Medrol. Patient tolerated the procedure well and had no complications. Condition at Discharge: Condition at Discharge: Condition at discharge stable, patient tolerated the procedure well and had no complications. ARBEN BUNCH MD May 01, 2021 14:48
--- NOTE | 2021-05-01 14:49 | PDOC4 ---
Procedure Note: ICD 10 Code: ICD 10 Code: M60.89 Procedure Note: Patient was consented for trigger point injections bilateral thoracic paraspinous posterior bilateral lumbar paraspinous muscular and left gluteus musculature. Risk were discussed including but not limited to bleeding infection possibility of intravascular injection sequelae spread of local anesthetic and numbness side effects steroid medication and poor results regarding pain control. Patient understands wishes to proceed. Patient sitting position under sterile prep and drape patient is thoracic samuel pinous muscular lumbar paraspinous posterior and gluteus musculature was sterilely prepped and draped in usual fashion. Using 25-gauge needle after negative aspiration each injection site identified trigger points were injected with using a total of 10 cc 0.25% bupivacaine a total of 40 mg Depo-Medrol. Patient tolerated the procedure well and had no complications. ARBEN BUNCH MD May 01, 2021 14:49
== END | disposition home or self-care (01) ==
LOC: PNCL 13:30
PROVIDERS: ATTEND Anesthesiology
DX: M47.26 Other spondylosis with radiculopathy, lumbar region (principal); M96.1 Postlaminectomy syndrome, not elsewhere classified; M79.18 Myalgia, other site; I11.0 Hypertensive heart disease with heart failure; I50.9 Heart failure, unspecified; I25.10 Atherosclerotic heart disease of native coronary artery without angina pectoris; E78.00 Pure hypercholesterolemia, unspecified; J44.9 Chronic obstructive pulmonary disease, unspecified; G47.30 Sleep apnea, unspecified; M19.90 Unspecified osteoarthritis, unspecified site; M10.9 Gout, unspecified; Z79.82 Long term (current) use of aspirin; Z79.899 Other long term (current) drug therapy; Z87.891 Personal history of nicotine dependence; Z98.890 Other specified postprocedural states
CPT/HCPCS: 20553; J1030; J3490

== ENCOUNTER 2021-07-04 13:29 | Inpatient (IN) | payer MEDICARE, BC ==
[~2021-07-04] VITALS: Ht 170.2 cm; Wt 91.4 kg
[~2021-07-04 13:29] MED LIST changes: -BUPIVACAINE MPF 0.25% 10 ML VIAL. ONE; -methylPREDNISolone ACETATE 40 MG/ML VIAL. ONE
[2021-07-04] MEDS ORDERED: methylPREDNISolone SOD SUCC PF 125 MG/2 ML VIAL. IV ONE (14:00)
[2021-07-04] MEDS ORDERED: IPRATRPIUM/ALBUTEROL 0.5/2.5MG 3 ML NEBU. NEB ONE (14:00)
[2021-07-04 14:31] LABS: BASE EXCESS COOX 1 mmol/L (-3-3); HCO3 COOX 28 mmol/L (21-28); METHEMOGLOBIN 0.6 % (0.0-1.9); OXYHEMOGLOBIN 80.4 %; PCO2 COOX 52 mmHg (35-46); SAT O2 COOX 81 % (92-99)
[2021-07-04 14:33] LABS: BASO # 0.1 x10^3/uL (0.0-0.2); BASO % 1 % (0-3); EOS # 0.2 x10^3/uL (0.0-0.7); EOS % 2 % (0-3); HEMATOCRIT 35.2 % (39.0-53.0); HEMOGLOBIN 11.1 g/dL (13.0-17.5); LYMPH # 1.1 x10^3/uL (1.0-4.8); LYMPH % 16 % (24-48); MEAN CORPUSCULAR HEMOGLOBIN 29 pg (25-35); MEAN CORPUSCULAR HGB CONC 32 g/dL (31-37); MEAN CORPUSCULAR VOLUME 91 fL (79-100); MONO # 0.6 x10^3/uL (0.0-1.1); MONO % 8 % (0-9); NEUT # 4.8 x10^3/uL (1.8-7.7); NEUT % 72 % (31-73); PLATELET COUNT 149 x10^3/uL (140-400); RED BLOOD COUNT 3.88 x10^6/uL (4.30-5.70); RED CELL DISTRIBUTION WIDTH 16.1 % (11.5-14.5); WHITE BLOOD COUNT 6.7 x10^3/uL (4.0-11.0)
--- NOTE | 2021-07-04 14:33 | PHYS DOC ---
Past Medical History Past Medical History: Asthma, CAD, CHF, COPD, High Cholesterol, Hypertension, NC Additional Past Medical Histor: CPAP USE AT HOME, HEART DISEASE,COVID-19 Past Surgical History: Other Additional Past Surgical Histo: STENT, BACK SURGERY, PLATE IN NECK, NERVE STIMULATOR Smoking Status: Former Smoker Alcohol Use: None Drug Use: None General Adult EDM: Chief Complaint: SHORTNESS OF BREATH HPI: HPI: Patient is a 86 year old male who presents with patient states over the last 4 days he has noticed an increase in shortness of breath. He does not wear oxygen normally. He states that his is on oxygen all day long and so he will reach over and take her oxygen for little bit and then he would feel better. He states that he awoke this morning and his oxygen saturation was 67% after he took his CPAP off. He states he just has not been feeling well. He states he has a wet cough but he cannot get anything up. He does take Lasix 40 mg daily of which she did take today. He is fully vaccinated with a booster for Covid. Upon arrival patient was 76% on room air. Patient denies chest pain, dizziness, syncope, fever, nausea, vomiting, abdominal pain, back pain, focal weakness, numbness or tingling. Patient has a history of COVID-19, nerve stimulator, former smoker, CPAP at night, CHF, COPD, CAD, asthma, high cholesterol, hypertension, NC with cardiac stents. Review of Systems: Review of Systems: Constitutional: Denies fever or chills. [] Eyes: Denies change in visual acuity. [] HENT: Denies nasal congestion or sore throat. [] Respiratory: + cough or +shortness of breath. [] Cardiovascular: Denies chest pain or + bilateral lower extremity edema. [] GI: Denies abdominal pain, nausea, vomiting, bloody stools or diarrhea. [] : Denies dysuria. [] Musculoskeletal: Denies back pain or joint pain. [] Integument: Denies rash. [] Neurologic: Denies headache, focal weakness or sensory changes. [] Endocrine: Denies polyuria or polydipsia. [] Lymphatic: Denies swollen glands. [] Psychiatric: Denies depression or anxiety. [] Heart Score: C/O Chest Pain: No HEART Score for Chest Pain: HEART Score for Chest Pain Response (Comments) Value History Slighlty/Non-Suspicious 0 ECG Nonspecific Repolarizatio 1 Age > 65 2 Risk Factors >3 Risk Factors or Hx CAD 2 Troponin < Normal Limit 0 Total 5 Risk Factors: Risk Factors: DM, Current or recent (<one month) smoker, HTN, HLP, family history of CAD, obesity. Risk Scores: Score 0 - 3: 2.5% MACE over next 6 weeks - Discharge Home Score 4 - 6: 20.3% MACE over next 6 weeks - Admit for Clinical Observation Score 7 - 10: 72.7% MACE over next 6 weeks - Early Invasive Strategies Current Medications: Current Medications Medications (Trade) Dose Ordered Sig/Gavin Start Time Stop Time Status Last Admin Dose Admin Albuterol/ Ipratropium (Duoneb) 3 ml 1X ONCE 07/04/21 14:00 07/04/21 14:02 DC 07/04/21 14:14 3 ML Methylprednisolone Sodium Succinate (SOLU-Medrol 125MG VIAL) 125 mg 1X ONCE 07/04/21 14:00 07/04/21 14:02 DC 07/04/21 14:21 125 MG Allergies: Allergies: Allergies Coded Allergies Type Severity Reaction Last Updated Verified No Known Drug Allergies 12/21/18 No Physical Exam: PE: Constitutional: Well developed, well nourished, no acute distress, non-toxic appearance. [] HENT: Normocephalic, atraumatic, bilateral external ears normal, oropharynx moist, no oral exudates, nose normal. [] Eyes: PERRLA, EOMI, conjunctiva normal, no discharge. [] Neck: Normal range of motion, no tenderness, supple, no stridor. [] Cardiovascular:Heart rate regular rhythm, no murmur [] Lungs & Thorax: Bilateral upper breath sounds clear and lower diminished to auscultation [] Abdomen: Bowel sounds normal, soft, no tenderness, no masses, no pulsatile masses. [] Skin: Warm, dry, no erythema, no rash. [] Back: No tenderness, no CVA tenderness. [] Extremities: No tenderness, no cyanosis, no clubbing, ROM intact, no edema. [] Neurologic: Alert and oriented X 3, normal motor function, normal sensory function, no focal deficits noted. [] Psychologic: Affect normal, judgement normal, mood normal. [] Current Patient Data: Vital Signs: Vital Signs Date Time Temp Pulse Resp B/P (MAP) Pulse Ox O2 Delivery O2 Flow Rate FiO2 07/04/21 14:14 94 Nasal Cannula 3.0 07/04/21 13:29 97.4 53 24 142/63 (89) 97.4 EKG: EK and read by Dr. Santana is a irregular rhythm with a incomplete right bundle branch block no STEMI Radiology/Procedures: Radiology/Procedures: [] Impression: [facility] [address] [place] [address] IMAGING REPORT Signed PATIENT: STEPHANY MCNEILL ACCOUNT: [id number] : 1935 LOCATION: ER AGE: 86 SEX: M EXAM STATUS: REG ER ORD. PHYSICIAN: BART MADERA APRN REASON: SOA PROCEDURE: PORTABLE CHEST 1V EXAM: Chest, single view. HISTORY: Shortness of air. COMPARISON: 02/07/2021 FINDINGS: A frontal view of the chest is obtained. There is diffuse lower lobe predominant interstitial infiltrate. There are small pleural effusions. There is cardiomegaly. There is cervical spinal fusion instrumentation. There are dorsal column stimulator leads overlying the thoracic spine. IMPRESSION: 1. Diffuse lower lobe predominant interstitial infiltrate with small pleural effusions. 2. Cardiomegaly. Electronically signed by: Karlie Sosa MD (07/04/2021 2:32 PM) [id number] DICTATED and SIGNED BY: KARLIE SOSA MD DATE: 07/04/21 [id number] 0 Course & Med Decision Making: Course & Med Decision Making Pertinent Labs and Imaging studies reviewed. (See chart for details) See HPI. Alert and oriented x4. Speaks in full clear sentences. Ambulatory with a steady gait. Bilateral lower extremity 2+ edema. Skin pink warm and dry. Lungs are generally diminished. Does have a wet cough but he has not produced any sputum. Patient is placed on 5 L of oxygen and he is 100%. He states he did not do his nebulizer treatment at home for his COPD and so I have ordered him 1 here. Patient is hypoxic. He is placed on a venturi mask.he is stable. Looking at his chest x-ray it appears that this is more of a CHF exacerbation. I had Dr. Santana also look over this and she agrees. Patient admitted to hospitalist. [] Valdo Disclaimer: Valdo Disclaimer: This electronic medical record was generated, in whole or in part, using a voice recognition dictation system. Departure Departure Impression: Primary Impression: Acute exacerbation of CHF (congestive heart failure) Qualified Codes: I50.9 - Heart failure, unspecified Additional Impression: Hypoxia Disposition: 09 ADMITTED INPATIENT Admitting Physician: BK Condition: STABLE Referrals: Pretty SULLIVAN MD (PCP) BART MADERA APRN Jul 04, 2021 14:33
[2021-07-04 14:35] LABS: PO2 COOX 46 mmHg (65-108)
--- NOTE | 2021-07-04 14:35 | RAD ---
EXAM: Chest, single view. HISTORY: Shortness of air. COMPARISON: 02/07/2021 FINDINGS: A frontal view of the chest is obtained. There is diffuse lower lobe predominant interstiti al infiltrate. There are small pleural effusions. There is cardiomegaly. There is cervical spinal fus ion instrumentation. There are dorsal column stimulator leads overlying the thoracic spine. IMPRESSION: 1. Diffuse lower lobe predominant interstitial infiltrate with small pleural effusions. 2. Cardiomegaly. Electronically signed by: Karlie Smith MD (07/04/2021 2:32 PM) [id number]
[2021-07-04 15:04] LABS: CALCIUM 8.7 mg/dL (8.5-10.1); CREATININE 1.7 mg/dL (0.7-1.3); GFR 38.6; POTASSIUM 4.6 mmol/L (3.5-5.1)
[2021-07-04 15:12] LABS: ALBUMIN 3.1 g/dL (3.4-5.0); ALBUMIN/GLOBULIN RATIO 0.9 (1.0-1.7); TOTAL BILIRUBIN 0.9 mg/dL (0.2-1.0); TOTAL PROTEIN 6.5 g/dL (6.4-8.2)
[2021-07-04] MEDS ORDERED: FUROSEMIDE 40 MG/4 ML VIAL. IVP ONE (15:30)
--- NOTE | 2021-07-04 15:56 | PDOC1 ---
History and Physical Date of Service: DOS: DATE: 07/04/21 TIME: 15:42 Chief Complaint: Chief Complain: Shortness of breath History of Present Illness: HPI: 86-year-old male history of COVID-19, nerve stimulator, former smoker, FER CPAP at night, CHF, COPD, CAD, asthma, high cholesterol, hypertension, [place] with cardiac stents who comes in with shortness of breath for the last 4 days and has worsened the last 2 days. Patient normally does not wear oxygen at home. He did use a pulse oximeter which measured at 67% after he took his CPAP off. Overall he has been feeling fatigued but denies any fevers. Endorses what a cough but unable to produce anything. He does take 40 mg of Lasix by mouth every day. Patient is vaccinated for Covid. On arrival in the ED patient was saturating 76% on room air. He was given Lasix dose, steroids and breathing treatments and improved. Patient currently is on Venturi mask at 15 L and saturating 97%. Upon my encounter patient was speaking full sentences and was not more short of breath than usual. Past Medical/Surgical History: PMH/PSH: Past Medical History: Asthma, CAD, CHF, COPD, High Cholesterol, Hypertension, MD, CPAP USE AT HOME, HEART DISEASE,COVID-19 Past Surgical History: STENT, BACK SURGERY, PLATE IN NECK, NERVE STIMULATOR Allergies: Allergies: Coded Allergies: No Known Drug Allergies (Unverified , 12/21/18) Family History: Family History: Reviewed revealing stroke, heart attack, hypertension, lung cancer Social History: Social History: Smoking Status: Former Smoker Alcohol Use: None Drug Use: None Current Medications: Current Medications Current Medications Methylprednisolone Sodium Succinate (SOLU-Medrol 125MG VIAL) 125 mg 1X ONCE IV Last administered on 07/04/21at 14:21; Start 07/04/21 at 14:00; Stop 07/04/21 at 14:02; Status DC Albuterol/ Ipratropium (Duoneb) 3 ml 1X ONCE NEB Last administered on 07/04/21at 14:14; Start 07/04/21 at 14:00; Stop 07/04/21 at 14:02; Status DC Furosemide (Lasix) 40 mg 1X ONCE IVP Last administered on 07/04/21at 15:38; Start 07/04/21 at 15:30; Stop 07/04/21 at 15:31; Status DC Active Scripts Active Prednisone 20 Mg Tablet 40 Mg PO DAILY 5 Days Amlodipine Besylate 10 Mg Tablet 10 Mg PO DAILY 30 Days Culturelle (Lactobacillus Rhamnosus Gg) 1 Each Cap.sprink 1 Cap PO BID 30 Days Guaifenesin Dm Syrup (Guaifenesin/Dextromethorphan) 5 Ml Syrup 10 Ml PO PRN Q6HRS PRN 10 Days Klor-Con M20 (Potassium Chloride) 20 Meq Tab.er.prt 20 Meq PO DAILYWBKFT 30 Days Duoneb 0.5-3(2.5) Mg/3 Ml (Albuterol/Ipratropium) 3 Ml Ampul.neb 3 Ml NEB RTQID 30 Days Flovent 44MCG Hfa (Fluticasone Propionate) 10.6 Gm Aer.w.adap 1 Puff IH BID Advair 100-50 Diskus (Fluticasone/Salmeterol) 1 Each Disk.w.dev 1 Puff IH BID Combivent Respimat Inhal (Ipratropium/Albuterol Sulfate) 4 Gm Aer.w.adap 1 Inh IH QID Colace (Docusate Sodium) 100 Mg Capsule 100 Mg PO BID Crestor (Rosuvastatin Calcium) 20 Mg Tablet 1 Tab PO DAILY Reported Azelastine Hcl 137 Mcg/0.137 Ml [place].pump 2 [place] NS BID 30 Days Flomax (Tamsulosin Hcl) 0.4 Mg Cap.er.24h 1 Cap PO DAILY Lyrica (Pregabalin) 150 Mg Capsule 1 Cap PO BID Atorvastatin Calcium 40 Mg Tablet 1 Tab PO DAILY Allopurinol 300 Mg Tablet 1 Tab PO DAILY Coreg (Carvedilol) 12.5 Mg Tablet 1 Tab PO BID Fish Oil 1,400 Mg Softgel (Shirley-3/Dha/Epa/Fish Oil) 1 Each Capsule.dr 1 Each PO DAILY Lasix (Furosemide) 40 Mg Tablet 1 Tab PO DAILY Aspirin Ec (Aspirin) 81 Mg Tablet.dr 1 Tab PO HS Centrum Silver Tablet (Multivits-Min/Fa/Lycopene/Lut) 1 Each Tablet 1 Each PO Nitrostat (Nitroglycerin) 0.4 Mg Tab.subl 0.4 Mg SL PRN Q5MIN PRN Vitamin D (Cholecalciferol (Vitamin D3)) 1,000 Unit Tablet 1,000 Unit PO DAILY Gabapentin 600 Mg Tablet 600 Mg PO BID ROS: Review of Systems Review of System REVIEW OF SYSTEMS: GENERAL: Denies weakness SKIN: No bruising, hair changes or rashes. EYES: No blurred, double or loss of vision. NOSE AND THROAT: No history of nosebleeds, hoarseness or sore throat. HEART: No history of palpitations, chest pain or shortness of breath on exertion. LUNGS: Positive for shortness of breath GASTROINTESTINAL: Denies changes in appetite, nausea, vomiting, diarrhea or constipation. GENITOURINARY: No history of frequency, urgency, hesitancy or nocturia. NEUROLOGIC: Denies history of numbness, tingling, or tremor. PSYCHIATRIC: No history of panic, anxiety or depression. ENDOCRINE: No history of heat or cold intolerance, polyuria or polydipsia. EXTREMITIES: Denies joint pain, pain on walking or stiffness. Physical Exam: Vital Signs: Vital Signs Date Time Temp Pulse Resp B/P (MAP) Pulse Ox O2 Delivery O2 Flow Rate FiO2 07/04/21 14:14 94 Nasal Cannula 3.0 07/04/21 13:29 97.4 53 24 142/63 (89) 97.4 Physcial Exam: General: Well developed, well nourished, no acute distress, well appearing HEENT: Pupils equally round and reactive to light, EOMI, no discharge, normal conjunctiva Neck: Supple, no nuchal rigidity, no JVD, trachea midline, no tenderness Cardiac: RRR, no murmurs, no gallops, no rubs Chest/Lungs: Bilaterally diminished with minimal crackles in the basilar region s, no wheeze, no rhonchi, no crackles Abdomen: soft, non-distended, no guarding, no peritoneal signs, non-tender Back: No tenderness Extremities: Bilateral +2 pedal edema, pulses intact, non-tender,capillary refill <3 sec bilateral upper and lower extremities, Neuro: Alert and oriented x 4, no focal deficits, normal speech Labs: Labs: Laboratory Tests Test 07/04/21 14:15 07/04/21 14:31 White Blood Count 6.7 x10^3/uL (4.0-11.0) Red Blood Count 3.88 x10^6/uL (4.30-5.70) Hemoglobin 11.1 g/dL (13.0-17.5) Hematocrit 35.2 % (39.0-53.0) Mean Corpuscular Volume 91 fL (79-100) Mean Corpuscular Hemoglobin 29 pg (25-35) Mean Corpuscular Hemoglobin Concent 32 g/dL (31-37) Red Cell Distribution Width 16.1 % (11.5-14.5) Platelet Count 149 x10^3/uL (140-400) Neutrophils (%) (Auto) 72 % (31-73) Lymphocytes (%) (Auto) 16 % (24-48) Monocytes (%) (Auto) 8 % (0-9) Eosinophils (%) (Auto) 2 % (0-3) Basophils (%) (Auto) 1 % (0-3) Neutrophils # (Auto) 4.8 x10^3/uL (1.8-7.7) Lymphocytes # (Auto) 1.1 x10^3/uL (1.0-4.8) Monocytes # (Auto) 0.6 x10^3/uL (0.0-1.1) Eosinophils # (Auto) 0.2 x10^3/uL (0.0-0.7) Basophils # (Auto) 0.1 x10^3/uL (0.0-0.2) Sodium Level 150 mmol/L (136-145) Potassium Level 4.6 mmol/L (3.5-5.1) Chloride Level 110 mmol/L (98-107) Carbon Dioxide Level 29 mmol/L (21-32) Anion Gap 11 (6-14) Blood Urea Nitrogen 20 mg/dL (8-26) Creatinine 1.7 mg/dL (0.7-1.3) Estimated GFR (Cockcroft-Gault) 38.6 BUN/Creatinine Ratio 12 (6-20) Glucose Level 124 mg/dL (70-99) Calcium Level 8.7 mg/dL (8.5-10.1) Total Bilirubin 0.9 mg/dL (0.2-1.0) Aspartate Amino Transf (AST/SGOT) 13 U/L (15-37) Alanine Aminotransferase (ALT/SGPT) 15 U/L (16-63) Alkaline Phosphatase 107 U/L (46-116) Troponin I High Sensitivity 15 ng/L (4-75) II-Ehc-K-Type Natriuretic Peptide 1022 pg/mL (0-449) Total Protein 6.5 g/dL (6.4-8.2) Albumin 3.1 g/dL (3.4-5.0) Albumin/Globulin Ratio 0.9 (1.0-1.7) O2 Saturation 81 % (92-99) Arterial Blood pH 7.35 (7.35-7.45) Arterial Blood pCO2 at Patient Temp 52 mmHg (35-46) Arterial Blood pO2 at Patient Temp 46 mmHg (65-108) Arterial Blood HCO3 28 mmol/L (21-28) Arterial Blood Base Excess 1 mmol/L (-3-3) Oxyhemoglobin 80.4 % Methemoglobin 0.6 % (0.0-1.9) Carbon Monoxide, Quantitative 0.2 % (0.0-1.9) Laboratory Tests Test 07/04/21 14:15 07/04/21 14:31 White Blood Count 6.7 x10^3/uL (4.0-11.0) Red Blood Count 3.88 x10^6/uL (4.30-5.70) Hemoglobin 11.1 g/dL (13.0-17.5) Hematocrit 35.2 % (39.0-53.0) Mean Corpuscular Volume 91 fL (79-100) Mean Corpuscular Hemoglobin 29 pg (25-35) Mean Corpuscular Hemoglobin Concent 32 g/dL (31-37) Red Cell Distribution Width 16.1 % (11.5-14.5) Platelet Count 149 x10^3/uL (140-400) Neutrophils (%) (Auto) 72 % (31-73) Lymphocytes (%) (Auto) 16 % (24-48) Monocytes (%) (Auto) 8 % (0-9) Eosinophils (%) (Auto) 2 % (0-3) Basophils (%) (Auto) 1 % (0-3) Neutrophils # (Auto) 4.8 x10^3/uL (1.8-7.7) Lymphocytes # (Auto) 1.1 x10^3/uL (1.0-4.8) Monocytes # (Auto) 0.6 x10^3/uL (0.0-1.1) Eosinophils # (Auto) 0.2 x10^3/uL (0.0-0.7) Basophils # (Auto) 0.1 x10^3/uL (0.0-0.2) Sodium Level 150 mmol/L (136-145) Potassium Level 4.6 mmol/L (3.5-5.1) Chloride Level 110 mmol/L (98-107) Carbon Dioxide Level 29 mmol/L (21-32) Anion Gap 11 (6-14) Blood Urea Nitrogen 20 mg/dL (8-26) Creatinine 1.7 mg/dL (0.7-1.3) Estimated GFR (Cockcroft-Gault) 38.6 BUN/Creatinine Ratio 12 (6-20) Glucose Level 124 mg/dL (70-99) Calcium Level 8.7 mg/dL (8.5-10.1) Total Bilirubin 0.9 mg/dL (0.2-1.0) Aspartate Amino Transf (AST/SGOT) 13 U/L (15-37) Alanine Aminotransferase (ALT/SGPT) 15 U/L (16-63) Alkaline Phosphatase 107 U/L (46-116) Troponin I High Sensitivity 15 ng/L (4-75) MD-Cwn-G-Type Natriuretic Peptide 1022 pg/mL (0-449) Total Protein 6.5 g/dL (6.4-8.2) Albumin 3.1 g/dL (3.4-5.0) Albumin/Globulin Ratio 0.9 (1.0-1.7) O2 Saturation 81 % (92-99) Arterial Blood pH 7.35 (7.35-7.45) Arterial Blood pCO2 at Patient Temp 52 mmHg (35-46) Arterial Blood pO2 at Patient Temp 46 mmHg (65-108) Arterial Blood HCO3 28 mmol/L (21-28) Arterial Blood Base Excess 1 mmol/L (-3-3) Oxyhemoglobin 80.4 % Methemoglobin 0.6 % (0.0-1.9) Carbon Monoxide, Quantitative 0.2 % (0.0-1.9) Images: Images PROCEDURE: PORTABLE CHEST 1V EXAM: Chest, single view. HISTORY: Shortness of air. COMPARISON: 02/07/2021 FINDINGS: A frontal view of the chest is obtained. There is diffuse lower lobe predominant interstitial infiltrate. There are small pleural effusions. There is cardiomegaly. There is cervical spinal fusion instrumentation. There are dorsal column stimulator leads overlying the thoracic spine. IMPRESSION: 1. Diffuse lower lobe predominant interstitial infiltrate with small pleural effusions. 2. Cardiomegaly. Assessment/Plan Assessment/Plan Problem List: Acute hypoxic respiratory failure Acute on chronic CHF exacerbation, diastolic dysfunction, last echo in 2019 showed LVEF of 55% Acute electrolyte derangementhypernatremia, hyperchloremia suggestive of dehydration, possibly intravascular depleted Concern for COPD exacerbation Elevated BNP suggestive of volume overload Obesity class I Hx of CHF, diastolic dysfunction Hx of HTN Hx of MD Hx of FER compliant with CPAP Hx of COVID-19 infection Hx of neurostimulator placement History of chronic back pain Admit to hospitalist service for further management Cardiology consult Strict I/O Monitor urine output Lasix IV diuresis as needed daily DuoNebs as needed Lovenox for DVT prophylaxis Protonix GI prophylaxis ADA diet CODE STATUS full Discussed with RN and SW Disposition inpatient management as above, pending cardiology evaluation DPOA: Justifications for Admission Other Justification Shortness of breath YARITZA MARTINEZ MD Jul 04, 2021 15:55
[2021-07-04] MEDS ORDERED: SENNOSIDES 8.6 MG TABLET PO PRN (16:00)
[2021-07-04] MEDS ORDERED: diphenhydrAMINE 50 MG/ML VIAL IVP PRN (16:00)
[2021-07-04] MEDS ORDERED: DEXTROSE 50% 25 GM / 50ML DISP.SYRIN. IV PRN (16:00)
[2021-07-04] MEDS ORDERED: ONDANSETRON PF 4 MG/2 ML VIAL. IVP PRN (16:00)
[2021-07-04] MEDS ORDERED: IPRATRPIUM/ALBUTEROL 0.5/2.5MG 3 ML NEBU. NEB SCH ×2 (16:00→20:00)
[2021-07-04] MEDS ORDERED: DOCUSATE SODIUM 100 MG CAPSULE. PO PRN (16:00)
[2021-07-04] MEDS ORDERED: PROCHLORPERAZINE 10 MG/2 ML VIAL. IV PRN (16:00)
[2021-07-04] MEDS ORDERED: LORazepam 0.5 MG TABLET PO PRN (16:00)
[2021-07-04] MEDS ORDERED: ACETAMINOPHEN 325 MG TABLET. PO PRN (16:00)
[2021-07-04] MEDS ORDERED: ZOLPIDEM 5 MG TABLET. PO PRN (16:00)
[2021-07-04] MEDS ORDERED: diphenhydrAMINE HCL 25 MG CAPSULE PO PRN ×2 (16:00)
[2021-07-04 17:15] VITALS: BP 131/48
[2021-07-04] MEDS ORDERED: IBUP800T19 PO (17:20)
[2021-07-04] MEDS ORDERED: DONE5TAB7 PO (17:20)
[2021-07-04 19:00] VITALS: BP 145/58
[2021-07-04] MEDS ORDERED: NON FORMULARY ITEM (Ipratropium/Albuterol Sulfate (Combivent Respimat Inhal) 1 INH) IH SCH (21:00)
[2021-07-04] MEDS: IPRATROPIUM/ALBUTEROL 20/100mcg/INH INHALER. INH SCH (21:18)
[2021-07-04] MEDS: ASPIRIN ENTERIC COATED 81 MG TABLET.DR. PO SCH (21:19)
[2021-07-04] MEDS: DOCUSATE SODIUM 100 MG CAPSULE. PO SCH (21:19)
[2021-07-04] MEDS: LACTOBACILLUS RHAMNOSUS GG 1 CAPSULE. PO SCH (21:19)
[2021-07-04] MEDS: methylPREDNISolone SOD SUCC PF 40 MG/ML VIAL. IV SCH (21:20)
[2021-07-04] MEDS: GABAPENTIN 300 MG CAPSULE. PO SCH (21:20)
[2021-07-04] MEDS: PREGABALIN 75 MG CAPSULE PO SCH (21:21)
[2021-07-04] MEDS: CARVEDILOL 12.5 MG TABLET. PO SCH (21:23)
[2021-07-04 23:00] VITALS: BP 128/47
[2021-07-05] VITALS (7 sets, daily range): BP systolic 126–140; BP diastolic 47–58
--- NOTE | 2021-07-05 01:11 | NUR ---
Wears Cpap at home, did not bring his machine. RT set it up for him but he states "I hate it, I can't wear this." Back to Venturi mask.
--- NOTE | 2021-07-05 05:26 | EKG ---
[facility] [address] [place] [address] Test Date: 2021-07-04 Test Time: 13:42:35 Pat Name: STEPHANY MCNEILL Department: Room: 6 Gender: M Douper: : [id number] Requested By: BART MADERA Order Number: [id number] Reading MD: Werner Osman Measurements Intervals [place] Rate: 51 P: ME: QRS: 27 QRSD: 110 T: 83 QT: 482 QTc: 442 Interpretive Statements SINUS BRADYCARDIA INCOMPLETE RIGHT BUNDLE BRANCH BLOCK ST & T ABNORMALITY, CONSIDER INFERIOR ISCHEMIA OR LEFT VENTRICULAR STRAIN T ABNORMALITY IN HIGH LATERAL LEADS ABNORMAL ECG Electronically Signed On 07-06-2021 14:00:06 [employer] by Werner Osman
[2021-07-05] MEDS: methylPREDNISolone SOD SUCC PF 40 MG/ML VIAL. IV SCH ×3 (06:28→20:59)
[2021-07-05 07:22] LABS: BASO % 0 % (0-3); EOS % 0 % (0-3); HEMOGLOBIN 10.6 g/dL (13.0-17.5); LYMPH # 0.6 x10^3/uL (1.0-4.8); LYMPH % 11 % (24-48); MEAN CORPUSCULAR HEMOGLOBIN 29 pg (25-35); MEAN CORPUSCULAR HGB CONC 32 g/dL (31-37); MEAN CORPUSCULAR VOLUME 90 fL (79-100); MONO # 0.1 x10^3/uL (0.0-1.1); MONO % 1 % (0-9); NEUT # 5.1 x10^3/uL (1.8-7.7); NEUT % 88 % (31-73); PLATELET COUNT 142 x10^3/uL (140-400); RED BLOOD COUNT 3.66 x10^6/uL (4.30-5.70); RED CELL DISTRIBUTION WIDTH 15.4 % (11.5-14.5); WHITE BLOOD COUNT 5.7 x10^3/uL (4.0-11.0)
[2021-07-05 07:29] LABS: CALCIUM 8.1 mg/dL (8.5-10.1); CREATININE 1.7 mg/dL (0.7-1.3); GFR 38.6; MAGNESIUM 2.4 mg/dL (1.8-2.4); PHOSPHORUS 2.7 mg/dL (2.6-4.7); POTASSIUM 4.5 mmol/L (3.5-5.1)
[2021-07-05] MEDS ORDERED: THIAMINE INJ 100 MG in IV DEXTROSE 5% 50 ML IV SCH (09:00)
[2021-07-05] MEDS ORDERED: ALLOPURINOL 300 MG TABLET. PO SCH (09:00)
[2021-07-05] MEDS: IPRATROPIUM/ALBUTEROL 20/100mcg/INH INHALER. INH SCH ×4 (09:58→20:52)
[2021-07-05] MEDS: DOCUSATE SODIUM 100 MG CAPSULE. PO SCH ×2 (09:58→20:59)
[2021-07-05] MEDS: LACTOBACILLUS RHAMNOSUS GG 1 CAPSULE. PO SCH ×2 (09:58→20:59)
[2021-07-05] MEDS: ZINC SULFATE 220 MG CAPSULE. PO SCH (10:00)
[2021-07-05] MEDS: PREGABALIN 75 MG CAPSULE PO SCH ×2 (10:00→21:00)
[2021-07-05] MEDS: TAMSULOSIN 0.4 MG CAP.ER.24H. PO SCH (10:00)
[2021-07-05] MEDS: GABAPENTIN 300 MG CAPSULE. PO SCH (10:01)
[2021-07-05] MEDS: CHOLECALCIFEROL (VITAMIN D3) 1,000 UNIT TABLET PO SCH (10:01)
[2021-07-05] MEDS: THIAMINE 100 MG TABLET. PO SCH (10:01)
[2021-07-05] MEDS: ATORVASTATIN CALCIUM 40 MG TABLET. PO SCH (10:02)
[2021-07-05] MEDS: CARVEDILOL 12.5 MG TABLET. PO SCH ×2 (10:02→18:06)
[2021-07-05] MEDS: ENOXAPARIN 30 MG/0.3 ML SYRINGE. SQ SCH (10:05)
[2021-07-05] MEDS: PANTOPRAZOLE 40 MG TABLET.DR. PO SCH (10:05)
--- NOTE | 2021-07-05 13:54 | PDOC ---
[facility] PROGRESS NOTE Date of Service DOS: DATE: 07/05/21 TIME: 13:40 Chief Complaint Chief Complaint Shortness of breath - with diffuse interstitial infiltrates and pleural effusions likely COPD + CHF. (Previously had COVID 04 March 2020, and since vaccinated.) Acute hypoxic respiratory failure - Wean O2 as tolerated. Recently discharged on O2, needs have increased Asthma - cont nebs CAD - cont cardiac meds dCHF - clear this is an acute exacerbation with COPD as well. Will consult cardiology High Cholesterol - cont statin Hypertension - cont meds FER on CPAP - nocturnal CPAP Chronic back pain s/p spinal stimulator - monitor KELBY on CKD - vasomotor nephropathy from sepsis, given scant IVF given CHF history FEN - Cardiac diet PPX - lovenox FULL CODE Dispo - inpatient. continue to monitor symptoms and course. Mr Teran is an 84 yo M w/ PMHx Asthma, CAD, dCHF, High Cholesterol, Hypertension, FER on CPAP, chronic back pain s/p spinal stimulator, former smoker, quitted smoking in 2008 who p/w worsening shortness of breath and weakness over the past 3 days. He reports weakness primarily in his bilateral lower extremities. He states his symptoms are worsened with exertion. History of Present Illness History of Present Illness 86-year-old male history of COVID-19, nerve stimulator, former smoker, FER CPAP at night, CHF, COPD, CAD, asthma, high cholesterol, hypertension, [place] with cardiac stents who comes in with shortness of breath for the last 4 days and has worsened the last 2 days. Patient normally does not wear oxygen at home. He did use a pulse oximeter which measured at 67% after he took his CPAP off. Overall he has been feeling fatigued but denies any fevers. Endorses what a cough but unable to produce anything. He does take 40 mg of Lasix by mouth every day. Patient is vaccinated for Covid. On arrival in the ED patient was saturating 76% on room air. He was given Lasix dose, steroids and breathing treatments and improved. Patient currently is on Venturi mask at 15 L and saturating 97%. Upon my encounter patient was speaking full sentences and was not more short of breath than usual. 07/05: ABG 7.3 /46, rapid COVID-19 negative. Wore BIPAP overnight, still on venti-mask. Has some nasal pain, feels a little better than last night. Vitals/I&O Vitals/I&O: Vital Signs Date Time Temp Pulse Resp B/P (MAP) Pulse Ox O2 Delivery O2 Flow Rate FiO2 07/05/21 11:00 97.4 60 18 137/56 (83) 96 Venturi Mask 15.0 97.4 I & O 07/04/21 07/04/21 07/05/21 15:00 23:00 07:00 Intake Total 120 ml Output Total 350 ml 200 ml Balance -350 ml -80 ml Physical Exam General: Alert, Oriented X3, Cooperative Heart: Regular rate, Normal S1, Normal S2 Lungs: Wheezing, Crackles Abdomen: Normal bowel sounds, Soft Extremities: Other (2+ edema) Labs Labs: Laboratory Tests Test 07/04/21 14:15 07/04/21 14:31 07/04/21 16:26 07/05/21 01:15 White Blood Count 6.7 x10^3/uL (4.0-11.0) Red Blood Count 3.88 x10^6/uL (4.30-5.70) Hemoglobin 11.1 g/dL (13.0-17.5) Hematocrit 35.2 % (39.0-53.0) Mean Corpuscular Volume 91 fL (79-100) Mean Corpuscular Hemoglobin 29 pg (25-35) Mean Corpuscular Hemoglobin Concent 32 g/dL (31-37) Red Cell Distribution Width 16.1 % (11.5-14.5) Platelet Count 149 x10^3/uL (140-400) Neutrophils (%) (Auto) 72 % (31-73) Lymphocytes (%) (Auto) 16 % (24-48) Monocytes (%) (Auto) 8 % (0-9) Eosinophils (%) (Auto) 2 % (0-3) Basophils (%) (Auto) 1 % (0-3) Neutrophils # (Auto) 4.8 x10^3/uL (1.8-7.7) Lymphocytes # (Auto) 1.1 x10^3/uL (1.0-4.8) Monocytes # (Auto) 0.6 x10^3/uL (0.0-1.1) Eosinophils # (Auto) 0.2 x10^3/uL (0.0-0.7) Basophils # (Auto) 0.1 x10^3/uL (0.0-0.2) Sodium Level 150 mmol/L (136-145) Potassium Level 4.6 mmol/L (3.5-5.1) Chloride Level 110 mmol/L (98-107) Carbon Dioxide Level 29 mmol/L (21-32) Anion Gap 11 (6-14) Blood Urea Nitrogen 20 mg/dL (8-26) Creatinine 1.7 mg/dL (0.7-1.3) Estimated GFR (Cockcroft-Gault) 38.6 BUN/Creatinine Ratio 12 (6-20) Glucose Level 124 mg/dL (70-99) Calcium Level 8.7 mg/dL (8.5-10.1) Total Bilirubin 0.9 mg/dL (0.2-1.0) Aspartate Amino Transf (AST/SGOT) 13 U/L (15-37) Alanine Aminotransferase (ALT/SGPT) 15 U/L (16-63) Alkaline Phosphatase 107 U/L (46-116) Troponin I High Sensitivity 15 ng/L (4-75) 16 ng/L (4-75) 13 ng/L (4-75) UV-Taa-O-Type Natriuretic Peptide 1022 pg/mL (0-449) Total Protein 6.5 g/dL (6.4-8.2) Albumin 3.1 g/dL (3.4-5.0) Albumin/Globulin Ratio 0.9 (1.0-1.7) SARS-CoV-2 Antigen (Rapid) Negative (NEGATIVE) O2 Saturation 81 % (92-99) Arterial Blood pH 7.35 (7.35-7.45) Arterial Blood pCO2 at Patient Temp 52 mmHg (35-46) Arterial Blood pO2 at Patient Temp 46 mmHg (65-108) Arterial Blood HCO3 28 mmol/L (21-28) Arterial Blood Base Excess 1 mmol/L (-3-3) Oxyhemoglobin 80.4 % Methemoglobin 0.6 % (0.0-1.9) Carbon Monoxide, Quantitative 0.2 % (0.0-1.9) Test 07/05/21 05:45 White Blood Count 5.7 x10^3/uL (4.0-11.0) Red Blood Count 3.66 x10^6/uL (4.30-5.70) Hemoglobin 10.6 g/dL (13.0-17.5) Hematocrit 33.0 % (39.0-53.0) Mean Corpuscular Volume 90 fL (79-100) Mean Corpuscular Hemoglobin 29 pg (25-35) Mean Corpuscular Hemoglobin Concent 32 g/dL (31-37) Red Cell Distribution Width 15.4 % (11.5-14.5) Platelet Count 142 x10^3/uL (140-400) Neutrophils (%) (Auto) 88 % (31-73) Lymphocytes (%) (Auto) 11 % (24-48) Monocytes (%) (Auto) 1 % (0-9) Eosinophils (%) (Auto) 0 % (0-3) Basophils (%) (Auto) 0 % (0-3) Neutrophils # (Auto) 5.1 x10^3/uL (1.8-7.7) Lymphocytes # (Auto) 0.6 x10^3/uL (1.0-4.8) Monocytes # (Auto) 0.1 x10^3/uL (0.0-1.1) Eosinophils # (Auto) 0.0 x10^3/uL (0.0-0.7) Basophils # (Auto) 0.0 x10^3/uL (0.0-0.2) Sodium Level 147 mmol/L (136-145) Potassium Level 4.5 mmol/L (3.5-5.1) Chloride Level 108 mmol/L (98-107) Carbon Dioxide Level 27 mmol/L (21-32) Anion Gap 12 (6-14) Blood Urea Nitrogen 23 mg/dL (8-26) Creatinine 1.7 mg/dL (0.7-1.3) Estimated GFR (Cockcroft-Gault) 38.6 Glucose Level 193 mg/dL (70-99) Calcium Level 8.1 mg/dL (8.5-10.1) Phosphorus Level 2.7 mg/dL (2.6-4.7) Magnesium Level 2.4 mg/dL (1.8-2.4) Assessment and Plan Assessmemt and Plan Problems Medical Problems: (1) Acute exacerbation of CHF (congestive heart failure) Status: Acute (2) Hypoxia Status: Acute Comment Review of Relevant I have reviewed the following items ayla (where applicable) has been applied. Medications: Current Medications Medications (Trade) Dose Ordered Sig/Gavin Route PRN Reason Start Time Stop Time Status Last Admin Dose Admin Methylprednisolone Sodium Succinate (SOLU-Medrol 125MG VIAL) 125 mg 1X ONCE IV 07/04/21 14:00 07/04/21 14:02 DC 07/04/21 14:21 Albuterol/ Ipratropium (Duoneb) 3 ml 1X ONCE NEB 07/04/21 14:00 07/04/21 14:02 DC 07/04/21 14:14 Furosemide (Lasix) 40 mg 1X ONCE IVP 07/04/21 15:30 07/04/21 15:31 DC 07/04/21 15:38 Enoxaparin Sodium (Lovenox 30mg Syringe) 30 mg DAILY SQ 07/05/21 09:00 07/05/21 10:05 Pantoprazole Sodium (Protonix) 40 mg DAILYAC PO 07/05/21 07:30 07/05/21 10:05 Allopurinol (Zyloprim) 300 mg DAILY PO 07/05/21 09:00 07/05/21 10:02 Amlodipine Besylate (Norvasc) 10 mg DAILY PO 07/05/21 09:00 07/05/21 10:00 Aspirin (Ecotrin) 81 mg HS PO 07/04/21 21:00 07/04/21 21:19 Atorvastatin Calcium (Lipitor) 40 mg DAILY PO 07/05/21 09:00 07/05/21 10:02 Carvedilol (Coreg) 12.5 mg BIDWMEALS PO 07/04/21 21:00 07/05/21 10:02 Vitamin D (Vitamin D3) 1,000 unit DAILY PO 07/05/21 09:00 07/05/21 10:01 Docusate Sodium (Colace) 100 mg BID PO 07/04/21 21:00 07/05/21 09:58 Lactobacillus Rhamnosus (Culturelle) 1 cap BID PO 07/04/21 21:00 07/05/21 09:58 Tamsulosin HCl (Flomax) 0.4 mg DAILY PO 07/05/21 09:00 07/05/21 10:00 Gabapentin (Neurontin) 600 mg BID PO 07/04/21 21:00 07/05/21 10:01 Pregabalin (Lyrica) 150 mg BID PO 07/04/21 21:00 07/05/21 10:00 Methylprednisolone Sodium Succinate (SOLU-Medrol 40MG VIAL) 40 mg Q8HRS IV 07/04/21 22:00 07/05/21 13:20 Thiamine Mononitrate (Vitamin B-1) 300 mg DAILY PO 07/05/21 09:00 07/05/21 10:01 Zinc Sulfate (Orazinc) 220 mg DAILY PO 07/05/21 09:00 07/05/21 10:00 Albuterol/ Ipratropium (Combivent Respimat 20-100 Mcg) 1 puff RTQID INH 07/04/21 21:00 07/05/21 12:49 Justifications for Admission Other Justification Shortness of breath GEORGETTE DOUGHERTY MD Jul 05, 2021 13:54
[2021-07-05] MEDS ORDERED: GABAPENTIN 100 MG CAPSULE. PO SCH (14:00)
--- NOTE | 2021-07-05 14:25 | PDOC2 ---
CONSULT Date of Consult Date of Consult DATE: 07/05/21 TIME: 14:24 Reason for Consult Reason for Consult: Congestive heart failure Referring Physician Referring Physician: Dr. Salcido Identification/Chief Complaint Chief Complaint Shortness of breath Source Source: Chart review, Patient History of Present Illness Reason for Visit: 86-year-old male with history of COPD, coronary artery disease and peripheral artery disease presented with progressive shortness of breath since last 4 days. He was found to be hypoxic in the ED and admitted for further management. He denied any chest pain, palpitations or syncope. His symptoms improved after intravenous Lasix. Past Medical History Cardiovascular: CAD, CHF, HTN, Hyperlipidemia, Other Pulmonary: COPD, Pneumonia, Other CENTRAL NERVOUS SYSTEM: Periperal neuropathy, Other Heme/Onc: Anemia NOS Musculoskeletal: low back pain, Other Renal/: Chronic renal failure, Other Past Surgical History Past Surgical History: Other Family History Family History: No Significant Social History ALCOHOL: none Drugs: None Current Problem List Problem List Problems Medical Problems: (1) Acute exacerbation of CHF (congestive heart failure) Status: Acute (2) Hypoxia Status: Acute Current Medications Current Medications Current Medications Methylprednisolone Sodium Succinate (SOLU-Medrol 125MG VIAL) 125 mg 1X ONCE IV Last administered on 07/04/21at 14:21; Start 07/04/21 at 14:00; Stop 07/04/21 at 14:02; Status DC Albuterol/ Ipratropium (Duoneb) 3 ml 1X ONCE NEB Last administered on 07/04/21at 14:14; Start 07/04/21 at 14:00; Stop 07/04/21 at 14:02; Status DC Furosemide (Lasix) 40 mg 1X ONCE IVP Last administered on 07/04/21at 15:38; Start 07/04/21 at 15:30; Stop 07/04/21 at 15:31; Status DC Sennosides (Senna) 17.2 mg PRN BID PRN PO CONSTIPATION; Start 07/04/21 at 16:00 Docusate Sodium (Colace) 100 mg PRN DAILY PRN PO HARD STOOLS; Start 07/04/21 at 16:00 Ondansetron HCl (Zofran) 4 mg PRN Q6HRS PRN IVP NAUSEA/VOMITING, 1st CHOICE; Start 07/04/21 at 16:00 Albuterol/ Ipratropium (Duoneb) 3 ml RTQID NEB ; Start 07/04/21 at 16:00; Stop 07/04/21 at 20:30; Status DC Dextrose (Dextrose 50%-Water Syringe) 12.5 gm PRN Q15MIN PRN IV SEE COMMENTS; Start 07/04/21 at 16:00 Acetaminophen (Tylenol) 650 mg PRN Q4HRS PRN PO TEMP OVER 100.4F OR MILD PAIN; Start 07/04/21 at 16:00 Lorazepam (Ativan) 0.5 mg PRN Q6HRS PRN PO ANXIETY / AGITATION; Start 07/04/21 at 16:00; Stop 07/05/21 at 13:43; Status DC Lorazepam (Ativan Inj) 0.25 mg PRN Q4HRS PRN IV ANXIETY / AGITATION; Start 07/04/21 at 16:00; Stop 07/05/21 at 13:43; Status DC Enoxaparin Sodium (Lovenox 30mg Syringe) 30 mg DAILY SQ Last administered on 07/05/21at 10:05; Start 07/05/21 at 09:00 Pantoprazole Sodium (Protonix) 40 mg DAILYAC PO Last administered on 07/05/21at 10:05; Start 07/05/21 at 07:30 Thiamine HCl 100 mg/Dextrose 51 ml @ 102 mls/hr DAILY IV ; Start 07/05/21 at 09:00; Status Cancel Prochlorperazine Edisylate (Compazine) 10 mg PRN Q6HRS PRN IV NAUSEA/VOMITING, 2nd CHOICE; Start 07/04/21 at 16:00 Diphenhydramine HCl (Benadryl) 25 mg PRN Q6HRS PRN IVP ITCHING; Start 07/04/21 at 16:00; Stop 07/05/21 at 13:43; Status DC Diphenhydramine HCl (Benadryl) 25 mg PRN Q6HRS PRN PO ITCHING; Start 07/04/21 at 16:00; Stop 07/05/21 at 13:43; Status DC Diphenhydramine HCl (Benadryl) 25 mg PRN QHS PRN PO INSOMNIA, 1st CHOICE; Start 07/04/21 at 16:00; Stop 07/05/21 at 13:43; Status DC Zolpidem Tartrate (Ambien) 2.5 mg PRN QHS PRN PO INSOMNIA, 2nd CHOICE; Start 07/04/21 at 16:00; Stop 07/05/21 at 13:43; Status DC Allopurinol (Zyloprim) 300 mg DAILY PO Last administered on 07/05/21at 10:02; Start 07/05/21 at 09:00; Stop 07/05/21 at 13:59; Status DC Amlodipine Besylate (Norvasc) 10 mg DAILY PO Last administered on 07/05/21at 10:00; Start 07/05/21 at 09:00 Aspirin (Ecotrin) 81 mg HS PO Last administered on 07/04/21at 21:19; Start 07/04/21 at 21:00 Atorvastatin Calcium (Lipitor) 40 mg DAILY PO Last administered on 07/05/21at 10:02; Start 07/05/21 at 09:00 Carvedilol (Coreg) 12.5 mg BIDWMEALS PO Last administered on 07/05/21 10:02; Start 07/04/21 at 21:00 Vitamin D (Vitamin D3) 1,000 unit DAILY PO Last administered on 07/05/21at 10:01; Start 07/05/21 at 09:00 Docusate Sodium (Colace) 100 mg BID PO Last administered on 07/05/21at 09:58; Start 07/04/21 at 21:00 Albuterol/ Ipratropium (Duoneb) 3 ml RTQID NEB ; Start 07/04/21 at 20:00; Status Cancel Lactobacillus Rhamnosus (Culturelle) 1 cap BID PO Last administered on 07/05/21at 09:58; Start 07/04/21 at 21:00 Tamsulosin HCl (Flomax) 0.4 mg DAILY PO Last administered on 07/05/21at 10:00; Start 07/05/21 at 09:00 Gabapentin (Neurontin) 600 mg BID PO Last administered on 07/05/21at 10:01; Start 07/04/21 at 21:00; Stop 07/05/21 at 13:59; Status DC Non-Formulary Medication (Ipratropium/ Albuterol Sulfate (Combivent Respimat Inhal)) 1 inh QID IH ; Start 07/04/21 at 21:00; Status UNV Pregabalin (Lyrica) 150 mg BID PO Last administered on 07/05/21at 10:00; Start 07/04/21 at 21:00 Methylprednisolone Sodium Succinate (SOLU-Medrol 40MG VIAL) 40 mg Q8HRS IV Last administered on 07/05/21at 13:20; Start 07/04/21 at 22:00 Thiamine Mononitrate (Vitamin B-1) 300 mg DAILY PO Last administered on 07/05/21at 10:01; Start 07/05/21 at 09:00 Zinc Sulfate (Orazinc) 220 mg DAILY PO Last administered on 07/05/21at 10:00; Start 07/05/21 at 09:00 Albuterol/ Ipratropium (Combivent Respimat 20-100 Mcg) 1 puff RTQID INH Last administered on 07/05/21at 12:49; Start 07/04/21 at 21:00 Allopurinol (Zyloprim) 100 mg DAILY PO ; Start 07/06/21 at 09:00 Gabapentin (Neurontin) 100 mg TID PO ; Start 07/05/21 at 14:00; Status Cancel Active Scripts Active Amlodipine Besylate 10 Mg Tablet 10 Mg PO DAILY 30 Days Culturelle (Lactobacillus Rhamnosus Gg) 1 Each Cap.sprink 1 Cap PO BID 30 Days Guaifenesin Dm Syrup (Guaifenesin/Dextromethorphan) 5 Ml Syrup 10 Ml PO PRN Q6HRS PRN 10 Days Klor-Con M20 (Potassium Chloride) 20 Meq Tab.er.prt 20 Meq PO DAILYWBKFT 30 Days Duoneb 0.5-3(2.5) Mg/3 Ml (Albuterol/Ipratropium) 3 Ml Ampul.neb 3 Ml NEB RTQID 30 Days Flovent 44MCG Hfa (Fluticasone Propionate) 10.6 Gm Aer.w.adap 1 Puff IH BID Advair 100-50 Diskus (Fluticasone/Salmeterol) 1 Each Disk.w.dev 1 Puff IH BID Combivent Respimat Inhal (Ipratropium/Albuterol Sulfate) 4 Gm Aer.w.adap 1 Inh IH QID Colace (Docusate Sodium) 100 Mg Capsule 100 Mg PO BID Reported Donepezil Hcl 5 Mg Tablet 1 Tab PO QHS Ibuprofen 800 Mg Tablet 1 Tab PO TID Azelastine Hcl 137 Mcg/0.137 Ml Greer.pump 2 Greer NS BID 30 Days Flomax (Tamsulosin Hcl) 0.4 Mg Cap.er.24h 1 Cap PO DAILY Lyrica (Pregabalin) 150 Mg Capsule 1 Cap PO BID Atorvastatin Calcium 40 Mg Tablet 1 Tab PO DAILY Allopurinol 300 Mg Tablet 1 Tab PO DAILY Coreg (Carvedilol) 12.5 Mg Tablet 1 Tab PO BID Fish Oil 1,400 Mg Softgel ([place]-3/Dha/Epa/Fish Oil) 1 Each Capsule.dr 1 Each PO DAILY Lasix (Furosemide) 40 Mg Tablet 1 Tab PO DAILY Aspirin Ec (Aspirin) 81 Mg Tablet.dr 1 Tab PO HS Centrum Silver Tablet (Multivits-Min/Fa/Lycopene/Lut) 1 Each Tablet 1 Each PO Nitrostat (Nitroglycerin) 0.4 Mg Tab.subl 0.4 Mg SL PRN Q5MIN PRN Vitamin D (Cholecalciferol (Vitamin D3)) 1,000 Unit Tablet 1,000 Unit PO DAILY Allergies Allergies: Coded Allergies: No Known Drug Allergies (Unverified , 12/21/18) ROS PSYCHOLOGICAL ROS: No: Hallucinations Eyes: No Loss of vision HEENT: No: Epistaxis Respiratory: YES: Shortness of breath Cardiovascular: No Chest Pain Genitourinary: No Hematuria Neurological: No Seizures Skin: No Rash Physical Exam General: Alert, No acute distress HEENT: Atraumatic Lungs: Other (Bilateral basal crepitations) Heart: Regular rate Abdomen: Soft Extremities: Other (1-2+ pitting edema) Neuro: Normal speech Psych/Mental Status: Mood NL Vitals VITALS Vital Signs Date Time Temp Pulse Resp B/P (MAP) Pulse Ox O2 Delivery O2 Flow Rate FiO2 07/05/21 11:00 97.4 60 18 137/56 (83) 96 Venturi Mask 15.0 97.4 Labs Labs Laboratory Tests Test 07/04/21 14:15 07/04/21 14:31 07/04/21 16:26 07/05/21 01:15 White Blood Count 6.7 x10^3/uL (4.0-11.0) Red Blood Count 3.88 x10^6/uL (4.30-5.70) Hemoglobin 11.1 g/dL (13.0-17.5) Hematocrit 35.2 % (39.0-53.0) Mean Corpuscular Volume 91 fL (79-100) Mean Corpuscular Hemoglobin 29 pg (25-35) Mean Corpuscular Hemoglobin Concent 32 g/dL (31-37) Red Cell Distribution Width 16.1 % (11.5-14.5) Platelet Count 149 x10^3/uL (140-400) Neutrophils (%) (Auto) 72 % (31-73) Lymphocytes (%) (Auto) 16 % (24-48) Monocytes (%) (Auto) 8 % (0-9) Eosinophils (%) (Auto) 2 % (0-3) Basophils (%) (Auto) 1 % (0-3) Neutrophils # (Auto) 4.8 x10^3/uL (1.8-7.7) Lymphocytes # (Auto) 1.1 x10^3/uL (1.0-4.8) Monocytes # (Auto) 0.6 x10^3/uL (0.0-1.1) Eosinophils # (Auto) 0.2 x10^3/uL (0.0-0.7) Basophils # (Auto) 0.1 x10^3/uL (0.0-0.2) Sodium Level 150 mmol/L (136-145) Potassium Level 4.6 mmol/L (3.5-5.1) Chloride Level 110 mmol/L (98-107) Carbon Dioxide Level 29 mmol/L (21-32) Anion Gap 11 (6-14) Blood Urea Nitrogen 20 mg/dL (8-26) Creatinine 1.7 mg/dL (0.7-1.3) Estimated GFR (Cockcroft-Gault) 38.6 BUN/Creatinine Ratio 12 (6-20) Glucose Level 124 mg/dL (70-99) Calcium Level 8.7 mg/dL (8.5-10.1) Total Bilirubin 0.9 mg/dL (0.2-1.0) Aspartate Amino Transf (AST/SGOT) 13 U/L (15-37) Alanine Aminotransferase (ALT/SGPT) 15 U/L (16-63) Alkaline Phosphatase 107 U/L (46-116) Troponin I High Sensitivity 15 ng/L (4-75) 16 ng/L (4-75) 13 ng/L (4-75) NL-Vhm-R-Type Natriuretic Peptide 1022 pg/mL (0-449) Total Protein 6.5 g/dL (6.4-8.2) Albumin 3.1 g/dL (3.4-5.0) Albumin/Globulin Ratio 0.9 (1.0-1.7) Coronavirus (COVID-19)(PCR) Not detected (NOT DETECTD) SARS-CoV-2 Antigen (Rapid) Negative (NEGATIVE) O2 Saturation 81 % (92-99) Arterial Blood pH 7.35 (7.35-7.45) Arterial Blood pCO2 at Patient Temp 52 mmHg (35-46) Arterial Blood pO2 at Patient Temp 46 mmHg (65-108) Arterial Blood HCO3 28 mmol/L (21-28) Arterial Blood Base Excess 1 mmol/L (-3-3) Oxyhemoglobin 80.4 % Methemoglobin 0.6 % (0.0-1.9) Carbon Monoxide, Quantitative 0.2 % (0.0-1.9) Test 07/05/21 05:45 White Blood Count 5.7 x10^3/uL (4.0-11.0) Red Blood Count 3.66 x10^6/uL (4.30-5.70) Hemoglobin 10.6 g/dL (13.0-17.5) Hematocrit 33.0 % (39.0-53.0) Mean Corpuscular Volume 90 fL (79-100) Mean Corpuscular Hemoglobin 29 pg (25-35) Mean Corpuscular Hemoglobin Concent 32 g/dL (31-37) Red Cell Distribution Width 15.4 % (11.5-14.5) Platelet Count 142 x10^3/uL (140-400) Neutrophils (%) (Auto) 88 % (31-73) Lymphocytes (%) (Auto) 11 % (24-48) Monocytes (%) (Auto) 1 % (0-9) Eosinophils (%) (Auto) 0 % (0-3) Basophils (%) (Auto) 0 % (0-3) Neutrophils # (Auto) 5.1 x10^3/uL (1.8-7.7) Lymphocytes # (Auto) 0.6 x10^3/uL (1.0-4.8) Monocytes # (Auto) 0.1 x10^3/uL (0.0-1.1) Eosinophils # (Auto) 0.0 x10^3/uL (0.0-0.7) Basophils # (Auto) 0.0 x10^3/uL (0.0-0.2) Sodium Level 147 mmol/L (136-145) Potassium Level 4.5 mmol/L (3.5-5.1) Chloride Level 108 mmol/L (98-107) Carbon Dioxide Level 27 mmol/L (21-32) Anion Gap 12 (6-14) Blood Urea Nitrogen 23 mg/dL (8-26) Creatinine 1.7 mg/dL (0.7-1.3) Estimated GFR (Cockcroft-Gault) 38.6 Glucose Level 193 mg/dL (70-99) Calcium Level 8.1 mg/dL (8.5-10.1) Phosphorus Level 2.7 mg/dL (2.6-4.7) Magnesium Level 2.4 mg/dL (1.8-2.4) Laboratory Tests Test 07/04/21 14:31 07/04/21 16:26 07/05/21 01:15 07/05/21 05:45 O2 Saturation 81 % (92-99) Arterial Blood pH 7.35 (7.35-7.45) Arterial Blood pCO2 at Patient Temp 52 mmHg (35-46) Arterial Blood pO2 at Patient Temp 46 mmHg (65-108) Arterial Blood HCO3 28 mmol/L (21-28) Arterial Blood Base Excess 1 mmol/L (-3-3) Oxyhemoglobin 80.4 % Methemoglobin 0.6 % (0.0-1.9) Carbon Monoxide, Quantitative 0.2 % (0.0-1.9) Troponin I High Sensitivity 16 ng/L (4-75) 13 ng/L (4-75) White Blood Count 5.7 x10^3/uL (4.0-11.0) Red Blood Count 3.66 x10^6/uL (4.30-5.70) Hemoglobin 10.6 g/dL (13.0-17.5) Hematocrit 33.0 % (39.0-53.0) Mean Corpuscular Volume 90 fL (79-100) Mean Corpuscular Hemoglobin 29 pg (25-35) Mean Corpuscular Hemoglobin Concent 32 g/dL (31-37) Red Cell Distribution Width 15.4 % (11.5-14.5) Platelet Count 142 x10^3/uL (140-400) Neutrophils (%) (Auto) 88 % (31-73) Lymphocytes (%) (Auto) 11 % (24-48) Monocytes (%) (Auto) 1 % (0-9) Eosinophils (%) (Auto) 0 % (0-3) Basophils (%) (Auto) 0 % (0-3) Neutrophils # (Auto) 5.1 x10^3/uL (1.8-7.7) Lymphocytes # (Auto) 0.6 x10^3/uL (1.0-4.8) Monocytes # (Auto) 0.1 x10^3/uL (0.0-1.1) Eosinophils # (Auto) 0.0 x10^3/uL (0.0-0.7) Basophils # (Auto) 0.0 x10^3/uL (0.0-0.2) Sodium Level 147 mmol/L (136-145) Potassium Level 4.5 mmol/L (3.5-5.1) Chloride Level 108 mmol/L (98-107) Carbon Dioxide Level 27 mmol/L (21-32) Anion Gap 12 (6-14) Blood Urea Nitrogen 23 mg/dL (8-26) Creatinine 1.7 mg/dL (0.7-1.3) Estimated GFR (Cockcroft-Gault) 38.6 Glucose Level 193 mg/dL (70-99) Calcium Level 8.1 mg/dL (8.5-10.1) Phosphorus Level 2.7 mg/dL (2.6-4.7) Magnesium Level 2.4 mg/dL (1.8-2.4) Assessment/Plan Assessment/Plan 1. Acute hypoxic respiratory failure secondary to combination of acute on chronic diastolic heart failure and COPD exacerbation. Symptoms improved since admission. 2. Acute on chronic diastolic heart failure: Improved with Lasix given in ED. We will give another dose today. 2D echo in June 2019 showed normal left ventricle systolic function with EF 55%. 3. Coronary artery disease s/p PCI/PING to RCA with cardiac catheterization 06/2019 showing patent stent. He is presently stable and chest pain-free. Continue current secondary prevention measures. 4. Peripheral artery disease s/p aortoiliac bypass surgery, clinically stable 5. Hypertension: Controlled 6. Hyperlipidemia: Continue statins Thank you for your consultation FACUNDO HUA MD Jul 05, 2021 14:25
[2021-07-05] MEDS ORDERED: FUROSEMIDE 40 MG/4 ML VIAL. IVP ONE (15:45)
[2021-07-05] MEDS ORDERED: ALBUTEROL SULFATE 2.5 MG/3 ML NEBU. NEB PRN (17:30)
[2021-07-05] MEDS: BUDESONIDE 0.5 MG/2 ML NEBU. NEB SCH (20:52)
[2021-07-05] MEDS: ASPIRIN ENTERIC COATED 81 MG TABLET.DR. PO SCH (21:00)
[2021-07-06 03:04] VITALS: BP 134/52
[2021-07-06] MEDS: methylPREDNISolone SOD SUCC PF 40 MG/ML VIAL. IV SCH (05:35)
[2021-07-06 07:00] VITALS: BP 125/42
[2021-07-06 07:16] LABS: BASO % 0 % (0-3); EOS % 0 % (0-3); HEMATOCRIT 31.7 % (39.0-53.0); HEMOGLOBIN 10.1 g/dL (13.0-17.5); LYMPH # 0.8 x10^3/uL (1.0-4.8); LYMPH % 10 % (24-48); MEAN CORPUSCULAR HEMOGLOBIN 29 pg (25-35); MEAN CORPUSCULAR HGB CONC 32 g/dL (31-37); MEAN CORPUSCULAR VOLUME 90 fL (79-100); MONO # 0.2 x10^3/uL (0.0-1.1); MONO % 3 % (0-9); NEUT # 7.7 x10^3/uL (1.8-7.7); NEUT % 88 % (31-73); PLATELET COUNT 161 x10^3/uL (140-400); RED BLOOD COUNT 3.53 x10^6/uL (4.30-5.70); RED CELL DISTRIBUTION WIDTH 15.8 % (11.5-14.5); WHITE BLOOD COUNT 8.8 x10^3/uL (4.0-11.0)
[2021-07-06 07:26] LABS: CALCIUM 8.3 mg/dL (8.5-10.1); CREATININE 1.7 mg/dL (0.7-1.3); GFR 38.6; MAGNESIUM 2.5 mg/dL (1.8-2.4); POTASSIUM 4.2 mmol/L (3.5-5.1)
[2021-07-06] MEDS: ZINC SULFATE 220 MG CAPSULE. PO SCH (09:45)
[2021-07-06] MEDS: THIAMINE 100 MG TABLET. PO SCH (09:45)
[2021-07-06] MEDS: LACTOBACILLUS RHAMNOSUS GG 1 CAPSULE. PO SCH ×2 (09:46→21:20)
[2021-07-06] MEDS: CHOLECALCIFEROL (VITAMIN D3) 1,000 UNIT TABLET PO SCH (09:46)
[2021-07-06] MEDS: DOCUSATE SODIUM 100 MG CAPSULE. PO SCH ×2 (09:46→21:20)
[2021-07-06] MEDS: PREGABALIN 75 MG CAPSULE PO SCH ×2 (09:46→21:20)
[2021-07-06] MEDS: PANTOPRAZOLE 40 MG TABLET.DR. PO SCH (09:47)
[2021-07-06] MEDS: TAMSULOSIN 0.4 MG CAP.ER.24H. PO SCH (09:47)
[2021-07-06] MEDS: CARVEDILOL 12.5 MG TABLET. PO SCH ×2 (09:49→17:24)
[2021-07-06] MEDS: ATORVASTATIN CALCIUM 40 MG TABLET. PO SCH (09:49)
[2021-07-06] MEDS: ENOXAPARIN 30 MG/0.3 ML SYRINGE. SQ SCH (09:51)
[2021-07-06] MEDS: ALLOPURINOL 100 MG TABLET. PO SCH (09:51)
[2021-07-06] MEDS: IPRATROPIUM/ALBUTEROL 20/100mcg/INH INHALER. INH SCH ×4 (09:55→21:04)
[2021-07-06 10:55] VITALS: BP 145/56
--- NOTE | 2021-07-06 11:09 | PDOC ---
[employer] PROGRESS NOTE Date of Service DOS: DATE: 07/06/21 TIME: 11:07 Chief Complaint Chief Complaint Shortness of breath - with diffuse interstitial infiltrates and pleural effusions likely COPD + CHF. (Previously had COVID 04 March 2020, and since vaccinated.) Acute hypoxic respiratory failure - Wean O2 as tolerated. Recently discharged on O2, needs have increased Asthma - cont nebs CAD - cont cardiac meds dCHF - clear this is an acute exacerbation with COPD as well. Will consult cardiology High Cholesterol - cont statin Hypertension - cont meds FER on CPAP - nocturnal CPAP Chronic back pain s/p spinal stimulator - monitor KELBY on CKD - vasomotor nephropathy from sepsis, given scant IVF given CHF history FEN - Cardiac diet PPX - lovenox FULL CODE Dispo - inpatient. continue to monitor symptoms and course. Mr Teran is an 84 yo M w/ PMHx Asthma, CAD, dCHF, High Cholesterol, Hypertension, FER on CPAP, chronic back pain s/p spinal stimulator, former smoker, quitted smoking in 2008 who p/w worsening shortness of breath and weakness over the past 3 days. He reports weakness primarily in his bilateral lower extremities. He states his symptoms are worsened with exertion. History of Present Illness History of Present Illness Mr Teran is an 86-year-old male history of COVID-19, nerve stimulator, former smoker, FER CPAP at night, CHF, COPD, CAD, asthma, high cholesterol, hypertension, PR with cardiac stents who comes in with shortness of breath for the last 4 days and has worsened the last 2 days. Patient normally does not wear oxygen at home. He did use a pulse oximeter which measured at 67% after he took his CPAP off. Overall he has been feeling fatigued but denies any fevers. Endorses what a cough but unable to produce anything. He does take 40 mg of Lasix by mouth every day. Patient is vaccinated for Covid. On arrival in the ED patient was saturating 76% on room air. He was given Lasix dose, steroids and breathing treatments and improved. Patient currently is on Venturi mask at 15 L and saturating 97%. Upon my encounter patient was speaking full sentences and was not more short of breath than usual. 07/05: ABG 7.35/52/46, rapid COVID-19 negative. Wore BIPAP overnight, still on venti-mask. Has some nasal pain, feels a little better than last night. 07/06: Wears home CPAP last night. Breathing little better. Still on 3 L/min O2 to maintain saturations 91%. he is now alert enough to recall that his home weight had increased from 185pounds to 198 pounds in the course of a week prior to coming to the hospital. Vitals/I&O Vitals/I&O: Vital Signs Date Time Temp Pulse Resp B/P (MAP) Pulse Ox O2 Delivery O2 Flow Rate FiO2 07/06/21 10:55 97.2 67 18 145/56 (85) 97 Nasal Cannula 4.0 97.2 I & O 07/05/21 07/05/21 07/06/21 15:00 23:00 07:00 Intake Total 480 ml 30 ml Balance 480 ml 30 ml Physical Exam General: Alert, No acute distress Heart: Regular rate Lungs: Wheezing, Crackles Abdomen: Soft Extremities: Other (1-2+ pitting edema) Labs Labs: Laboratory Tests Test 07/06/21 06:20 White Blood Count 8.8 x10^3/uL (4.0-11.0) Red Blood Count 3.53 x10^6/uL (4.30-5.70) Hemoglobin 10.1 g/dL (13.0-17.5) Hematocrit 31.7 % (39.0-53.0) Mean Corpuscular Volume 90 fL (79-100) Mean Corpuscular Hemoglobin 29 pg (25-35) Mean Corpuscular Hemoglobin Concent 32 g/dL (31-37) Red Cell Distribution Width 15.8 % (11.5-14.5) Platelet Count 161 x10^3/uL (140-400) Neutrophils (%) (Auto) 88 % (31-73) Lymphocytes (%) (Auto) 10 % (24-48) Monocytes (%) (Auto) 3 % (0-9) Eosinophils (%) (Auto) 0 % (0-3) Basophils (%) (Auto) 0 % (0-3) Neutrophils # (Auto) 7.7 x10^3/uL (1.8-7.7) Lymphocytes # (Auto) 0.8 x10^3/uL (1.0-4.8) Monocytes # (Auto) 0.2 x10^3/uL (0.0-1.1) Eosinophils # (Auto) 0.0 x10^3/uL (0.0-0.7) Basophils # (Auto) 0.0 x10^3/uL (0.0-0.2) Sodium Level 147 mmol/L (136-145) Potassium Level 4.2 mmol/L (3.5-5.1) Chloride Level 109 mmol/L (98-107) Carbon Dioxide Level 27 mmol/L (21-32) Anion Gap 11 (6-14) Blood Urea Nitrogen 31 mg/dL (8-26) Creatinine 1.7 mg/dL (0.7-1.3) Estimated GFR (Cockcroft-Gault) 38.6 Glucose Level 161 mg/dL (70-99) Calcium Level 8.3 mg/dL (8.5-10.1) Magnesium Level 2.5 mg/dL (1.8-2.4) Assessment and Plan Assessmemt and Plan Problems Medical Problems: (1) Acute exacerbation of CHF (congestive heart failure) Status: Acute (2) Hypoxia Status: Acute Comment Review of Relevant I have reviewed the following items ayla (where applicable) has been applied. Medications: Current Medications Medications (Trade) Dose Ordered Sig/Gavin Route PRN Reason Start Time Stop Time Status Last Admin Dose Admin Allopurinol (Zyloprim) 100 mg DAILY PO 07/06/21 09:00 07/06/21 09:51 Furosemide (Lasix) 40 mg 1X ONCE IVP 07/05/21 15:45 07/05/21 15:46 DC 07/05/21 16:03 Budesonide (Pulmicort) 0.5 mg RTBID NEB 07/05/21 20:00 07/05/21 20:52 Justifications for Admission Other Justification Shortness of breath GEORGETTE DOUGHERTY MD Jul 06, 2021 11:09
[2021-07-06] MEDS ORDERED: FUROSEMIDE 40 MG/4 ML VIAL. IVP ONE (11:15)
--- NOTE | 2021-07-06 12:34 | PDOC ---
PROGRESS NOTES Date of Service: DATE: 07/06/21 TIME: 12:32 Subjective Subjective Dyspnea improved, on 3 L O2 Objective Objective Vital Signs Date Time Temp Pulse Resp B/P (MAP) Pulse Ox O2 Delivery O2 Flow Rate FiO2 07/06/21 10:55 97.2 67 18 145/56 (85) 97 Nasal Cannula 4.0 97.2 Intake and Output 07/06/21 07:00 Intake Total 510 ml Balance 510 ml Intake Oral 510 ml # Voids 2 Physical Exam Abdomen: Soft Heart: Regular rate Extremities: Other (1-2+ pitting edema) General: Alert, No acute distress HEENT: Atraumatic Lungs: Other (Bilateral basal crepitations) MUSCULOSKELETAL: Other Neuro: Normal speech Psych/Mental Status: Mood NL Assessment Assessment 1. Acute hypoxic respiratory failure secondary to combination of acute on chronic diastolic heart failure and COPD exacerbation. Symptoms improved since admission. 2. Acute on chronic diastolic heart failure: Improved with diuresis. 2D echo in June 2019 showed normal left ventricle systolic function with EF 55%. 3. Coronary artery disease s/p PCI/PING to RCA with cardiac catheterization 06/2019 showing patent stent. He is presently stable and chest pain-free. Continue current secondary prevention measures. 4. Peripheral artery disease s/p aortoiliac bypass surgery, clinically stable 5. Hypertension: Controlled 6. Hyperlipidemia: Continue statins Plan Plan of Care Problems Medical Problems: (1) Acute exacerbation of CHF (congestive heart failure) Status: Acute (2) Hypoxia Status: Acute Comment Review of Relevant I have reviewed the following items ayla (where applicable) has been applied. Labs Laboratory Tests Test 07/06/21 06:20 White Blood Count 8.8 x10^3/uL (4.0-11.0) Red Blood Count 3.53 x10^6/uL (4.30-5.70) Hemoglobin 10.1 g/dL (13.0-17.5) Hematocrit 31.7 % (39.0-53.0) Mean Corpuscular Volume 90 fL (79-100) Mean Corpuscular Hemoglobin 29 pg (25-35) Mean Corpuscular Hemoglobin Concent 32 g/dL (31-37) Red Cell Distribution Width 15.8 % (11.5-14.5) Platelet Count 161 x10^3/uL (140-400) Neutrophils (%) (Auto) 88 % (31-73) Lymphocytes (%) (Auto) 10 % (24-48) Monocytes (%) (Auto) 3 % (0-9) Eosinophils (%) (Auto) 0 % (0-3) Basophils (%) (Auto) 0 % (0-3) Neutrophils # (Auto) 7.7 x10^3/uL (1.8-7.7) Lymphocytes # (Auto) 0.8 x10^3/uL (1.0-4.8) Monocytes # (Auto) 0.2 x10^3/uL (0.0-1.1) Eosinophils # (Auto) 0.0 x10^3/uL (0.0-0.7) Basophils # (Auto) 0.0 x10^3/uL (0.0-0.2) Sodium Level 147 mmol/L (136-145) Potassium Level 4.2 mmol/L (3.5-5.1) Chloride Level 109 mmol/L (98-107) Carbon Dioxide Level 27 mmol/L (21-32) Anion Gap 11 (6-14) Blood Urea Nitrogen 31 mg/dL (8-26) Creatinine 1.7 mg/dL (0.7-1.3) Estimated GFR (Cockcroft-Gault) 38.6 Glucose Level 161 mg/dL (70-99) Calcium Level 8.3 mg/dL (8.5-10.1) Magnesium Level 2.5 mg/dL (1.8-2.4) Medications Current Medications Albuterol Sulfate (Ventolin Neb Soln) 2.5 mg PRN Q4HRS PRN NEB SHORTNESS OF BREATH; Start 07/05/21 at 17:30 Allopurinol (Zyloprim) 100 mg DAILY PO Last administered on 07/06/21at 09:51; Start 07/06/21 at 09:00 Budesonide (Pulmicort) 0.5 mg RTBID NEB Last administered on 07/05/21at 20:52; Start 07/05/21 at 20:00 Furosemide (Lasix) 40 mg 1X ONCE IVP Last administered on 07/05/21at 16:03; Start 07/05/21 at 15:45; Stop 07/05/21 at 15:46; Status DC Furosemide (Lasix) 80 mg 1X ONCE IVP ; Start 07/06/21 at 11:15; Stop 07/06/21 at 11:16; Status DC Gabapentin (Neurontin) 100 mg TID PO ; Start 07/05/21 at 14:00; Status Cancel Vitals/I & O Vital Sign - Last 24 Hours 07/05/21 07/05/21 07/05/21 07/05/21 15:00 18:06 19:00 20:25 Temp 98.6 97.5 98.6 97.5 Pulse 72 72 71 Resp 18 18 B/P (MAP) 134/55 (81) 134/55 128/49 (75) Pulse Ox 94 95 O2 Delivery Nasal Cannula Nasal Cannula Nasal Cannula O2 Flow Rate 4.0 4.0 4.0 07/05/21 07/05/21 07/06/21 07/06/21 20:55 23:12 03:04 07:00 Temp 97.9 98.0 98.0 97.9 98.0 98.0 Pulse 64 72 65 Resp 18 18 18 B/P (MAP) 139/49 (79) 134/52 (79) 125/42 (69) Pulse Ox 96 95 96 94 O2 Delivery Nasal Cannula Nasal Cannula BiPAP/CPAP Nasal Cannula O2 Flow Rate 4.0 4.0 4.0 07/06/21 07/06/21 07/06/21 07/06/21 08:00 09:48 09:49 10:55 Temp 97.2 97.2 Pulse 65 65 67 Resp 18 B/P (MAP) 125/42 125/42 145/56 (85) Pulse Ox 97 O2 Delivery Nasal Cannula Nasal Cannula O2 Flow Rate 4.0 4.0 Intake and Output 07/05/21 07/05/21 07/06/21 15:00 23:00 07:00 Intake Total 480 ml 30 ml Balance 480 ml 30 ml FACUNDO HUA MD Jul 06, 2021 12:34
--- NOTE | 2021-07-06 12:35 | RAD ---
EXAM: Chest CT without intravenous contrast. HISTORY: Pleural effusion. Hypoxia. TECHNIQUE: Computed tomographic images of the chest were obtained without contrast. Multiplanar refor matting was performed. *One or more of the following individualized dose reduction techniques were utilized for this examina tion: 1. Automated exposure control. 2. Adjustment of the mA and/or kV according to patient size. 3. Use of iterative reconstruction technique. COMPARISON: 06/23/2019. FINDINGS: The heart is mildly enlarged. There is a small pericardial effusion. There are small right greater than left pleural effusions. There is coronary artery calcification. There is aortic and aort ic arch great vessel calcified atherosclerotic plaque. There are calcified and partially calcified me diastinal lymph nodes due to healed granulomatous disease. No pathologically enlarged lymph node is s een. There is no pneumothorax. There is bilateral basilar and posterior dependent atelectasis. There is mi ld emphysema. There are nonspecific groundglass opacities within the lungs in a peripheral and lower lobe distribution. There is no suspicious hepatic lesion. The gallbladder is contracted. There is a small left adrenal n odule. There is suspected renal atrophy. There is a small fat-containing supraumbilical hernia. There are dorsal column stimulator leads within the thoracic central canal. There is degenerative change i nvolving the visualized spine. There is no acute osseous finding. There is instrumented anterior and interbody fusion at the lower cervical levels. IMPRESSION: 1. Small right greater than left pleural effusions with bilateral posterior dependent and basilar ate lectasis. 2. Mild emphysema and nonspecific groundglass opacity suggesting trace congestion. There is no consol idated infiltrate or suspicious pulmonary nodule. 3. Cardiomegaly and small pericardial effusion. 4. Stable small left adrenal nodule, likely a benign adenoma. Electronically signed by: Karlie Smith MD (07/06/2021 12:32 PM) [facility]
[2021-07-06 15:00] VITALS: BP 126/47
[2021-07-06 19:25] VITALS: BP 136/45
[2021-07-06] MEDS: BUDESONIDE 0.5 MG/2 ML NEBU. NEB SCH (21:04)
[2021-07-06] MEDS: ASPIRIN ENTERIC COATED 81 MG TABLET.DR. PO SCH (21:20)
[2021-07-06 21:53] LABS: BILIRUBIN,URINE NEGATIVE (NEG); CLARITY,URINE CLEAR; COLOR,URINE YELLOW; NITRITE,URINE NEGATIVE (NEG); PROTEIN,URINE NEGATIVE (NEG-TRACE); UROBILINOGEN,URINE 0.2 mg/dL (0.2 mg/dL)
[2021-07-06 21:59] LABS: BACTERIA,URINE 0 /HPF (0-FEW); RBC,URINE 0 /HPF (0-2); WBC,URINE OCC /HPF (0-4)
[2021-07-06 22:00] LABS: HYALINE CASTS, URINE FEW /HPF
[2021-07-06 23:32] VITALS: BP 131/44
[2021-07-07 03:11] LABS: HEMOGLOBIN A1C 5.6 % (4.8-5.6)
[2021-07-07 03:23] VITALS: BP 124/42
[2021-07-07 06:43] LABS: CALCIUM 8.1 mg/dL (8.5-10.1); CREATININE 1.6 mg/dL (0.7-1.3); GFR 41.4; MAGNESIUM 2.5 mg/dL (1.8-2.4); POTASSIUM 3.7 mmol/L (3.5-5.1)
[2021-07-07 06:54] LABS: BASO % 0 % (0-3); EOS % 0 % (0-3); HEMATOCRIT 31.1 % (39.0-53.0); HEMOGLOBIN 9.9 g/dL (13.0-17.5); LYMPH % 12 % (24-48); MEAN CORPUSCULAR HEMOGLOBIN 29 pg (25-35); MEAN CORPUSCULAR HGB CONC 32 g/dL (31-37); MEAN CORPUSCULAR VOLUME 90 fL (79-100); MONO # 0.5 x10^3/uL (0.0-1.1); MONO % 7 % (0-9); NEUT # 6.5 x10^3/uL (1.8-7.7); NEUT % 82 % (31-73); PLATELET COUNT 162 x10^3/uL (140-400); RED BLOOD COUNT 3.44 x10^6/uL (4.30-5.70); RED CELL DISTRIBUTION WIDTH 15.4 % (11.5-14.5)
[2021-07-07 07:00] VITALS: BP 132/53
[2021-07-07] MEDS: BUDESONIDE 0.5 MG/2 ML NEBU. NEB SCH ×2 (07:43→18:26)
[2021-07-07] MEDS: CARVEDILOL 12.5 MG TABLET. PO SCH (08:00)
[2021-07-07] MEDS: IPRATROPIUM/ALBUTEROL 20/100mcg/INH INHALER. INH SCH ×4 (09:13→21:08)
[2021-07-07] MEDS: PREGABALIN 75 MG CAPSULE PO SCH ×2 (09:14→21:09)
[2021-07-07] MEDS: ENOXAPARIN 30 MG/0.3 ML SYRINGE. SQ SCH (09:14)
[2021-07-07] MEDS: PANTOPRAZOLE 40 MG TABLET.DR. PO SCH (09:14)
[2021-07-07] MEDS: ATORVASTATIN CALCIUM 40 MG TABLET. PO SCH (09:14)
[2021-07-07] MEDS: ZINC SULFATE 220 MG CAPSULE. PO SCH (09:14)
[2021-07-07] MEDS: THIAMINE 100 MG TABLET. PO SCH (09:15)
[2021-07-07] MEDS: DOCUSATE SODIUM 100 MG CAPSULE. PO SCH ×2 (09:15→21:00)
[2021-07-07] MEDS: CHOLECALCIFEROL (VITAMIN D3) 1,000 UNIT TABLET PO SCH (09:15)
[2021-07-07] MEDS: TAMSULOSIN 0.4 MG CAP.ER.24H. PO SCH (09:17)
[2021-07-07] MEDS: ALLOPURINOL 100 MG TABLET. PO SCH (09:17)
[2021-07-07] MEDS: LACTOBACILLUS RHAMNOSUS GG 1 CAPSULE. PO SCH ×2 (09:18→21:10)
--- NOTE | 2021-07-07 10:45 | PDOC ---
[facility] INSTALLATION ENGINEER 07/07/21 1045: CARDIO Progress Notes Date and Time Date of Service 07/07/21 Time of Evaluation 1045 Subjective Subjective: No Chest Pain, No Palpitations, Other (breathing better) Vitals Vitals Vital Signs Date Time Temp Pulse Resp B/P (MAP) Pulse Ox O2 Delivery O2 Flow Rate FiO2 07/07/21 09:00 61 124/42 07/07/21 08:00 Nasal Cannula 4.0 07/07/21 07:43 95 07/07/21 07:00 97.6 20 97.6 Weight Weight [ ] Input and Output Intake and Output Intake and Output 07/07/21 07:00 Intake Total 1230 ml Balance 1230 ml Intake Oral 1230 ml # Voids 2 Laboratory Labs Laboratory Tests Test 07/06/21 21:45 07/07/21 05:30 Urine Collection Type Unknown Urine Color Yellow Urine Clarity Clear Urine pH 5.0 (<5.0-8.0) Urine Specific [place] 1.010 (1.000-1.030) Urine Protein Negative mg/dL (NEG-TRACE) Urine Glucose (UA) Negative mg/dL (NEG) Urine Ketones (Stick) Negative mg/dL (NEG) Urine Blood Negative (NEG) Urine Nitrite Negative (NEG) Urine Bilirubin Negative (NEG) Urine Urobilinogen Dipstick 0.2 mg/dL (0.2 mg/dL) Urine Leukocyte Esterase Negative (NEG) Urine RBC 0 /HPF (0-2) Urine WBC Occ /HPF (0-4) Urine Squamous Epithelial Cells Few /LPF Urine Bacteria 0 /HPF (0-FEW) Urine Hyaline Casts Few /HPF Urine Mucus Slight /LPF White Blood Count 8.0 x10^3/uL (4.0-11.0) Red Blood Count 3.44 x10^6/uL (4.30-5.70) Hemoglobin 9.9 g/dL (13.0-17.5) Hematocrit 31.1 % (39.0-53.0) Mean Corpuscular Volume 90 fL (79-100) Mean Corpuscular Hemoglobin 29 pg (25-35) Mean Corpuscular Hemoglobin Concent 32 g/dL (31-37) Red Cell Distribution Width 15.4 % (11.5-14.5) Platelet Count 162 x10^3/uL (140-400) Neutrophils (%) (Auto) 82 % (31-73) Lymphocytes (%) (Auto) 12 % (24-48) Monocytes (%) (Auto) 7 % (0-9) Eosinophils (%) (Auto) 0 % (0-3) Basophils (%) (Auto) 0 % (0-3) Neutrophils # (Auto) 6.5 x10^3/uL (1.8-7.7) Lymphocytes # (Auto) 1.0 x10^3/uL (1.0-4.8) Monocytes # (Auto) 0.5 x10^3/uL (0.0-1.1) Eosinophils # (Auto) 0.0 x10^3/uL (0.0-0.7) Basophils # (Auto) 0.0 x10^3/uL (0.0-0.2) Sodium Level 146 mmol/L (136-145) Potassium Level 3.7 mmol/L (3.5-5.1) Chloride Level 109 mmol/L (98-107) Carbon Dioxide Level 29 mmol/L (21-32) Anion Gap 8 (6-14) Blood Urea Nitrogen 35 mg/dL (8-26) Creatinine 1.6 mg/dL (0.7-1.3) Estimated GFR (Cockcroft-Gault) 41.4 Glucose Level 122 mg/dL (70-99) Calcium Level 8.1 mg/dL (8.5-10.1) Magnesium Level 2.5 mg/dL (1.8-2.4) Physical Exam HEENT: Neck Supple W Full Motion Chest: Symmetric LUNGS: Other (fine expiratory wheezes) Heart: RRR Abdomen: Soft N/T Extremities: No Edema Neurology: alert, oriented, follow commands Assessment Assessment 1. Acute hypoxic respiratory failure secondary to combination of acute on chronic diastolic heart failure and AE COPD 2. Acute on chronic diastolic heart failure: Improved with diuresis. Echo 06/2019 with preserved LV systolic function 3. CAD s/p PCI/PING to RCA with cardiac catheterization 06/2019 showing patent stent. Clinically stable, CP free. Continue current secondary prevention measures. 4. Peripheral artery disease s/p aortoiliac bypass surgery, clinically stable 5. Hypertension: Controlled 6. Hyperlipidemia: statin 7. Sinus bradycardia; lowest 36 overnight. no pauses 8. CKD Recommendations Decrease Coreg with bradycardia Echo pending Resume oral Lasix with potassium replacement Secondary prevention Supportive care Justicifation of Admission Dx: Justifications for Admission: Justification of Admission Dx: Yes Respiratory Failure: Severe Resp Distress LIA YARBROUGH MD 07/07/212127: CARDIO Progress Notes Plan Plan The patient was seen and interviewed as well as examined at the bedside. The chart was reviewed. The case was discussed. Agree with the plan of care. He would benefit from pulmonary evaluation inpt or expedited outpt. Thanks JUSTICE SOLORIO APRN Jul 07, 2021 10:45 LIA YARBROUGH MD Jul 07, 2021 21:28
[2021-07-07 11:00] VITALS: BP 129/48
--- NOTE | 2021-07-07 12:49 | PDOC ---
[facility] PROGRESS NOTE Date of Service DOS: DATE: 07/07/21 TIME: 12:48 Chief Complaint Chief Complaint Shortness of breath - with diffuse interstitial infiltrates and pleural effusions likely COPD + CHF. (Previously had COVID 04 March 2020, and since vaccinated.) Acute hypoxic respiratory failure - Wean O2 as tolerated. Recently discharged on O2, needs have increased Asthma - cont nebs CAD - cont cardiac meds dCHF - clear this is an acute exacerbation with COPD as well. Will consult cardiology High Cholesterol - cont statin Hypertension - cont meds FER on CPAP - nocturnal CPAP Chronic back pain s/p spinal stimulator - monitor KELBY on CKD - vasomotor nephropathy from sepsis, given scant IVF given CHF history FEN - Cardiac diet PPX - lovenox FULL CODE Dispo - inpatient. continue to monitor symptoms and course. Mr Teran is an 84 yo M w/ PMHx Asthma, CAD, dCHF, High Cholesterol, Hypertension, FER on CPAP, chronic back pain s/p spinal stimulator, former smoker, quitted smoking in 2008 who p/w worsening shortness of breath and weakness over the past 3 days. He reports weakness primarily in his bilateral lower extremities. He states his symptoms are worsened with exertion. History of Present Illness History of Present Illness Mr Teran is an 86-year-old male history of COVID-19, nerve stimulator, former smoker, FER CPAP at night, CHF, COPD, CAD, asthma, high cholesterol, hypertension, [place] with cardiac stents who comes in with shortness of breath for the last 4 days and has worsened the last 2 days. Patient normally does not wear oxygen at home. He did use a pulse oximeter which measured at 67% after he took his CPAP off. Overall he has been feeling fatigued but denies any fevers. Endorses what a cough but unable to produce anything. He does take 40 mg of Lasix by mouth every day. Patient is vaccinated for Covid. On arrival in the ED patient was saturating 76% on room air. He was given Lasix dose, steroids and breathing treatments and improved. Patient currently is on Venturi mask at 15 L and saturating 97%. Upon my encounter patient was speaking full sentences and was not more short of breath than usual. 07/05: ABG 7.35/52/46, rapid COVID-19 negative. Wore BIPAP overnight, still on venti-mask. Has some nasal pain, feels a little better than last night. 07/06: Wears home CPAP last night. Breathing little better. Still on 3 L/min O2 to maintain saturations 91%. he is now alert enough to recall that his home weight had increased from 185pounds to 198 pounds in the course of a week prior to coming to the hospital. 07/07 Patient evaluate examined at bedside. He was resting in bed told me his breathing still feels somewhat congested and does have a bit of a cough. Will try one-time breathing treatments and Tessalon Perles. 6-minute walk ordered for today. Pending on those results may be able to discharge later today. Echo also still needs to be completed. Will discuss cardiology as well. Vitals/I&O Vitals/I&O: Vital Signs Date Time Temp Pulse Resp B/P (MAP) Pulse Ox O2 Delivery O2 Flow Rate FiO2 07/07/21 09:00 61 124/42 07/07/21 08:00 Nasal Cannula 4.0 07/07/21 07:43 95 07/07/21 07:00 97.6 20 97.6 I & O 07/06/21 07/06/21 07/07/21 15:00 23:00 07:00 Intake Total 480 ml 360 ml 390 ml Balance 480 ml 360 ml 390 ml Physical Exam General: Alert, No acute distress Heart: Regular rate Lungs: Wheezing, Crackles Abdomen: Soft Extremities: Other (1-2+ pitting edema) Labs Labs: Laboratory Tests Test 07/06/21 21:45 07/07/21 05:30 Urine Collection Type Unknown Urine Color Yellow Urine Clarity Clear Urine pH 5.0 (<5.0-8.0) Urine Specific [place] 1.010 (1.000-1.030) Urine Protein Negative mg/dL (NEG-TRACE) Urine Glucose (UA) Negative mg/dL (NEG) Urine Ketones (Stick) Negative mg/dL (NEG) Urine Blood Negative (NEG) Urine Nitrite Negative (NEG) Urine Bilirubin Negative (NEG) Urine Urobilinogen Dipstick 0.2 mg/dL (0.2 mg/dL) Urine Leukocyte Esterase Negative (NEG) Urine RBC 0 /HPF (0-2) Urine WBC Occ /HPF (0-4) Urine Squamous Epithelial Cells Few /LPF Urine Bacteria 0 /HPF (0-FEW) Urine Hyaline Casts Few /HPF Urine Mucus Slight /LPF White Blood Count 8.0 x10^3/uL (4.0-11.0) Red Blood Count 3.44 x10^6/uL (4.30-5.70) Hemoglobin 9.9 g/dL (13.0-17.5) Hematocrit 31.1 % (39.0-53.0) Mean Corpuscular Volume 90 fL (79-100) Mean Corpuscular Hemoglobin 29 pg (25-35) Mean Corpuscular Hemoglobin Concent 32 g/dL (31-37) Red Cell Distribution Width 15.4 % (11.5-14.5) Platelet Count 162 x10^3/uL (140-400) Neutrophils (%) (Auto) 82 % (31-73) Lymphocytes (%) (Auto) 12 % (24-48) Monocytes (%) (Auto) 7 % (0-9) Eosinophils (%) (Auto) 0 % (0-3) Basophils (%) (Auto) 0 % (0-3) Neutrophils # (Auto) 6.5 x10^3/uL (1.8-7.7) Lymphocytes # (Auto) 1.0 x10^3/uL (1.0-4.8) Monocytes # (Auto) 0.5 x10^3/uL (0.0-1.1) Eosinophils # (Auto) 0.0 x10^3/uL (0.0-0.7) Basophils # (Auto) 0.0 x10^3/uL (0.0-0.2) Sodium Level 146 mmol/L (136-145) Potassium Level 3.7 mmol/L (3.5-5.1) Chloride Level 109 mmol/L (98-107) Carbon Dioxide Level 29 mmol/L (21-32) Anion Gap 8 (6-14) Blood Urea Nitrogen 35 mg/dL (8-26) Creatinine 1.6 mg/dL (0.7-1.3) Estimated GFR (Cockcroft-Gault) 41.4 Glucose Level 122 mg/dL (70-99) Calcium Level 8.1 mg/dL (8.5-10.1) Magnesium Level 2.5 mg/dL (1.8-2.4) Assessment and Plan Assessmemt and Plan Problems Medical Problems: (1) Acute exacerbation of CHF (congestive heart failure) Status: Acute (2) Hypoxia Status: Acute Comment Review of Relevant I have reviewed the following items ayla (where applicable) has been applied. Justifications for Admission Other Justification Shortness of breath GEORGETTE GAMBINO MD Jul 07, 2021 12:49
[2021-07-07] MEDS: BENZONATATE 100 MG CAPSULE. PO SCH ×2 (13:43→21:10)
[2021-07-07 15:00] VITALS: BP 141/51
[2021-07-07] MEDS: CARVEDILOL 6.25 MG TABLET. PO SCH (17:00)
[2021-07-07] MEDS: POTASSIUM CHLORIDE 20 MEQ TABLET.ER. PO SCH (18:16)
[2021-07-07] MEDS: FUROSEMIDE 40 MG TABLET. PO SCH (18:17)
[2021-07-07 19:54] VITALS: BP 126/51
[2021-07-07] MEDS: ASPIRIN ENTERIC COATED 81 MG TABLET.DR. PO SCH (21:10)
[2021-07-07] MEDS ORDERED: CETIRIZINE HCL 10 MG TABLET. PO SCH (23:15)
[2021-07-07 23:36] VITALS: BP 135/56
[2021-07-08 03:11] VITALS: BP 152/51
[2021-07-08] MEDS: BUDESONIDE 0.5 MG/2 ML NEBU. NEB SCH (06:15)
[2021-07-08 07:00] VITALS: BP 153/62
--- NOTE | 2021-07-08 07:34 | CARD ---
MR#: [id number] Date of Study: 07/07/2021 Ordering Physician: YARITZA MARTINEZ, Referring Physician: YARITZA MARTINEZ, Tech: Jaylan Peralta [facility] AP[facility] REPORT EXAM: Two-dimensional and M-mode echocardiogram with Doppler and color Doppler. Other Information Quality : FairHR: 55bpm Rhythm : NSRTechnically limited study due to body habitus and smoking. INDICATION Congestive Heart Failure RISK FACTORS Hypertension Hyperlipidemia 2D DIMENSIONS Left Atrium(2D)4.2 (1.6-4.0cm)IVSd1.0 (0.7-1.1cm) Aortic Root(2D)3.5 (2.0-3.7cm)LVDd5.4 (3.9-5.9cm) LVOT Diameter2.0 (1.8-2.4cm)PWd1.0 (0.7-1.1cm) LA Gfkyrw79 (18-58mL)LVDs2.6 (2.5-4.0cm) FS (%) 51.1 %SV116.6 ml LVEF(%)81.9 (>50%) Aortic Valve AoV Peak John.104.7cm/sAoV VTI29.5cm AO Peak GR.4.4mmHgLVOT VTI 16.80cm AO Mean GR.3mmHgAI P 1/2 [id number] Mitral Valve MV E Owsutdvw65.1cm/sMV E Peak Gr.9mmHg MV DECEL [id number] A Ixjmfqqk01.0cm/s MV E Mean Gr.2mmHgE/A Ratio0.4 TDI Lateral E' P. V8.11cm/sMedial E' P. V5.66cm/s E/Lateral E'4.3E/Medial E'6.2 Tricuspid Valve TR P. Imjsggtb992sr/sTR Peak Gr.32mmHg Pulmonary Vein S1 Hsfwpjce80.5cm/sS2 Tarlvllq34.57cm/s D2 Nsppmlbp00.6cm/s LEFT VENTRICLE The left ventricle is normal size. There is normal left ventricular wall thickness. The left ventricu lar systolic function is normal. The ejection fraction is 55 to 60%. There is normal LV segmental wal l motion. Tissue Doppler imaging reveals moderate left ventricular diastolic dysfunction. No left adrian tricle thrombus noted on this study. There is no ventricular septal defect visualized. There is no le ft ventricular aneurysm. There is no mass noted in the left ventricle. RIGHT VENTRICLE The right ventricle is normal size. There is normal right ventricular wall thickness. The right ventr icular systolic function is normal. ATRIA The left atrium is mildly dilated. The right atrium size is normal. The interatrial septum is intact with no evidence for an atrial septal defect or patent foramen ovale as noted on 2-D or Doppler imagi ng. AORTIC VALVE The aortic valve is not well seen. Doppler and Color Flow revealed no significant aortic regurgitatio n. There is no significant aortic valvular stenosis. There is no aortic valvular vegetation. MITRAL VALVE The mitral valve is thickened but opens well. There is no evidence of mitral valve prolapse. There is no mitral valve stenosis. Doppler and Color-flow revealed trace to mild mitral regurgitation. TRICUSPID VALVE The tricuspid valve is normal in structure and function. Doppler and Color Flow revealed trace tricus pid regurgitation. The PA pressure was estimated at 40 mmHg. There is no tricuspid valve prolapse or vegetation. There is no tricuspid valve stenosis. PULMONIC VALVE The pulmonic valve is not well seen. Doppler and Color Flow revealed no pulmonic valvular regurgitati on. There is no pulmonic valvular stenosis. GREAT VESSELS The aortic root is normal in size. The ascending aorta is normal in size. The pulmonary artery is nor mal. The IVC is normal in size and collapses >50% with inspiration. PERICARDIAL EFFUSION There is no pleural effusion. There is no evidence of significant pericardial effusion. Critical Notification Critical Value: No <Conclusion> The left ventricular systolic function is normal. The ejection fraction is 55 to 60%. There is normal LV segmental wall motion. Tissue Doppler imaging reveals moderate left ventricular diastolic dysfunction. Trace to mild mitral regurgitation. Trace tricuspid regurgitation. The PA pressure was estimated at 40 mmHg. There is no evidence of significant pericardial effusion. Signed by : Werner Osman, Electronically Approved : 07/08/2021 07:34:23
[2021-07-08] MEDS: DOCUSATE SODIUM 100 MG CAPSULE. PO SCH (09:00)
[2021-07-08] MEDS: FUROSEMIDE 40 MG TABLET. PO SCH (09:18)
[2021-07-08] MEDS: ZINC SULFATE 220 MG CAPSULE. PO SCH (09:19)
[2021-07-08] MEDS: POTASSIUM CHLORIDE 20 MEQ TABLET.ER. PO SCH (09:19)
[2021-07-08] MEDS: CHOLECALCIFEROL (VITAMIN D3) 1,000 UNIT TABLET PO SCH (09:20)
[2021-07-08] MEDS: PANTOPRAZOLE 40 MG TABLET.DR. PO SCH (09:20)
[2021-07-08] MEDS: LACTOBACILLUS RHAMNOSUS GG 1 CAPSULE. PO SCH (09:21)
[2021-07-08] MEDS: TAMSULOSIN 0.4 MG CAP.ER.24H. PO SCH (09:21)
[2021-07-08] MEDS: ALLOPURINOL 100 MG TABLET. PO SCH (09:21)
[2021-07-08] MEDS: BENZONATATE 100 MG CAPSULE. PO SCH (09:22)
[2021-07-08] MEDS: PREGABALIN 75 MG CAPSULE PO SCH (09:23)
[2021-07-08] MEDS: ATORVASTATIN CALCIUM 40 MG TABLET. PO SCH (09:23)
[2021-07-08] MEDS: ENOXAPARIN 30 MG/0.3 ML SYRINGE. SQ SCH (09:24)
[2021-07-08] MEDS: THIAMINE 100 MG TABLET. PO SCH (09:24)
[2021-07-08] MEDS: CARVEDILOL 6.25 MG TABLET. PO SCH (09:25)
[2021-07-08] MEDS: IPRATROPIUM/ALBUTEROL 20/100mcg/INH INHALER. INH SCH ×2 (09:42→12:00)
[2021-07-08 11:00] VITALS: BP 112/46
[2021-07-08] MEDS ORDERED: CARV6.2511 PO (11:47)
--- NOTE | 2021-07-08 12:34 | SNU/HH DC ---
DISCHARGE WITH HOME HEALTH DISCHARGE INFORMATION: Discharge Date: Jul 08, 2021 Final Diagnosis: Problems Medical Problems: (1) Acute exacerbation of CHF (congestive heart failure) Status: Acute (2) Hypoxia Status: Acute Condition on Discharge: Stable CODE STATUS: Code Status: Full HOME HEALTH: Face to Face: I certify this patient is under my care and that I, or a nurse practitioner or physician's assistant professor of english working with me, had a face to face encounter that meets the physician face to face encounter requirements with this patient on []. RN For Eval/Treatment: Yes Physical Therapy For: Evalulation/Treatment Occupational Therapy For: Evaluation/Treatment Pt Meets Homebound Status: Poor coordination w/ amb., Unsteady balance w/ amb,, Extreme weakness w/ amb. POST DISCHARGE ORDERS: Activity Instructions for Disc: Activity as tolerated Weight Bearing Status after Di: Full weight bearing, As tolerated Bathing Instructions: Shower-keep dressing dry DIET AFTER DISCHARGE: Cardiac Wound/Incision Care: No wound care needed CHECKS AFTER DISCHARGE: Checks after discharge: Check blood press - daily, Weigh Yourself Daily FOLLOW-UP: Follow Up With: PCP within 2 weeks of discharge from hospital TREATMENT/EQUIPMENT ORDERS: Adaptive Equipment Issued: None, Front wheeled walker Discharge Respiratory Equipmen: Oxygen CERTIFICATION STATEMENT: Certification Statement: Certification Statement: Based on the above finding, I certify that this patient is confined to the home and needs intermittent half-way care, physical therapy and/or speech therapy, or continues to need occupational therapy.~ This patient is under my care, and I have initiated the establishment of the plan of care.~ This patient will be followed by myself or a community physician who will periodically review the plan of care. Home Meds Active Scripts Carvedilol (CARVEDILOL ) 6.25 Mg Tablet, 6.25 MG PO BIDWMEALS for htn for 30 Days, #60 TAB Prov:GEORGETTE GAMBINO MD 07/08/21 Amlodipine Besylate (AMLODIPINE BESYLATE) 10 Mg Tablet, 10 MG PO DAILY for HTN for 30 Days, #30 TAB Prov:GEORGETTE DOUGHERTY MD 07/07/19 Lactobacillus Rhamnosus Gg (CULTURELLE) 1 Each Cap.sprink, 1 CAP PO BID for SUPPLEMENT for 30 Days, #60 CAP Prov:AKIRA BECKWITH MD 07/07/19 Guaifenesin/Dextromethorphan (GUAIFENESIN DM SYRUP) 5 Ml Syrup, 10 ML PO PRN Q6HRS PRN for COUGH for 10 Days, #120 MISC Prov:AKIRA BECKWITH MD 07/07/19 Potassium Chloride (KLOR-CON M20) 20 Meq Tab.er.prt, 20 MEQ PO DAILYWBKFT for CHF for 30 Days, #30 TAB.SR Prov:AKIRA BECKWITH MD 07/07/19 Ipratropium/Albuterol Sulfate (DUONEB 0.5-3(2.5) MG/3 ML) 3 Ml Ampul.neb, 3 ML NEB RTQID for COPD for 30 Days, #120 EACH Prov:AKIRA BECKWITH MD 07/07/19 Fluticasone Propionate (FLOVENT 44MCG HFA) 10.6 Gm Aer.w.adap, 1 PUFF IH BID for COPD, #1 INHALER 2 Refills Prov:KARLOS HERNANDEZ MD 06/30/19 Fluticasone/Salmeterol (ADVAIR 100-50 DISKUS) 1 Each Disk.w.dev, 1 PUFF IH BID for bronchitis, #1 INHALER 1 Refill Prov:KARLOS HERNANDEZ MD 06/26/19 Ipratropium/Albuterol Sulfate (COMBIVENT RESPIMAT INHAL) 4 Gm Aer.w.adap, 1 INH IH QID for bronchitis, #1 INHALER Prov:KARLOS HERNANDEZ MD 06/26/19 Docusate Sodium (COLACE) 100 Mg Capsule, 100 MG PO BID, #60 CAP Prov:SHAN JENKINS MD 07/23/17 Reported Medications Donepezil Hcl (DONEPEZIL HCL) 5 Mg Tablet, 1 TAB PO QHS for memory 07/04/21 Ibuprofen (Ibuprofen) 800 Mg Tablet, 1 TAB PO TID for pain 07/04/21 Azelastine Hcl (AZELASTINE HCL) 137 Mcg/0.137 Ml [place].pump, 2 SPRAY NS BID for allergies for 30 Days, #30 ML 0 Refills 02/08/21 Tamsulosin Hcl (FLOMAX) 0.4 Mg Cap.er.24h, 1 CAP PO DAILY for BPH, #30 CAP 11 Refills 02/08/21 Pregabalin (LYRICA) 150 Mg Capsule, 1 CAP PO BID for neuropathy, #60 CAP 5 Refills 02/08/21 Atorvastatin Calcium (ATORVASTATIN CALCIUM) 40 Mg Tablet, 1 TAB PO DAILY for hld, #30 TAB 5 Refills 02/08/21 Allopurinol (ALLOPURINOL) 300 Mg Tablet, 1 TAB PO DAILY, #30 TAB 5 Refills 03/30/17 [place]-3/Dha/Epa/Fish Oil (FISH OIL 1,400 MG SOFTGEL) 1 Each Capsule.dr, 1 EACH PO DAILY 05/25/16 Furosemide (LASIX) 40 Mg Tablet, 1 TAB PO DAILY, #90 TAB 1 Refill 06/13/15 Aspirin (ASPIRIN EC) 81 Mg Tablet.dr, 1 TAB PO HS, #30 TAB 3 Refills 05/14/15 Multivits-Min/Fa/Lycopene/Lut (CENTRUM SILVER TABLET) 1 Each Tablet, 1 EACH PO 05/14/15 Nitroglycerin (NITROSTAT) 0.4 Mg Tab.subl, 0.4 MG SL PRN Q5MIN PRN for CHEST PAIN, BOTTLE 05/14/15 Cholecalciferol (Vitamin D3) (VITAMIN D) 1,000 Unit Tablet, 1000 UNIT PO DAILY 05/14/15 Discontinued Reported Medications Carvedilol (COREG ) 12.5 Mg Tablet, 1 TAB PO BID, #180 TAB 1 Refill 02/04/17 Gabapentin (GABAPENTIN) 600 Mg Tablet, 600 MG PO BID 10/05/13 GEORGETTE GAMBINO MD Jul 08, 2021 12:34
--- NOTE | 2021-07-08 12:37 | PDOC3 ---
[facility]-Discharge Summary Date of Admission: Date of Admission: Jul 04, 2021 Date of Discharge: Date of Discharge: Jul 08, 2021 Admission Diagnosis: Problems: (1) Acute exacerbation of CHF (congestive heart failure) Consults: Consults: Cardiology Hospital Course: Hospital Course: Chief Complaint Chief Complaint Shortness of breath - with diffuse interstitial infiltrates and pleural effusions likely COPD + CHF. (Previously had COVID 04 March 2020, and since vaccinated.) Acute hypoxic respiratory failure - Wean O2 as tolerated. Recently discharged on O2, needs have increased Asthma - cont nebs CAD - cont cardiac meds dCHF - clear this is an acute exacerbation with COPD as well. Will consult cardiology High Cholesterol - cont statin Hypertension - cont meds FER on CPAP - nocturnal CPAP Chronic back pain s/p spinal stimulator - monitor KELBY on CKD - vasomotor nephropathy from sepsis, given scant IVF given CHF history FEN - Cardiac diet PPX - lovenox FULL CODE Dispo - inpatient. continue to monitor symptoms and course. Mr Teran is an 84 yo M w/ PMHx Asthma, CAD, dCHF, High Cholesterol, Hypertension, FER on CPAP, chronic back pain s/p spinal stimulator, former smoker, quitted smoking in 2008 who p/w worsening shortness of breath and weakness over the past 3 days. He reports weakness primarily in his bilateral lower extremities. He states his symptoms are worsened with exertion. History of Present Illness History of Present Illness Mr Teran is an 86-year-old male history of COVID-19, nerve stimulator, former smoker, FER CPAP at night, CHF, COPD, CAD, asthma, high cholesterol, hypertension, [place] with cardiac stents who comes in with shortness of breath for the last 4 days and has worsened the last 2 days. Patient normally does not wear oxygen at home. He did use a pulse oximeter which measured at 67% after he took his CPAP off. Overall he has been feeling fatigued but denies any fevers. Endorses what a cough but unable to produce anything. He does take 40 mg of Lasix by mouth every day. Patient is vaccinated for Covid. On arrival in the ED patient was saturating 76% on room air. He was given Lasix dose, steroids and breathing treatments and improved. Patient currently is on Venturi mask at 15 L and saturating 97%. Upon my encounter patient was speaking full sentences and was not more short of breath than usual. 07/05: ABG 7.35/52/46, rapid COVID-19 negative. Wore BIPAP overnight, still on venti-mask. Has some nasal pain, feels a little better than last night. 07/06: Wears home CPAP last night. Breathing little better. Still on 3 L/min O2 to maintain saturations 91%. he is now alert enough to recall that his home weight had increased from 185pounds to 198 pounds in the course of a week prior to coming to the hospital. 07/07 Patient evaluate examined at bedside. He was resting in bed told me his breathing still feels somewhat congested and does have a bit of a cough. Will try one-time breathing treatments and Tessalon Perles. 6-minute walk ordered for today. Pending on those results may be able to discharge later today. Echo also still needs to be completed. Will discuss cardiology as well. 07/08 Evaluate examined at bedside. 2 L oxygen needed at home. Discharge today with home health. Greater than 30 minutes spent on discharge. Disposition: Disposition/Orders: D/C to Home w/ HH Activity: Activity: Resume previous activity Diet: Diet: Cardiac Medications: Home Meds Active Scripts Carvedilol (CARVEDILOL ) 6.25 Mg Tablet, 6.25 MG PO BIDWMEALS for htn for 30 Days, #60 TAB Prov:GEORGETTE GAMBINO MD 07/08/21 Amlodipine Besylate (AMLODIPINE BESYLATE) 10 Mg Tablet, 10 MG PO DAILY for HTN for 30 Days, #30 TAB Prov:GEORGETTE DOUGHERTY MD 07/07/19 Lactobacillus Rhamnosus Gg (CULTURELLE) 1 Each Cap.sprink, 1 CAP PO BID for SUPPLEMENT for 30 Days, #60 CAP Prov:AKIRA BECKWITH MD 07/07/19 Guaifenesin/Dextromethorphan (GUAIFENESIN DM SYRUP) 5 Ml Syrup, 10 ML PO PRN Q6HRS PRN for COUGH for 10 Days, #120 MISC Prov:AKIRA BECKWITH MD 07/07/19 Potassium Chloride (KLOR-CON M20) 20 Meq Tab.er.prt, 20 MEQ PO DAILYWBKFT for CHF for 30 Days, #30 TAB.SR Prov:AKIRA BECKWITH MD 07/07/19 Ipratropium/Albuterol Sulfate (DUONEB 0.5-3(2.5) MG/3 ML) 3 Ml Ampul.neb, 3 ML NEB RTQID for COPD for 30 Days, #120 EACH Prov:AKIRA BECKWITH MD 07/07/19 Fluticasone Propionate (FLOVENT 44MCG HFA) 10.6 Gm Aer.w.adap, 1 PUFF IH BID for COPD, #1 INHALER 2 Refills Prov:KARLOS HERNANDEZ MD 06/30/19 Fluticasone/Salmeterol (ADVAIR 100-50 DISKUS) 1 Each Disk.w.dev, 1 PUFF IH BID for bronchitis, #1 INHALER 1 Refill Prov:KARLOS HERNANDEZ MD 06/26/19 Ipratropium/Albuterol Sulfate (COMBIVENT RESPIMAT INHAL) 4 Gm Aer.w.adap, 1 INH IH QID for bronchitis, #1 INHALER Prov:KARLOS HERNANDEZ MD 06/26/19 Docusate Sodium (COLACE) 100 Mg Capsule, 100 MG PO BID, #60 CAP Prov:SHAN JENKINS MD 07/23/17 Reported Medications Donepezil Hcl (DONEPEZIL HCL) 5 Mg Tablet, 1 TAB PO QHS for memory 07/04/21 Ibuprofen (Ibuprofen) 800 Mg Tablet, 1 TAB PO TID for pain 07/04/21 Azelastine Hcl (AZELASTINE HCL) 137 Mcg/0.137 Ml [place].pump, 2 SPRAY NS BID for allergies for 30 Days, #30 ML 0 Refills 02/08/21 Tamsulosin Hcl (FLOMAX) 0.4 Mg Cap.er.24h, 1 CAP PO DAILY for BPH, #30 CAP 11 Refills 02/08/21 Pregabalin (LYRICA) 150 Mg Capsule, 1 CAP PO BID for neuropathy, #60 CAP 5 Refills 02/08/21 Atorvastatin Calcium (ATORVASTATIN CALCIUM) 40 Mg Tablet, 1 TAB PO DAILY for hld, #30 TAB 5 Refills 02/08/21 Allopurinol (ALLOPURINOL) 300 Mg Tablet, 1 TAB PO DAILY, #30 TAB 5 Refills 03/30/17 [place]-3/Dha/Epa/Fish Oil (FISH OIL 1,400 MG SOFTGEL) 1 Each Capsule., 1 EACH PO DAILY 05/25/16 Furosemide (LASIX) 40 Mg Tablet, 1 TAB PO DAILY, #90 TAB 1 Refill 06/13/15 Aspirin (ASPIRIN EC) 81 Mg Tablet.dr, 1 TAB PO HS, #30 TAB 3 Refills 05/14/15 Multivits-Min/Fa/Lycopene/Lut (CENTRUM SILVER TABLET) 1 Each Tablet, 1 EACH PO 05/14/15 Nitroglycerin (NITROSTAT) 0.4 Mg Tab.subl, 0.4 MG SL PRN Q5MIN PRN for CHEST PAIN, BOTTLE 05/14/15 Cholecalciferol (Vitamin D3) (VITAMIN D) 1,000 Unit Tablet, 1000 UNIT PO DAILY 05/14/15 Discontinued Reported Medications Carvedilol (COREG ) 12.5 Mg Tablet, 1 TAB PO BID, #180 TAB 1 Refill 02/04/17 Gabapentin (GABAPENTIN) 600 Mg Tablet, 600 MG PO BID 10/05/13 Scheduled Allopurinol (Allopurinol), 1 TAB PO DAILY, (Reported) Amlodipine Besylate (Amlodipine Besylate), 10 MG PO DAILY Aspirin (Aspirin Ec), 1 TAB PO HS, (Reported) Atorvastatin Calcium (Atorvastatin Calcium), 1 TAB PO DAILY, (Reported) Azelastine Hcl (Azelastine Hcl), 2 SPRAY NS BID, (Reported) Carvedilol (Carvedilol ), 6.25 MG PO BIDWMEALS Cholecalciferol (Vitamin D3) (Vitamin D), 1,000 UNIT PO DAILY, (Reported) Docusate Sodium (Colace), 100 MG PO BID Donepezil Hcl (Donepezil Hcl), 1 TAB PO QHS, (Reported) Fluticasone Propionate (Flovent 44MCG Hfa), 1 PUFF IH BID Fluticasone/Salmeterol (Advair 100-50 Diskus), 1 PUFF IH BID Furosemide (Lasix), 1 TAB PO DAILY, (Reported) Ibuprofen (Ibuprofen), 1 TAB PO TID, (Reported) Ipratropium/Albuterol Sulfate (Combivent Respimat Inhal), 1 INH IH QID Ipratropium/Albuterol Sulfate (Duoneb 0.5-3(2.5) Mg/3 Ml), 3 ML NEB RTQID Lactobacillus Rhamnosus Gg (Culturelle), 1 CAP PO BID [place]-3/Dha/Epa/Fish Oil (Fish Oil 1,400 Mg Softgel), 1 EACH PO DAILY, (Reported) Potassium Chloride (Klor-Con M20), 20 MEQ PO DAILYWBKFT Pregabalin (Lyrica), 1 CAP PO BID, (Reported) Tamsulosin Hcl (Flomax), 1 CAP PO DAILY, (Reported) Scheduled PRN Guaifenesin/Dextromethorphan (Guaifenesin Dm Syrup), 10 ML PO PRN Q6HRS PRN for COUGH Nitroglycerin (Nitrostat), 0.4 MG SL PRN Q5MIN PRN for CHEST PAIN, (Reported) Miscellaneous Medications Multivits-Min/Fa/Lycopene/Lut (Centrum Silver Tablet), 1 EACH PO, (Reported) Discontinued Medications Carvedilol (Coreg ), 1 TAB PO BID, (Reported) Gabapentin (Gabapentin), 600 MG PO BID, (Reported) Discontinued Reason: not taking Justicifation of Admission Dx: Justifications for Admission: Justification of Admission Dx: Yes Respiratory Failure: Severe Resp Distress GEORGETTE GAMBINO MD Jul 08, 2021 12:36
--- NOTE | 2021-07-08 13:19 | PDOC ---
ERIK SOLORIOILY TIMOTEO 07/08/21 1319: CARDIO Progress Notes Date and Time Date of Service 07/08/21 Time of Evaluation 1015 Subjective Subjective: No Chest Pain, No Palpitations, Other (breathing improved. c/o cough) Vitals Vitals Vital Signs Date Time Temp Pulse Resp B/P (MAP) Pulse Ox O2 Delivery O2 Flow Rate FiO2 07/08/21 11:00 98.4 50 18 112/46 (68) 95 Nasal Cannula 3.0 98.4 Weight Weight [ ] Input and Output Intake and Output Intake and Output 07/08/21 07:00 Intake Total 920 ml Balance 920 ml Intake Oral 920 ml # Voids 3 # Bowel Movements 1 Physical Exam HEENT: Neck Supple W Full Motion Chest: Symmetric LUNGS: Other (fine expiratory wheezes) Heart: RRR Abdomen: Soft N/T Extremities: No Edema Neurology: alert, oriented, follow commands Assessment Assessment 1. Acute hypoxic respiratory failure secondary to combination of acute on chronic diastolic heart failure and AE COPD. requiring O2 2. Acute on chronic diastolic heart failure: Improved with diuresis. Echo with preserved LV systolic function 3. CAD s/p PCI/PING to RCA with cardiac catheterization 06/2019 showing patent stent. Clinically stable, CP free. 4. Peripheral artery disease s/p aortoiliac bypass surgery, clinically stable 5. Hypertension: Controlled 6. Hyperlipidemia: statin 7. Sinus bradycardia; BB decreased 8. CKD; Cr stable Recommendations Lasix therapy Secondary prevention Pulmonary evaluation Supportive care Justicifation of Admission Dx: Justifications for Admission: Justification of Admission Dx: Yes Respiratory Failure: Severe Resp Distress LIA YARBROUGH MD 07/09/21 0728: CARDIO Progress Notes Plan Plan Late entry for 07/08/2021 Patient seen and examined. Agree with above nurse practitioner note. He needs follow-up with pulmonary service. We will follow up on a routine basis. JUSTICE SOLORIO APRN Jul 08, 2021 13:19 LIA YARBROUGH MD Jul 09, 2021 07:28
--- NOTE | 2021-07-08 14:52 | NUR ---
pt was discharged home with oxygen and home health. the pulmonary consult was not done in house, was advised by Dr Abdullahi that the pt can consult outpatient. Gave pt the appt card for the pulmonary dept and instructions to call to make appt when he gets home, he was wheeled down to the main entrance by [employer] and then picked up by his . Jorge Wesley RN
== END 2021-07-08 14:35 | disposition home health service (06) | DRG 291 ==
LOC: ER 13:29 → 5 SOUTH 14:56
PROVIDERS: ADMIT Internal Medicine; ATTEND Internal Medicine
PROC: 5A09357 Assistance with Respiratory Ventilation, Less than 24 Consecutive Hours, Continuous Positive Airway Pressure (ICD-10-PCS; principal; 2021-07-04)
PROC: 5A09357 Assistance with Respiratory Ventilation, Less than 24 Consecutive Hours, Continuous Positive Airway Pressure (ICD-10-PCS; 2021-07-06)
PROC: 5A09357 Assistance with Respiratory Ventilation, Less than 24 Consecutive Hours, Continuous Positive Airway Pressure (ICD-10-PCS; 2021-07-07)
DX: I13.0 Hypertensive heart and chronic kidney disease with heart failure and stage 1 through stage 4 chronic kidney disease, or unspecified chronic kidney disease (principal); N17.0 Acute kidney failure with tubular necrosis; J96.01 Acute respiratory failure with hypoxia; I50.33 Acute on chronic diastolic (congestive) heart failure; J44.1 Chronic obstructive pulmonary disease with (acute) exacerbation; E87.0 Hyperosmolality and hypernatremia; E66.9 Obesity, unspecified; E78.00 Pure hypercholesterolemia, unspecified; E78.5 Hyperlipidemia, unspecified; G47.33 Obstructive sleep apnea (adult) (pediatric); G89.29 Other chronic pain; G62.9 Polyneuropathy, unspecified; R79.89 Other specified abnormal findings of blood chemistry; I50.9 Heart failure, unspecified; M54.50 Low back pain, unspecified; I25.10 Atherosclerotic heart disease of native coronary artery without angina pectoris; I25.2 Old myocardial infarction; I73.9 Peripheral vascular disease, unspecified; N18.9 Chronic kidney disease, unspecified; Z20.822 Contact with and (suspected) exposure to COVID-19; Z79.899 Other long term (current) drug therapy; Z80.1 Family history of malignant neoplasm of trachea, bronchus and lung; Z82.3 Family history of stroke; Z82.49 Family history of ischemic heart disease and other diseases of the circulatory system; Z87.891 Personal history of nicotine dependence; Z68.31 Body mass index [BMI] 31.0-31.9, adult; Z95.5 Presence of coronary angioplasty implant and graft; Z98.1 Arthrodesis status; Z87.01 Personal history of pneumonia (recurrent)
CPT/HCPCS: 36415; 36600; 71045; 71250; 80048; 80053; 81001; 82805; 83036; 83735; 83880; 84100; 84443; 84484; 85025; 87426; 93005; 93306; 94618; 94640; 95811; 96374; 96375; J1650; J1940; J2920; J2930; U0003; 99285-25; C8929; G0378; J7626

== ENCOUNTER → 2021-08-07 | Outpatient (CLI) | payer MEDICARE, BC ==
[2021-07-08 11:00] VITALS: BP 112/46
[~2021-08-07] MED LIST changes: +CARV6.2511 PO; +DEXAMETHASONE PRES.FREE 10 MG/ML VIAL. ONE; +DONE5TAB7 PO; +IBUP800T19 PO; +IOHEXOL 180 MG/ML 10 ML VIAL. ONE
--- NOTE | 2021-08-07 12:53 | PDOC4 ---
Procedure Note: ICD 10 Code: ICD 10 Code: M54.16 M 96.1 M4 7.816 Procedure Note: Patient was consented for lumbar epidural steroid injection with fluoroscopic guidance. Risks were discussed including but not limited to: Bleeding, infection, possibility of epidural hematoma and subsequent neurological compromise, dural puncture, headaches, spinal cord and/or nerve damage, side effects of steroid medication, and poor results regarding pain control. Patient understands and wished to proceed. Procedure is lumbar epidural steroid injection under local anesthetic using st erile prep and drape at the L5-S1 level using C-arm fluoroscopic guidance in both AP and lateral views medications injected is 20 mg dexamethasone +10mL preservative-free normal saline and 2 mL contrast- condition at discharge is stable patient tolerated procedure well had no complications. ARBEN BUNCH MD Aug 07, 2021 12:53
--- NOTE | 2021-08-07 12:53 | PDOC ---
Progress Note - Pain Clinic Date of Service: DOS: DATE: 08/07/21 TIME: 12:49 Diagnosis: Dx: Lumbar radiculopathy with lumbar spondylosis and lumbar postlaminectomy syndrome Myofascial pain History or Present Illness: HPI: 86-year-old male returns for follow-up status post trigger point injections on May 01, 2021. Patient ports he did very well with pain in the back and left hip but reports the pain now is different and is a creasing in the low back and radiating into the posterior hip and posterior thigh to the level of the knee and top of the calf on the left side worse with walking standing changing position specially getting up from a seated position he feels it radiating down the leg better with sitting or laying down generally does not awaken from sleep at night patient reports that it is a 9 on scale 10 is worse over the past week 5 on average 5 at its least and is a 5 today. Patient reports no loss of motor function with significant fatigability of the left lower extremity with walking standing. Patient reports his back is feeling better as it is less tight in the back but now the radiating pain the left leg is becoming much more noticeable. Patient reports no bowel or bladder incontinence no loss of motor function but significant fatigability with the left leg and is using a walker to ambulate on his visit today. Physical Exam: VS: Blood pressure is 95/44 pulse 52 respirations 18 temperature 98.1 F height is 5 foot 4 inches weight is 198 pounds. PE: PHYSICAL EXAMINATION: GENERAL: The patient is awake, alert, oriented, appropriate, very pleasant in demeanor HEENT: Shows normocephalic, atraumatic. Extraocular movements are intact and symmetrical. Oral cavity: Mucous membranes moist and pink. Dentition is intact. NECK: Shows anterior throat supple without palpable lymphadenopathy noted. Swallow reflex symmetrical. CHEST: Shows normal on inspection. Breath sounds are clear bilaterally, distant but no rales or rhonchi. HEART: Shows S1, S2 clear. No murmurs auscultated. ABDOMEN: Soft, nontender, nondistended. No palpable organomegaly is noted. BACK: Shows spine grossly in the midline. Normal-appearing cervical lordotic curvature. There is moderately increased thoracic kyphosis, some flattening of the lumbar lordotic curvature with well-healed surgical scarring again noted. Lumbar paraspinous muscles show symmetrical on inspection, on palpation shows some moderate tenderness diffusely throughout the upper, middle and lower distribution of the paraspinous muscles without specific trigger points, without radiation of pain. The patient has good rotational motion of the lumbar spine, both laterally as well as extension and flexion without significant difficulty. No tenderness over the spinous processes, sacrum or sacroiliac regions. EXTREMITIES: Lower extremities show deep tendon reflexes 2+ in the patellar and tendo calcaneus tendons. Motor exam is 5 on a scale of 5 with right dorsiflexion, extension, quadriceps and hamstring flexion and 4/5 on the left. Peripheral pulses are 1+ posterior tibial. No peripheral edema is noted bilaterally. Lower extremities are warm and dry. SKIN: Shows warm and dry, good turgor. No edema. No sores, rashes or bruising throughout. Procedure: Procedure: Options were discussed with the patient. Patient's old chart was reviewed his current medication regimen updated current review of systems updated today as well. We will proceed with a lumbar epidural steroid ejections today with fluoroscopic guidance. Risks were discussed including but not limited to: Bleeding, infection, possibility of epidural hematoma and subsequent neurological compromise, dural puncture, headaches, spinal cord and/or nerve damage, side effects of steroid medication, and poor results regarding pain control. Patient understands and wished to proceed. Patient will return to the clinic in approximately 2 weeks for follow-up, was counseled as to return appointment, activity level, and side effects to be aware of. Medication Injected: Med Injected: Procedure is lumbar epidural steroid injection under local anesthetic using sterile prep and drape at the L5-S1 level using C-arm fluoroscopic guidance in both AP and lateral views medications injected is 20 mg dexamethasone +10mL preservative-free normal saline and 2 mL contrast- condition at discharge is stable patient tolerated procedure well had no complications. Condition at Discharge: Condition at Discharge: Condition at discharge is stable, patient tolerated the procedure well and had no complications. ARBEN BUNCH MD Aug 07, 2021 12:53
== END | disposition home or self-care (01) ==
LOC: PNCL 11:10
PROVIDERS: ATTEND Anesthesiology
DX: M47.26 Other spondylosis with radiculopathy, lumbar region (principal); M96.1 Postlaminectomy syndrome, not elsewhere classified; M79.18 Myalgia, other site; I11.0 Hypertensive heart disease with heart failure; I50.9 Heart failure, unspecified; E78.00 Pure hypercholesterolemia, unspecified; J44.9 Chronic obstructive pulmonary disease, unspecified; I25.10 Atherosclerotic heart disease of native coronary artery without angina pectoris; G47.30 Sleep apnea, unspecified; E66.9 Obesity, unspecified; M19.90 Unspecified osteoarthritis, unspecified site; M10.9 Gout, unspecified; Z87.891 Personal history of nicotine dependence; Z79.899 Other long term (current) drug therapy; Z98.890 Other specified postprocedural states
CPT/HCPCS: 62323; J1100; Q9965

== ENCOUNTER 2021-08-12 06:59 | Outpatient (CLI) | payer MEDICARE, BC ==
[2021-08-12] VITALS (9 sets, daily range): BP systolic 122–140; BP diastolic 53–70
[~2021-08-12] VITALS: Ht 170.2 cm; Wt 88.6 kg
[~2021-08-12 06:59] MED LIST changes: -DEXAMETHASONE PRES.FREE 10 MG/ML VIAL. ONE; -IOHEXOL 180 MG/ML 10 ML VIAL. ONE
[2021-08-12] MEDS ORDERED: HEPARIN for ARTERIAL LINE 1,500 ML ONE (07:37)
[2021-08-12] MEDS ORDERED: LIDOCAINE 1% Multi-Dose 20 ML VIAL. ONE (07:37)
[2021-08-12] MEDS ORDERED: IODIXANOL 320 MG/ML 100 ML VIAL. ONE (07:38)
[2021-08-12 07:48] LABS: HEMATOCRIT 32.2 % (39.0-53.0); RED BLOOD COUNT 3.63 x10^6/uL (4.30-5.70); RED CELL DISTRIBUTION WIDTH 17.3 % (11.5-14.5); WHITE BLOOD COUNT 5.7 x10^3/uL (4.0-11.0)
[2021-08-12] MEDS ORDERED: CARV12.5 PO (07:48)
[2021-08-12 08:21] LABS: CALCIUM 8.6 mg/dL (8.5-10.1); CREATININE 1.4 mg/dL (0.7-1.3); GFR 48.3; POTASSIUM 3.8 mmol/L (3.5-5.1)
[2021-08-12 08:22] LABS: PROTHROMBIN TIME PATIENT 14.1 SEC (11.7-14.0)
[2021-08-12] MEDS ORDERED: fentaNYL PF VIAL 100 MCG/2 ML VIAL ONE (08:30)
[2021-08-12] MEDS ORDERED: VERAPAMIL 5 MG/2 ML VIAL. ONE (08:31)
[2021-08-12] MEDS ORDERED: HEPARIN for IV BOLUS 10,000 UNIT/10 ML VIAL. ONE (08:31)
[2021-08-12] MEDS ORDERED: MIDAZOLAM HCL/PF 2 MG/2 ML VIAL. ONE (08:31)
[2021-08-12] MEDS ORDERED: NITROGLYCERIN 200 MCG/2 ML SYRINGE FOR CATH/VASC LAB. ONE (08:31)
[2021-08-12] MEDS ORDERED: HEPARIN for IV BOLUS 10,000 UNIT/10 ML VIAL. IART ONE (09:15)
[2021-08-12] MEDS ORDERED: LIDOCAINE 2% Multi-Dose 20 ML VIAL. IJ ONE (09:15)
[2021-08-12] MEDS: IODIXANOL 320 MG/ML 100 ML VIAL. IART ONE (09:15)
[2021-08-12] MEDS ORDERED: NITROGLYCERIN 200 MCG/2 ML SYRINGE FOR CATH/VASC LAB. IART ONE (09:15)
[2021-08-12] MEDS ORDERED: MIDAZOLAM HCL/PF 2 MG/2 ML VIAL. IV ONE (09:15)
[2021-08-12] MEDS ORDERED: fentaNYL PF VIAL 100 MCG/2 ML VIAL IV ONE (09:15)
[2021-08-12] MEDS ORDERED: VERAPAMIL 5 MG/2 ML VIAL. IART ONE (09:15)
--- NOTE | 2021-08-12 12:30 | NUR ---
tr BAND DC'D. aRM BOARD REAPPLIED. discharge INSTRUCTIONS REVIEWED WITH PATIENT AND SPOUSE. pT AMBULATED AND TOLERATED po. pt home in private vehicle with family
--- NOTE | 2021-08-12 14:59 | CARD ---
MR#: [id number] Date of Study: 08/12/2021 Ordering Physician: LIA DOMINGO, Referring Physician: LIA DOMINGO, Tech: RT Park(R) APPROVED REPORT Technologist: Zora Dominique RT(R) Nurse: Rama Trinidad RN Procedure(s) performed: fluoro time: 5 min dose: 73 gycm2 contrast: 69 moderate sed: 50min RHC, LHC, Coronary angiography IVUS of the RCA. HISTORY : previous CHF. INDICATION The indication(s) include : unstable angina , dyspnea. [facility] Clinical Frailty Scale [facility] Clinical Frailty Scale: Moderately Frail Heart Failure Heart Failure: Yes If Yes, Newly Diagnosed: No If Yes, HF Type: Diastolic If Yes, NYHA Class: Class II CASE TECHNIQUE IV conscious sedation was used throughout procedure with appropriate monitoring and was performed in the presence of a registered nurse who was an independent trained observer other than the physician p erforming the procedure. During this case, Fluoroscopy and low osmolar contrast were used for imaging . Specimen(s) Removed: N/A Estimated Blood loss: 15 cc's. PROCEDURE NARRATIVE Clinical information: 86-year-old male with past medical history of coronary artery disease presented to the office in the setting of worsening chest discomfort and dyspnea and therefore he was taken to the catheterization l aboratory for further evaluation and treatment. Procedure details: After appropriate informed consent the right neck and right wrist were prepped and draped in usual st erile fashion. Under 1% lidocaine local anesthesia a 5 Croatian sheath was placed in the right interna l jugular vein via ultrasound guidance. Under 1% lidocaine local anesthesia, a 6 Croatian sheath was p laced in the right radial artery. Next, diagnostic angiography was performed with a 6 Croatian TIG cat heter. Left ventricular end-diastolic pressure was obtained with a 6 Croatian TIG catheter and a pullb ack was performed. Findings: RA: 13 mm Hg RV: 46/4/15 PA: 46/14/29 Wedge 15 mm hg PA sat: 67.6% Radial Art sat: 92% Merna CO: 6.5L/min Merna CI: 3.3 Coronary angiography: Left main is a short moderate caliber vessel with normal angiographic appearance LAD is a moderate caliber vessel with a proximal calcific 50% eccentric stenosis. Left circumflex is a small caliber nondominant vessel with mild luminal irregularities RCA is a large caliber dominant vessel with patent stents in the proximal and mid segment, distal to the stents there is a focal eccentric calcific 80 to 90% stenosis. The distal vessel has mild lumina l irregularities. Interventional technique: Intravascular ultrasound of the right coronary artery Heparin was used for anticoagulation. Through a 6 [place]ian JR4 guide catheter a [place] wire was plac ed in the distal RCA. The intravascular ultrasound confirmed heavy calcific lesion. Final angiograp hy demonstrated no evidence of guide or wire related complications. At case completion the right rad ial sheath was removed and hemostasis was achieved via a Terumo radial band. No acute complications. Conclusion 1. Normal left-sided filling pressures 2. Two-vessel coronary artery disease with patent stents in the RCA Recommendations 1. Given the heavy calcific nature of the patient's stenosis, prior proximal stents in the RCA we wi ll plan for shockwave balloon angioplasty with stent placement. 2. F/u in 2 weeks for planned outpt shock wave therapy for staged PCI given patient's CKD. Signed by : Lia Domingo, Electronically Approved : 08/12/2021 14:58:58
--- NOTE | 2021-08-18 15:54 | CARD ---
PROCEDURE: Coronaries and Rt Heart Cath MR#: [id number] Date of Study: 08/12/2021 Ordering Physician: LIA DOMINGO, Referring Physician: LIA DOMINGO, Tech: RT Park(R) APPROVED REPORT Technologist: Zora Dominique RT(R) Nurse: Rama Trinidad RN Procedure(s) performed: fluoro time: 5 min dose: 73 gycm2 contrast: 69 moderate sed: 50min RHC, LHC, Coronary angiography IVUS of the RCA. HISTORY : previous CHF. INDICATION The indication(s) include : unstable angina , dyspnea. [facility] Clinical Frailty Scale [facility] Clinical Frailty Scale: Moderately Frail Heart Failure Heart Failure: Yes If Yes, Newly Diagnosed: No If Yes, HF Type: Diastolic If Yes, NYHA Class: Class II CASE TECHNIQUE IV conscious sedation was used throughout procedure with appropriate monitoring and was performed in the presence of a registered nurse who was an independent trained observer other than the physician performing the procedure. During this case, Fluoroscopy and low osmolar contrast were used for imaging. Specimen(s) Removed: N/A Estimated Blood loss: 15 cc's. PROCEDURE NARRATIVE Clinical information: 86-year-old male with past medical history of coronary artery disease presented to the office in the setting of worsening chest discomfort and dyspnea and therefore he was taken to the catheterization laboratory for further evaluation and treatment. Procedure details: After appropriate informed consent the right neck and right wrist were prepped and draped in usual sterile fashion. Under 1% lidocaine local anesthesia a 5 Gu[place]ian sheath was placed in the right internal jugular vein via ultrasound guidance. Under 1% lidocaine local anesthesia, a 6 [place]amanian sheath was placed in the right radial artery. Next, diagnostic angiography was performed with a 6 Guamanian TIG catheter. Left ventricular end-diastolic pressure was obtained with a 6 [place]ian TIG catheter and a pullback was performed. Findings: RA: 13 mm Hg RV: 46/4/15 PA: 46/14/29 Wedge 15 mm hg PA sat: 67.6% Radial Art sat: 92% Merna CO: 6.5L/min Merna CI: 3.3 Coronary angiography: Left main is a short moderate caliber vessel with normal angiographic appearance LAD is a moderate caliber vessel with a proximal calcific 50% eccentric stenosis. Left circumflex is a small caliber nondominant vessel with mild luminal irregularities RCA is a large caliber dominant vessel with patent stents in the proximal and mid segment, distal to the stents there is a focal eccentric calcific 80 to 90% stenosis. The distal vessel has mild luminal irregularities. Interventional technique: Intravascular ultrasound of the right coronary artery Heparin was used for anticoagulation. Through a 6 [place] JR4 guide catheter a [place] wire was placed in the distal RCA. The intravascular ultrasound confirmed heavy calcific lesion. Final angiography demonstrated no evidence of guide or wire related complications. At case completion the right radial sheath was removed and hemostasis was achieved via a Terumo radial band. No acute complications. Conclusion 1. Normal left-sided filling pressures 2. Two-vessel coronary artery disease with patent stents in the RCA Recommendations 1. Given the heavy calcific nature of the patient's stenosis, prior proximal stents in the RCA we will plan for shockwave balloon angioplasty with stent placement. 2. F/u in 2 weeks for planned outpt shock wave therapy for staged PCI given patient's CKD. Signed by : Lia Domingo, Electronically Approved : 08/12/2021 14:58:58 DICTATED and SIGNED BY: LIA DOMINGO MD DATE: 08/12/21 0946 [facility]
[2021-08-25 13:33] LABS: CALCIUM 8.5 mg/dL (8.5-10.1); CREATININE 1.5 mg/dL (0.7-1.3); GFR 44.6; POTASSIUM 3.8 mmol/L (3.5-5.1)
[2021-08-25 13:39] LABS: ALBUMIN 3.5 g/dL (3.4-5.0); ALBUMIN/GLOBULIN RATIO 1.5 (1.0-1.7); TOTAL BILIRUBIN 0.8 mg/dL (0.2-1.0); TOTAL PROTEIN 5.9 g/dL (6.4-8.2)
== END 2021-08-12 12:32 | disposition home or self-care (01) ==
LOC: CCL 06:59
PROVIDERS: ATTEND Internal Medicine Cardiovascular Disease
DX: I25.110 Atherosclerotic heart disease of native coronary artery with unstable angina pectoris (principal); R06.09 Other forms of dyspnea; I11.0 Hypertensive heart disease with heart failure; I50.9 Heart failure, unspecified; E78.00 Pure hypercholesterolemia, unspecified; J44.9 Chronic obstructive pulmonary disease, unspecified; G47.30 Sleep apnea, unspecified; E66.9 Obesity, unspecified; M19.90 Unspecified osteoarthritis, unspecified site; Z79.82 Long term (current) use of aspirin; Z79.899 Other long term (current) drug therapy; Z87.891 Personal history of nicotine dependence; Z98.890 Other specified postprocedural states
CPT/HCPCS: 36415; 76937; 80048; 80053; 85027; 85610; 92978; 93460; 99152; 99153; J1644; J2250; J3010; J3490; Q9967; 37252; 93456; C1753; C1769; C1773; C1894

== ENCOUNTER 2021-08-25 10:21 | Inpatient (IN) | payer MEDICARE, BC ==
[2021-08-25] VITALS (13 sets, daily range): BP systolic 132–184; BP diastolic 57–101
[~2021-08-25] VITALS: Ht 170.2 cm; Wt 85.1 kg
[2021-08-25] MEDS ORDERED: LIDOCAINE 1% PF 2 ML VIAL. ONE (12:12)
[2021-08-25] MEDS ORDERED: IODIXANOL 320 MG/ML 100 ML VIAL. ONE (12:12)
[2021-08-25] MEDS ORDERED: fentaNYL PF VIAL 100 MCG/2 ML VIAL ONE (12:14)
[2021-08-25] MEDS ORDERED: NITROGLYCERIN 200 MCG/2 ML SYRINGE FOR CATH/VASC LAB. ONE ×2 (12:15→13:23)
[2021-08-25] MEDS ORDERED: VERAPAMIL 5 MG/2 ML VIAL. ONE (12:15)
[2021-08-25] MEDS ORDERED: MIDAZOLAM HCL/PF 2 MG/2 ML VIAL. ONE (12:15)
[2021-08-25] MEDS ORDERED: HEPARIN for IV BOLUS 10,000 UNIT/10 ML VIAL. ONE (12:15)
[2021-08-25] MEDS ORDERED: TIROFIBAN 5MG -0.9% NS 100 ML IV ONE (12:49)
[2021-08-25] MEDS ORDERED: INFUSION IV ONE (13:00)
[2021-08-25] MEDS ORDERED: TIROFIBAN IV ONE (13:00)
[2021-08-25] MEDS ORDERED: SODIUM CHLORIDE 5 MG/100 ML IV ONE (13:00)
[2021-08-25] MEDS ORDERED: CLOPIDOGREL BISULFATE 75 MG TABLET ONE (13:42)
[2021-08-25] MEDS ORDERED: LIDOCAINE 1% PF 2 ML VIAL. INJ ONE (13:45)
[2021-08-25] MEDS ORDERED: CLOPIDOGREL BISULFATE 75 MG TABLET PO ONE (13:45)
[2021-08-25] MEDS ORDERED: HEPARIN for IV BOLUS 10,000 UNIT/10 ML VIAL. IV ONE (13:45)
[2021-08-25] MEDS ORDERED: IODIXANOL 320 MG/ML 100 ML VIAL. IART ONE (13:45)
[2021-08-25] MEDS ORDERED: VERAPAMIL 5 MG/2 ML VIAL. IART ONE (13:45)
[2021-08-25] MEDS ORDERED: fentaNYL PF VIAL 100 MCG/2 ML VIAL IV ONE (13:45)
[2021-08-25] MEDS ORDERED: ASPIRIN ENTERIC COATED 81 MG TABLET.DR. PO SCH (13:45)
[2021-08-25] MEDS ORDERED: HEPARIN for IV BOLUS 10,000 UNIT/10 ML VIAL. IART ONE (13:45)
[2021-08-25] MEDS: ASPIRIN CHEWABLE 81 MG TABLET. PO SCH (13:45)
[2021-08-25] MEDS ORDERED: TIROFIBAN 5MG -0.9% NS 100 ML IV PRN (13:45)
[2021-08-25] MEDS ORDERED: NITROGLYCERIN 200 MCG/2 ML SYRINGE FOR CATH/VASC LAB. IART ONE (13:45)
[2021-08-25] MEDS ORDERED: MIDAZOLAM HCL/PF 2 MG/2 ML VIAL. IV ONE (13:45)
[2021-08-25 15:16] LABS: CALCIUM 8.6 mg/dL (8.5-10.1); CREATININE 1.4 mg/dL (0.7-1.3); GFR 48.3; POTASSIUM 3.6 mmol/L (3.5-5.1)
[2021-08-25 15:24] LABS: ALBUMIN 3.5 g/dL (3.4-5.0); ALBUMIN/GLOBULIN RATIO 1.1 (1.0-1.7); TOTAL BILIRUBIN 0.9 mg/dL (0.2-1.0); TOTAL PROTEIN 6.6 g/dL (6.4-8.2)
--- NOTE | 2021-08-25 16:10 | CARD ---
MR#: [id number] Date of Study: 08/25/2021 Ordering Physician: LIA DOMINGO, Referring Physician: LIA DOMINGO, Tech: RT Melquiades(R) APPROVED REPORT Technologist: RT Melquiades(R) Nurse: Rama Trinidad RN Procedure(s) performed: fluoro time: 17.3min dose: 101 gycm2 contrast: 88cc moderate sedation: 78 mins [facility], Coronary angiography PCI of the RCA with intravascular lithotripsy/atherectomy HISTORY : The patient is a 86 year-old with a history of . INDICATION The indication(s) include : unstable angina . [facility] Clinical Frailty Scale [facility] Clinical Frailty Scale: Moderately Frail Heart Failure Heart Failure: Yes If Yes, Newly Diagnosed: No If Yes, HF Type: Diastolic If Yes, NYHA Class: Class II CASE TECHNIQUE IV conscious sedation was used throughout procedure with appropriate monitoring and was performed in the presence of a registered nurse who was an independent trained observer other than the physician p erforming the procedure. During this case, Fluoroscopy and low osmolar contrast were used for imaging . Specimen(s) Removed: N/A Estimated Blood loss: 20 cc's. PROCEDURE NARRATIVE Clinical information: 86-year-old male who presented to the hospital for a planned staged PCI of the right coronary artery with intravascular lithotripsy. Procedure details: After appropriate informed consent the right wrist was prepped and draped in usual sterile fashion. Under 1% lidocaine local anesthesia a 6 American sheath was placed in the right radial artery. Next di agnostic angiography was then performed with a 6 American JR4 guide catheter. The diagnostic angiograp hy confirmed previously known mid right 80% eccentric calcific stenosis. Next, heparin was used for anticoagulation. A Prowater wire was placed in the distal RCA. Balloon angioplasty was then perform ed with a 2.0 mm balloon. Intravascular ultrasound demonstrated a proximal RCA measurement of approx imately 3 mm and therefore a 3 mm shockwave intravascular lithotripsy balloon was used to administer 80 cycles in the mid RCA. Next, a 3 mm noncompliant balloon was used to angioplasty the lesion and w ith the help of a guide liner a 3.0 x 24 Drasco Promus Elite drug-eluting stent was then deployed in an overlapping fashion with the previously placed proximal stent. The overlap segment was then postd ilated with a 3 mm noncompliant balloon. Final angiography demonstrated excellent stent expansion wi th YUNI-3 flow in the vessel no evidence of guide or wire related complications. The right radial sh eath was removed and hemostasis was achieved via manual compression. Patient received 600 mg of Plav ix at case completion. No acute complications YUNI Flow YUNI Flow (Pre-Intervention): YUNI-3 YUNI Flow (Post-Intervention): YUNI-3 Conclusion 1. Successful PCI of the right coronary artery with implantation of a 3.0 x 24 mm Promus drug-elutin g stent after intravascular ultrasound and lithotripsy/atherectomy. 2. Acute on chronic diastolic heart failure, LVEDP 25 mmHg Recommendations Aspirin 81 mg daily Plavix 75 mg daily Medical optimization Signed by : Lia Domingo, Electronically Approved : 08/25/2021 16:09:33
[2021-08-25] MEDS ORDERED: TAMS0.4C97 PO (20:31)
[2021-08-25] MEDS ORDERED: DONEPEZIL HCL 5 MG TABLET. PO SCH (21:00)
[2021-08-26 02:33] VITALS: BP 151/69
[2021-08-26 07:00] VITALS: BP 141/65
[2021-08-26] MEDS ORDERED: CARVEDILOL 12.5 MG TABLET. PO SCH (08:00)
[2021-08-26] MEDS ORDERED: POTASSIUM CHLORIDE 20 MEQ TABLET.ER. PO SCH (08:00)
[2021-08-26] MEDS: ASPIRIN CHEWABLE 81 MG TABLET. PO SCH (08:44)
[2021-08-26] MEDS ORDERED: ATORVASTATIN CALCIUM 40 MG TABLET. PO SCH (09:00)
[2021-08-26] MEDS ORDERED: ALLOPURINOL 300 MG TABLET. PO SCH (09:00)
[2021-08-26] MEDS ORDERED: FUROSEMIDE 40 MG TABLET. PO SCH (09:00)
[2021-08-26] MEDS ORDERED: CLOPIDOGREL BISULFATE 75 MG TABLET PO SCH (09:00)
[2021-08-26] MEDS ORDERED: TAMSULOSIN 0.4 MG CAP.ER.24H. PO SCH (09:00)
[2021-08-26 11:00] VITALS: BP 140/65
--- NOTE | 2021-08-26 11:59 | SNU/HH DC ---
DISCHARGE WITH HOME HEALTH DISCHARGE INFORMATION: Discharge Date: Aug 26, 2021 Final Diagnosis: CAD, S/P PCI Condition on Discharge: Stable CODE STATUS: Code Status: Full HOME HEALTH: Face to Face: I certify this patient is under my care and that I, or a nurse practitioner or physician's showroom sales assistant working with me, had a face to face encounter that meets the physician face to face encounter requirements with this patient on []. RN For Eval/Treatment: Yes WELDER GAS For: Community Resources Pt Meets Homebound Status: Poor coordination w/ amb., Other: (chronic O2) POST DISCHARGE ORDERS: Activity Instructions for Disc: Activity as tolerated Weight Bearing Status after Di: Full weight bearing, As tolerated Bathing Instructions: Shower-keep dressing dry DIET AFTER DISCHARGE: Cardiac Wound/Incision Care: Reinforce dressing PRN Other wound/incision instructi: see post cath instructions CHECKS AFTER DISCHARGE: Checks after discharge: Check blood press - daily, Weigh Yourself Daily FOLLOW-UP: Follow up with: Dr. Domingo as scheduled TREATMENT/EQUIPMENT ORDERS: Adaptive Equipment Issued: None, Front wheeled walker Discharge Respiratory Equipmen: Oxygen CERTIFICATION STATEMENT: Certification Statement: Certification Statement: Based on the above finding, I certify that this patient is confined to the home and needs intermittent shelter care, physical therapy and/or speech therapy, or continues to need occupational therapy.~ This patient is under my care, and I have initiated the establishment of the plan of care.~ This patient will be followed by myself or a community physician who will periodically review the plan of care. Home Meds Active Scripts Clopidogrel Bisulfate (CLOPIDOGREL) 75 Mg Tablet, 75 MG PO DAILYWBKFT for CAD for 30 Days, #30 TAB 6 Refills Prov:SHEELA HARO APRN 08/26/21 Aspirin (ASPIRIN) 81 Mg Tab.chew, 81 MG PO DAILYWBKFT for CAD for 30 Days, #30 TAB.CHEW 6 Refills Prov:SHEELA HARO APRN 08/26/21 Amlodipine Besylate (AMLODIPINE BESYLATE) 10 Mg Tablet, 10 MG PO DAILY for HTN for 30 Days, #30 TAB Prov:GEORGETTE DOUGHERTY MD 07/07/19 Potassium Chloride (KLOR-CON M20) 20 Meq Tab.er.prt, 20 MEQ PO DAILYWBKFT for CHF for 30 Days, #30 TAB.SR Prov:AKIRA BECKWITH MD 07/07/19 Reported Medications Tamsulosin Hcl (FLOMAX) 0.4 Mg Cap.er.24h, 0.4 MG PO HS for urination, TAB 08/25/21 Carvedilol (COREG ) 12.5 Mg Tablet, 12.5 MG PO BIDWMEALS for CARDIAC, TAB 08/12/21 Donepezil Hcl (DONEPEZIL HCL) 5 Mg Tablet, 1 TAB PO QHS for memory 07/04/21 Tamsulosin Hcl (FLOMAX) 0.4 Mg Cap.er.24h, 1 CAP PO DAILY for BPH, #30 CAP 11 Refills 02/08/21 Pregabalin (LYRICA) 150 Mg Capsule, 1 CAP PO BID for neuropathy, #60 CAP 5 Refills 02/08/21 Atorvastatin Calcium (ATORVASTATIN CALCIUM) 40 Mg Tablet, 1 TAB PO DAILY for hld, #30 TAB 5 Refills 02/08/21 Allopurinol (ALLOPURINOL) 300 Mg Tablet, 1 TAB PO DAILY, #30 TAB 5 Refills 03/30/17 Furosemide (LASIX) 40 Mg Tablet, 1 TAB PO DAILY, #90 TAB 1 Refill 06/13/15 Multivits-Min/Fa/Lycopene/Lut (CENTRUM SILVER TABLET) 1 Each Tablet, 1 EACH PO 05/14/15 SHEELA HARO APRN Aug 26, 2021 11:59
--- NOTE | 2021-08-26 12:08 | PDOC3 ---
SHEELA HARO VOCATIONAL EDUCATION PROFESSIONAL 08/26/21 1208: Discharge Summary Visit Information Date of Admission: Aug 25, 2021 Date of Discharge: Aug 26, 2021 Admitting Diagnosis: CAD, Chronic hypoxic respiratory failure, CHF Final Diagnosis CAD, S/P PCI, Chronic respiratory failure, Chronic diastolic CHF, PAD, HTN, HLP, Dementia, PSVT Brief Hospital Course Allergies Allergies Coded Allergies Type Severity Reaction Last Updated Verified No Known Drug Allergies 12/21/18 No Vital Signs Vital Signs Date Time Temp Pulse Resp B/P (MAP) Pulse Ox O2 Delivery O2 Flow Rate FiO2 08/26/21 08:46 65 151/69 08/26/21 08:00 Nasal Cannula 3.0 08/26/21 07:00 97.9 17 95 97.9 Lab Results Laboratory Tests Test 08/25/21 12:52 08/25/21 14:50 Activated Clotting Time 292 sec (92-181) Sodium Level 145 mmol/L (136-145) Potassium Level 3.6 mmol/L (3.5-5.1) Chloride Level 106 mmol/L (98-107) Carbon Dioxide Level 31 mmol/L (21-32) Anion Gap 8 (6-14) Blood Urea Nitrogen 11 mg/dL (8-26) Creatinine 1.4 mg/dL (0.7-1.3) Estimated GFR (Cockcroft-Gault) 48.3 BUN/Creatinine Ratio 8 (6-20) Glucose Level 115 mg/dL (70-99) Calcium Level 8.6 mg/dL (8.5-10.1) Total Bilirubin 0.9 mg/dL (0.2-1.0) Aspartate Amino Transf (AST/SGOT) 17 U/L (15-37) Alanine Aminotransferase (ALT/SGPT) 14 U/L (16-63) Alkaline Phosphatase 110 U/L (46-116) Total Protein 6.6 g/dL (6.4-8.2) Albumin 3.5 g/dL (3.4-5.0) Albumin/Globulin Ratio 1.1 (1.0-1.7) Laboratory Tests Test 08/25/21 12:52 08/25/21 14:50 Activated Clotting Time 292 sec (92-181) Sodium Level 145 mmol/L (136-145) Potassium Level 3.6 mmol/L (3.5-5.1) Chloride Level 106 mmol/L (98-107) Carbon Dioxide Level 31 mmol/L (21-32) Anion Gap 8 (6-14) Blood Urea Nitrogen 11 mg/dL (8-26) Creatinine 1.4 mg/dL (0.7-1.3) Estimated GFR (Cockcroft-Gault) 48.3 BUN/Creatinine Ratio 8 (6-20) Glucose Level 115 mg/dL (70-99) Calcium Level 8.6 mg/dL (8.5-10.1) Total Bilirubin 0.9 mg/dL (0.2-1.0) Aspartate Amino Transf (AST/SGOT) 17 U/L (15-37) Alanine Aminotransferase (ALT/SGPT) 14 U/L (16-63) Alkaline Phosphatase 110 U/L (46-116) Total Protein 6.6 g/dL (6.4-8.2) Albumin 3.5 g/dL (3.4-5.0) Albumin/Globulin Ratio 1.1 (1.0-1.7) Brief Hospital Course Mr. Gandhi is a 86 old male admitted for planned PCI with known CAD. He had a successful PCI of the right coronary artery with implantation of a 3.0 x 24 mm Promus drug-eluting stent after intravascular ultrasound and lithotripsy/atherectomy via right radial arteriotomy. Site and neurovascular status intact. He is significant for PAD, CKD and chronic respiratory failure which are stable. Denies any chest pain or SOA. AOx2, Lungs are clear to auscultation with chronic O2 use at 2-3 LPM. Abdomen is soft and nontender. SR and noted x2 brief episodes of PSVT possibly AFIB. Will arrange for [facility]OT. No significant peripheral edema. VSS. Continue current home regimen with addition of plavix. Cardiac rehab. Home with home health. CHF schneider he is clinically compensated. Continue lasix therapy. Discharge Information Condition at Discharge: Stable Follow Up: Weeks (6) Disposition/Orders: D/C to Home Scheduled Allopurinol (Allopurinol) 300 Mg Tablet, 1 TAB PO DAILY, #30 Ref 5 (Reported) Entered as Reported by: GIOVANNI NOVA on 03/30/17 1436 Last Action: Continued on 08/25/212030 by Arelis Vasquez Amlodipine Besylate (Amlodipine Besylate) 10 Mg Tablet, 10 MG PO DAILY for HTN for 30 Days, #30 Prescribed by: GEORGETTE DOUGHERTY MD on 07/07/19 1633 Last Action: Continued on 08/25/212030 by Arelis Vasquez Aspirin (Aspirin) 81 Mg Tab.chew, 81 MG PO DAILYWBKFT for CAD for 30 Days, #30 Ref 6 Prescribed by: SHEELA HARO on 08/26/21 1212 Atorvastatin Calcium (Atorvastatin Calcium) 40 Mg Tablet, 1 TAB PO DAILY for hld, #30 Ref 5 (Reported) Entered as Reported by: ZARIA ENGEL RN on 02/08/212 Last Action: Continued on 08/25/212030 by Arelis Vasquez Carvedilol (Coreg ) 12.5 Mg Tablet, 12.5 MG PO BIDWMEALS for CARDIAC, (Reported) Entered as Reported by: Zaria Fernandez on 08/12/21 0748 Last Action: Continued on 08/25/212030 by Arelis Vasquez Clopidogrel Bisulfate (Clopidogrel) 75 Mg Tablet, 75 MG PO DAILYWBKFT for CAD for 30 Days, #30 Ref 6 Prescribed by: SHEELA HARO on 08/26/21 1212 Donepezil Hcl (Donepezil Hcl) 5 Mg Tablet, 1 TAB PO QHS for memory, (Reported) Entered as Reported by: JULIO CESAR CARR on 07/04/21 1720 Last Action: Continued on 08/25/212030 by Arelis Vasquez Furosemide (Lasix) 40 Mg Tablet, 1 TAB PO DAILY, #90 Ref 1 (Reported) Entered as Reported by: JUSTICE BUI on 06/13/15 1205 Last Action: Continued on 08/25/212030 by Arelis Vasquez Potassium Chloride (Klor-Con M20) 20 Meq Tab.er.prt, 20 MEQ PO DAILYWBKFT for CHF for 30 Days, #30 Prescribed by: AKIRA BECKWITH MD on 07/07/19 1441 Last Action: Continued on 08/25/212030 by Arelis Vasquez Pregabalin (Lyrica) 150 Mg Capsule, 1 CAP PO BID for neuropathy, #60 Ref 5 (Reported) Entered as Reported by: ZARIA ENGEL RN on 9/25/21 0412 Tamsulosin Hcl (Flomax) 0.4 Mg Cap.er.24h, 1 CAP PO DAILY for BPH, #30 Ref 11 (Reported) Entered as Reported by: ZARIA ENGEL RN on 02/08/21411 Last Action: Continued on 08/25/212030 by Arelis Vasquez Tamsulosin Hcl (Flomax) 0.4 Mg Cap.er.24h, 0.4 MG PO HS for urination, (Reported) Entered as Reported by: Arelis Vasquez on 08/25/212030 Last Action: New Order on 08/25/212030 by Arelis Vasquez Miscellaneous Medications Multivits-Min/Fa/Lycopene/Lut (Centrum Silver Tablet) 1 Each Tablet, 1 EACH PO, (Reported) Entered as Reported by: JUSTICE [facility] on 05/14/15 1632 Patient Instructions Patient Instructions GENERAL INSTRUCTIONS: 1. Your dressing should be removed prior to leaving the hospital. 2. It is OK to shower the day after your procedure. 3. If you received stents, be sure to carry your stent information card with you in your wallet/purse at all times. 4. Call the office immediately at [phone] if you notice any fever or if there is redness, worsening tenderness/pain, increased bruising, or drainage from the puncture site. 5. Should you have bleeding from the site, lie down immediately & put pressure on the site. The pressure should be hard enough to stop the bleeding. Have the nearest person call 911. DO NOT try to drive to the ER with active bleeding. 6. If you notice a change in color, coolness to touch, or loss of feeling in the affected extremity, come to the emergency room. Please have someone drive you or call 911 if no one is available. DO NOT drive yourself. 7. If you normally take glucophage (metformin), please do not take this medicine for 48 hours following your procedure. 8. DO NOT STOP TAKING YOUR PLAVIX OR ASPIRIN UNLESS IT IS CLEARED BY A LABORATORY ANIMAL FACILITY SUPERVISOR OF YOUR PUBLIC HEALTH SOCIAL WORKER AT OUR OFFICE. 9. QUIT SMOKING: the [place] [employer], [place] [employer], & [place] [employer] have cessation resources available on their websites 10. Please have someone available to drive you home from the hospital as you may be limited by sedation medications given during the procedure. Radial Artery (Wrist) access: 1. No pushing, pulling, lifting, typing, or anything that requires repetitive use/movement of the affected wrist for 3 days following your procedure. 2. OK to drive the day following your procedure. (This is because of effects of sedating medications. Call the office at [phone] for any questions or concerns. Justicifation of Admission Dx: Justifications for Admission: Justification of Admission Dx: Yes Respiratory Failure: Severe Resp Distress LIA YARBROUGH MD 08/26/21 1727: Discharge Summary Brief Hospital Course Brief Hospital Course The patient was seen and interviewed as well as examined at the bedside. The chart was reviewed. The case was discussed. Agree with the plan of care. Discharge Information Scheduled Allopurinol (Allopurinol) 300 Mg Tablet, 1 TAB PO DAILY, #30 Ref 5 (Reported) Entered as Reported by: GIOVANNI NOVA on 03/30/17 1436 Last Action: Continued on 08/25/212030 by Arelis Vasquez Amlodipine Besylate (Amlodipine Besylate) 10 Mg Tablet, 10 MG PO DAILY for HTN for 30 Days, #30 Prescribed by: GEORGETTE DOUGHERTY MD on 07/07/19 1633 Last Action: Continued on 08/25/212030 by Arelis Vasquez Aspirin (Aspirin) 81 Mg Tab.chew, 81 MG PO DAILYWBKFT for CAD for 30 Days, #30 Ref 6 Prescribed by: SHEELA HARO on 08/26/21 1212 Atorvastatin Calcium (Atorvastatin Calcium) 40 Mg Tablet, 1 TAB PO DAILY for hld, #30 Ref 5 (Reported) Entered as Reported by: ZARIA ENGEL RN on 02/08/21 0412 Last Action: Continued on 08/25/212030 by Arelis Vasquez Carvedilol (Coreg ) 12.5 Mg Tablet, 12.5 MG PO BIDWMEALS for CARDIAC, (Reported) Entered as Reported by: Zaria Fernandez on 08/12/21 0748 Last Action: Continued on 08/25/212030 by Arelis Vasquez Clopidogrel Bisulfate (Clopidogrel) 75 Mg Tablet, 75 MG PO DAILYWBKFT for CAD for 30 Days, #30 Ref 6 Prescribed by: SHEELA HARO on 08/26/21 1212 Donepezil Hcl (Donepezil Hcl) 5 Mg Tablet, 1 TAB PO QHS for memory, (Reported) Entered as Reported by: JULIO CESAR CARR on 07/04/21 1720 Last Action: Continued on 08/25/212030 by Arelis Vasquez Furosemide (Lasix) 40 Mg Tablet, 1 TAB PO DAILY, #90 Ref 1 (Reported) Entered as Reported by: JUSTICE BUI on 06/13/15 1205 Last Action: Continued on 08/25/212030 by Arelis Vasquez Potassium Chloride (Klor-Con M20) 20 Meq Tab.er.prt, 20 MEQ PO DAILYWBKFT for CHF for 30 Days, #30 Prescribed by: AKIRA BECKWITH MD on 07/07/19 1441 Last Action: Continued on 08/25/212030 by Arelis Vasquez Pregabalin (Lyrica) 150 Mg Capsule, 1 CAP PO BID for neuropathy, #60 Ref 5 (Reported) Entered as Reported by: ZARIA ENGEL RN on 02/08/21411 Tamsulosin Hcl (Flomax) 0.4 Mg Cap.er.24h, 1 CAP PO DAILY for BPH, #30 Ref 11 (Reported) Entered as Reported by: ZARIA ENGEL RN on 02/08/21411 Last Action: Continued on 08/25/212030 by Arelis Vasquez Tamsulosin Hcl (Flomax) 0.4 Mg Cap.er.24h, 0.4 MG PO HS for urination, (Reported) Entered as Reported by: Arelis Vasquez on 08/25/212030 Last Action: New Order on 08/25/212030 by Arelis Vasquez Miscellaneous Medications Multivits-Min/Fa/Lycopene/Lut (Centrum Silver Tablet) 1 Each Tablet, 1 EACH PO, (Reported) Entered as Reported by: [facility] on 05/14/15 1632 SHEELA HARO APRN Aug 26, 2021 12:08 LIA YARBROUHG MD Aug 26, 2021 17:27
[2021-08-26] MEDS ORDERED: ASPI-630 PO (12:12)
[2021-08-26] MEDS ORDERED: CLOP75TA PO (12:12)
--- NOTE | 2021-08-26 12:45 | NUR ---
SS following for discharge planning. SS reviewed pt chart and discussed with pt RN. Pt is from home with spouse. Cardiology following. Discharge order on the chart for home with home healthcare. Pt is current on services with [facility], ; fax [phone]. Discharge orders and referral sent to [facility]. Pt's RN notified.
== END 2021-08-26 15:00 | disposition home health service (06) | DRG 246 ==
LOC: CCL 10:21 → 6 SOUTH 13:34
PROVIDERS: ADMIT Internal Medicine Cardiovascular Disease; ATTEND Internal Medicine Cardiovascular Disease
PROC: 027034Z Dilation of Coronary Artery, One Artery with Drug-eluting Intraluminal Device, Percutaneous Approach (ICD-10-PCS; principal; 2021-08-25)
PROC: 02C03ZZ Extirpation of Matter from Coronary Artery, One Artery, Percutaneous Approach (ICD-10-PCS; 2021-08-25)
PROC: 02F03ZZ Fragmentation in Coronary Artery, One Artery, Percutaneous Approach (ICD-10-PCS; 2021-08-25)
PROC: 4A023N7 Measurement of Cardiac Sampling and Pressure, Left Heart, Percutaneous Approach (ICD-10-PCS; 2021-08-25)
PROC: B2111ZZ Fluoroscopy of Multiple Coronary Arteries using Low Osmolar Contrast (ICD-10-PCS; 2021-08-25)
DX: I13.0 Hypertensive heart and chronic kidney disease with heart failure and stage 1 through stage 4 chronic kidney disease, or unspecified chronic kidney disease (principal); I50.33 Acute on chronic diastolic (congestive) heart failure; J96.11 Chronic respiratory failure with hypoxia; I47.1 Supraventricular tachycardia; I25.10 Atherosclerotic heart disease of native coronary artery without angina pectoris; E78.5 Hyperlipidemia, unspecified; F03.90 Unspecified dementia, unspecified severity, without behavioral disturbance, psychotic disturbance, mood disturbance, and anxiety; G62.9 Polyneuropathy, unspecified; N18.9 Chronic kidney disease, unspecified; N40.0 Benign prostatic hyperplasia without lower urinary tract symptoms; Z79.899 Other long term (current) drug therapy; Z98.61 Coronary angioplasty status
CPT/HCPCS: 36415; 80053; 85347; 92928; 92978; 99152; 99153; C1725; C1753; C1769; C1894; J1644; J2250; J3010; J3490; Q9967; C1874; C9600; G0378; J3246

== ENCOUNTER → 2021-09-04 | Outpatient (CLI) | payer MEDICARE, BC ==
[2021-08-26 11:00] VITALS: BP 140/65
[~2021-09-04] MED LIST changes: +ASPI-630 PO; +BUPIVACAINE MPF 0.25% 10 ML VIAL. ONE; +CLOP75TA PO; +DEXAMETHASONE PRES.FREE 10 MG/ML VIAL. ONE
--- NOTE | 2021-09-04 11:41 | PDOC4 ---
Procedure Note: ICD 10 Code: ICD 10 Code: M60.89 Procedure Note: Patient was consented for trigger point injections. Risk were discussed including but not limited to bleeding infection possibility of intravascular injection sequelae spread of local anesthetic numbness side effects steroid medication portals regarding pain control. Patient understands wished to proceed. Patient sitting position under sterile prep and drape patient's left side paraspinous musculature left gluteus musculature left vastus lateralis musculature was sterilely prepped and draped in the usual fashion using a 25- gauge needle trigger point areas were identified in each of these muscular groups and after negative aspiration was injected with a total of 8 cc 0.25% bupivacaine and total of 10 mg dexamethasone. Patient tolerated the procedure well and had no complications. ARBEN BUNCH MD Sep 04, 2021 11:41
--- NOTE | 2021-09-04 11:41 | PDOC ---
Progress Note - Pain Clinic Date of Service: DOS: DATE: 09/04/21 TIME: 11:36 Diagnosis: Dx: Lumbar radiculopathy lumbar spondylosis and lumbar postlaminectomy syndrome Myofascial pain History or Present Illness: HPI: 86-year-old male returns for follow-up status post lumbar epidural steroid action x1. Patient reports an 8100% improvement for about a month following the injection with the pain is low back and left lower extremity patient reports pain is returning but is now more in the low back on the left side and is spas tic and tight in nature as well as radiating to the lateral aspect of the left leg patient reports is a 9 on scale 10 is worse over the past week 5 on average 5 its least and is a 6 today patient report is aching and burning grabbing tight and shooting in the low back on the lateral aspect of the left leg as well but much higher than previously. Patient reports no loss of motor function but significant pain and spasticity in the low back and left leg patient reports has been doing very well with distance walking doing household activities try with greater ease and comfort sleeping better at night patient reports beginning to awaken from sleep with a different pain that is more spastic and tight and radiating and dull as it was prior to his last visit. Physical Exam: VS: Blood pressure is 108/41 pulse 73 respirations 18 temperature 97.8 F height is 5 feet 7 inches weight is 189 pounds. PE: PHYSICAL EXAMINATION: GENERAL: The patient is awake, alert, oriented, appropriate, very pleasant in demeanor HEENT: Shows normocephalic, atraumatic. Extraocular movements are intact and symmetrical. Oral cavity: Mucous membranes moist and pink. NECK: Shows anterior throat supple without palpable lymphadenopathy noted. Swallow reflex symmetrical. CHEST: Shows normal on inspection. Breath sounds are clear bilaterally, distant and coarse but no rales or rhonchi auscultated. HEART: Shows S1, S2 clear. No murmurs auscultated. ABDOMEN: Soft, nontender, nondistended. No palpable organomegaly is noted. BACK: Shows spine grossly in the midline. Normal-appearing cervical lordotic curvature. There is moderately increased thoracic kyphosis, some moderate flattening of the lumbar lordotic curvature. Lumbar paraspinous muscles show symmetrical on inspection, on palpation shows some moderate tenderness diffusely throughout the upper, middle and lower distribution of the paraspinous muscles with significant tenderness in the left lumbar paraspinous musculature just superior and inferior to the area of spinal cord stimulator generator and inferior to this as well as into the left gluteus superiorly very firm ropelike musculature in this region as well, also very significant firm ropelike musculature in the left lateral quadricep and the vastus lateralis on the left side only. No radiation is demonstrated but is very firm ropelike musculature consistent with trigger point areas of muscle in these distributions. The patient has good rotational motion of the lumbar spine, both laterally as well as extension and flexion without significant difficulty. No tenderness over the spinous processes, sacrum or sacroiliac regions. EXTREMITIES: Lower extremities show deep tendon reflexes 1+ in the patellar and tendo calcaneus tendons. Motor exam is 5 on a scale of 5 with right dorsiflexion, extension, quadriceps and hamstring flexion and 4/5 on the left. Peripheral pulses are 1+ posterior tibial. No peripheral edema is noted bilaterally. Lower extremities are warm and dry to touch, equal in color and appearance. SKIN: Shows warm and dry, good turgor. No edema. No sores, rashes or bruising throughout. Procedure: Procedure: Options discussed with patient. Patient's old chart was reviewed his current medication regimen updated, and current review of systems updated today as well. We will proceed with trigger point injection of the left paraspinous musculature left gluteus musculature left vastus lateralis musculature. Risk were discussed including but not limited to bleeding infection possibility of intravascular injection sequelae spread of local anesthetic and numbness side effects of steroid medication and poor results regarding pain control. Patient understands and wishes to proceed. Patient return to clinic in approximately 4 weeks for follow-up, was counseled as to return appointment, activity level, and side effect to be aware of. Medication Injected: Med Injected: Patient sitting position under sterile prep and drape patient's left side paraspinous musculature left gluteus musculature left vastus lateralis musculature was sterilely prepped and draped in the usual fashion using a 25- gauge needle trigger point areas were identified in each of these muscular groups and after negative aspiration was injected with a total of 8 cc 0.25% bupivacaine and total of 10 mg dexamethasone. Patient tolerated the procedure well and had no complications. Condition at Discharge: Condition at Discharge: Condition at discharge stable, patient tolerated the procedure well and had no complications. ARBEN BUNCH MD Sep 04, 2021 11:41
== END | disposition home or self-care (01) ==
LOC: PNCL 10:58
PROVIDERS: ATTEND Anesthesiology
DX: M47.26 Other spondylosis with radiculopathy, lumbar region (principal); M96.1 Postlaminectomy syndrome, not elsewhere classified; M79.18 Myalgia, other site; I11.0 Hypertensive heart disease with heart failure; I50.9 Heart failure, unspecified; I25.10 Atherosclerotic heart disease of native coronary artery without angina pectoris; E78.00 Pure hypercholesterolemia, unspecified; J44.9 Chronic obstructive pulmonary disease, unspecified; G47.30 Sleep apnea, unspecified; E66.9 Obesity, unspecified; M19.90 Unspecified osteoarthritis, unspecified site; M10.9 Gout, unspecified; Z87.891 Personal history of nicotine dependence; Z79.82 Long term (current) use of aspirin; Z79.899 Other long term (current) drug therapy; Z98.890 Other specified postprocedural states; Z82.49 Family history of ischemic heart disease and other diseases of the circulatory system
CPT/HCPCS: 20553; J1100; J3490